=== PATIENT | male | born 1965 | race Caucasian/White ===

== ENCOUNTER → 2016-10-14 | Outpatient (CLI) | payer OTHER ==
[~2016-10-14] MED LIST: DVN80 PO; DVN80125 PO; IBUP-1050 PO; IPRA1AER2 INH; LBT/100 PO; MULT-506 PO; SERT-234 PO; SYMIN160 INFIL; TRAM-10 PO
--- NOTE | 2016-10-14 19:36 | DIAGNOSTIC IMAGING REPORT ---
MRI OF THE LEFT KNEE CLINICAL HISTORY: Left knee pain. Twisting injury. COMPARISON STUDY: Radiograph is a left knee dated 07/10/2016. MRI of the left knee dated 07/15/2016. TECHNIQUE: MRI of the left knee was performed utilizing proton density, T1, and T2-weighted sequences in the axial, sagittal, coronal planes. IV contrast was not administered for this examination. FINDINGS: Menisci: There is minimally increased signal within the posterior horn of the medial meniscus. This does not clearly extend to the articular surface, and could represent a small intrasubstance tear versus mucoid degeneration. The body of the lateral meniscus appears truncated, but is similar in appearance to 07/15/2016 examination. No flipped fragment is identified. Ligaments: The anterior and posterior cruciate ligaments are intact. The medial and lateral collateral ligaments are within normal limits. Extensor mechanism: The extensor mechanism is intact. Hoffa's fat pad is normal in appearance. Articular cartilage and bone: There is bony contusion identified within the lateral tibial plateau. There is no MRI evidence of fracture. There is only minimal degenerative cartilage loss in all 3 compartments. A calcified fabella is incidentally noted. Joint effusion: There is a moderate to large joint effusion. Soft tissues: The musculature surrounding the knee joint is normal in bulk and signal intensity. IMPRESSION: 1. There is a bony contusion identified within the lateral tibial plateau. 2. The body of the lateral meniscus appears truncated. This is similar to the 07/15/2016 examination, and no flipped fragment is identified. This may be related to previous partial meniscectomy. Correlation with the clinical and surgical history will be required. 3. Moderate to large joint effusion. 4. There is linear signal abnormality within the posterior horn of the medial meniscus. This does not clearly extend to the inferior articular surface and could represent a small intrasubstance tear versus mucoid degeneration. This was also seen previously. 5. The cruciate and collateral ligaments are well-maintained Electronically signed by: Jordan Barth M.D. 10/14/2016 7:34 PM Dictated Date/Time: 10/14/2016 7:26 PM
== END | disposition home or self-care (01) ==
LOC: C.MRI 18:14
PROVIDERS: ATTEND Orthopaedic Surgery
DX: M25.562 Pain in left knee (principal); M25.462 Effusion, left knee; R93.7 Abnormal findings on diagnostic imaging of other parts of musculoskeletal system

== ENCOUNTER → 2016-12-22 | Outpatient (CLI) | payer OTHER ==
[~2016-12-22] MED LIST changes: +OXYC-57 PO
[2016-12-22 16:38] LABS: BASO ABS # 0.07 K/uL (0-0.2); COMPLETE YES; EOS % 4.5 %; HEMATOCRIT 41.9 % (42-52); LYMPH % 28.3 %; LYMPH ABS # 1.99 K/uL (1.2-3.4); MEAN CELL VOLUME 90.5 fL (80-100); MEAN CORPUSCULAR HEMOGLOBIN 30.2 pg (25-34); MEAN CORPUSCULAR HGB CONC 33.4 g/dl (32-36); MEAN PLATELET VOLUME 9.1 fL (7.4-10.4); MONO % 8.8 %; NEUT % 56.4 %; PLATELET COUNT 215 K/uL (130-400); RED BLOOD COUNT 4.63 M/uL (4.7-6.1); WHITE BLOOD COUNT 7.04 K/uL (4.8-10.8)
[2016-12-22 17:21] LABS: C-REACTIVE PROTEIN < 0.29 mg/dl (0-0.29); RHEUMATOID FACTOR < 10.0 U/mL (0-15)
[2016-12-22 18:08] LABS: LYME DISEASE AB IGG NEG (NEG); LYME DISEASE AB IGM NEG (NEG)
[2016-12-26 20:19] LABS: HLA-B27** TC 528X NEGATIVE (NEGATIVE)
== END | disposition home or self-care (01) ==
LOC: C.LAB 15:13
PROVIDERS: ATTEND Orthopaedic Surgery
DX: M25.562 Pain in left knee (principal); M25.462 Effusion, left knee

== ENCOUNTER → 2017-03-01 | Day surgery (SDC) | payer OTHER ==
[2017-02-01 15:56] LABS: POTASSIUM 3.8 mmol/L (3.5-5.1)
[2017-02-18 11:18] VITALS: Ht 185.4 cm; Wt 108.0 kg
[~2017-03-01] VITALS: Ht 185.4 cm; Wt 108.0 kg
[~2017-03-01] MED LIST changes: +ATROPINE SULFATE 0.1 MG/ML 5ML SYR IV PRN; +BUPIVACAINE 0.5 % 5 MG/1 ML MPF 30ML VIAL ONE; +CEFAZOLIN 2000 MG/60 ML D5W IV SCH; +DEXAMETHASONE SOD INJ 4 MG/ML VIAL ONE; -DVN80125 PO; +EpHEDrine SULFATE 50MG/5ML SYR ONE; +EpHEDrine SULFATE INJ 50 MG/ML AMP IV PRN; +EpINEphrine INJ 1MG/ML AMP 1 MG/ML AMP ONE; +FENTANYL CITRATE INJ 50 MCG/1 ML 2 ML VIAL IV PRN; +FENTANYL CITRATE INJ 50 MCG/1 ML 2 ML VIAL ONE; +FLUMAZENIL 0.1 MG/1 ML 10 ML VIAL IV PRN; +HYDROmorphone INJ 2 MG/ML SYR/VIAL IV PRN; -IBUP-1050 PO; +KETOROLAC TROMETHAMINE 30 MG/ML VIAL IV STA; +KETOROLAC TROMETHAMINE 30 MG/ML VIAL ONE; +LABETALOL HCL IV 5 MG/ML 20ML IV PRN; +LACTATED RINGER'S 1000ML 1,000 ML IV SCH; +LIDOCAINE HCL 2% 2 ML VIAL (20MG/ML) ONE; +MEPERIDINE HCL 25 MG/ML CARP IV PRN; +MIDAZOLAM HCL 1 MG/ML 2ML VIAL ONE; +NALOXONE HCL 0.4 MG/1 ML VIAL/CARP IV PRN; +ONDANSETRON INJ 2 MG/ML 2 ML VIAL IV PRN; +ONDANSETRON INJ 2 MG/ML 2 ML VIAL ONE; -OXYC-57 PO; +OXYCODONE/ACETAMINOPHEN 5-325 TAB PO PRN; +PHENYLEPHRINE 100MCG/ML 5ML SYR IV PRN; +PROPOFOL IV EMULSION 10 MG/ML 20 ML VIAL IV ONE; +ROPIVACAINE 0.5% 5 MG/ML 30 ML VIAL ONE; +SODIUM CHLORIDE 0.9% 1000ML 1,000 ML IV SCH
--- NOTE | 2017-03-01 07:23 | History & Physical Bridge - SC ---
H&P Re-Evaluation Bridge Note: I have examined the patient, reviewed the History & Physical and in the interval since the performance of the History & Physical I have noted the following changes of clinical significance: No changes noted
--- NOTE | 2017-03-01 08:43 | [facility] Post Operative Brief Note ---
Immediate Operative Summary Operative Date Mar 01, 2017. Pre-Operative Diagnosis Left Knee Osteoarthritis, Pain Post-Operative Diagnosis Same, DJD LATERAL TIBIAL PLATEAU Procedure(s) Performed left Knee Arthroscopy, Partial Lateral Menisectomy, Synovectomy Surgeon Dr. Jung China Decorator Surgeon(s) Niki Gold PA-C Estimated Blood Loss None Findings ABOVE AND DICTATED Specimens None Anesthesia LMA Complication(s) None Disposition Recovery Room / PACU
--- NOTE | 2017-03-01 08:54 | Discharge Instructions-SurgCtr ---
Discharge Instructions Date of Service Mar 01, 2017. Visit Reason for Visit: Left Knee Osteoarthritis, Pain Discharge Discharge Diagnosis / Problem: SAME ABOVE Discharge Goals Goal(s): Decrease discomfort, Improve function Activity Recommendations Activity Limitations: as noted below Lifting Limitations: gradually increase as tolerated Exercise/Sports Limitations: until after follow-up appointment Shower/Bathe: may shower/bathe in 3 days Anesthesia . Post Anesthesia Instructions: If you have had General Anesthesia or IV Sedation: * Do not drive today. * Resume driving when surgeon permits. * Do not make important decisions or sign legal documents today. * Call surgeon for: 1. Temperature elevations greater than 101 degrees F. 2. Uncontrollable pain. 3. Excessive bleeding. 4. Persistent nausea and vomiting. 5. Medication intolerance (nausea, vomiting or rash). * For nausea and vomiting use only clear liquids such as: tea, soda, bouillon until nausea subsides, then gradually increase diet as tolerated. * If you have any concerns or questions, call your surgeon's office. If physician is unavailable and it is an emergency, call 911 or go to the nearest emergency room. . Instructions / Follow-Up Instructions / Follow-Up MEDICATIONS: * Resume previous medications unless instructed otherwise by your surgeon. * Always take pain medication on a full stomach or with food to avoid upset stomach. * Do not drink alcohol or drive while taking narcotics. * Ibuprofen or Tylenol may be taken if narcotic not needed. SPECIAL CARE INSTRUCTIONS: __ None _X_ Keep extremity elevated and iced x 48 hours; apply ice 20-30 minutes 8-10 times/day. May remove at night. __ Crutches __ May discard when able __ Brace/Post-op shoe __ 24 hrs/day __ Remove at night _X_ Dressing __ Maintain until seen in office, may shower with plastic over site _X_ Remove dressings in 24-48 hours and then may shower _X_ Cover incisions with band-aids after showering __ Do not remove steri-strips Call physician if chills or temperature rises above 102 degrees or pain unrelieved by prescribed pain medications. Office [phone] Diet Recommendations Home Diet: resume previous diet Procedures Procedures Performed: left Knee Arthroscopy, Partial Lateral Menisectomy, Synovectomy Pending Studies Studies pending at discharge: no Medical Emergencies . Who to Call and When: Medical Emergencies: If at any time you feel your situation is an emergency, please call 911 immediately. . Non-Emergent Contact Non-Emergency issues call your: Primary Care Provider . . "Provider Documentation" section prepared by Joey Gold. . [place] Drug Monitoring Program Search Results: no issues identified
--- NOTE | 2017-03-01 10:15 | Anesthesia Progress Nt - [facility] ---
Anesthesia Post Op Note Date & Time Mar 01, 2017 at 10:15 Vital Signs Pain Intensity: 4 Vital Signs Past 12 Hours Date Time Temp Pulse Resp B/P (MAP) Pulse Ox O2 Delivery O2 Flow Rate FiO2 03/01/17 10:02 Room Air 03/01/17 08:58 36.4 73 16 99/63 95 Diffusion Mask 5 03/01/17 07:16 36.5 73 16 152/87 (108) 95 Room Air Notes Mental Status: alert / awake / arousable, participated in evaluation Pt Amnestic to Procedure: Yes Nausea / Vomiting: adequately controlled Pain: adequately controlled Airway Patency, RR, SpO2: stable & adequate BP & HR: stable & adequate Hydration State: stable & adequate Anesthetic Complications: no major complications apparent
[2017-03-01 10:30] VITALS: TEMP 36.4
[2017-03-01 10:56] VITALS: BP 136/81; PULSE 72; O2SAT 95
== END | disposition home or self-care (01) ==
LOC: X.SURG 07:03
PROVIDERS: ATTEND Orthopaedic Surgery
DX: M23.269 Derangement of other lateral meniscus due to old tear or injury, unspecified knee (principal); M25.462 Effusion, left knee; M17.9 Osteoarthritis of knee, unspecified; I10 Essential (primary) hypertension; Z98.1 Arthrodesis status

== ENCOUNTER → 2017-03-18 | Outpatient (CLI) | payer OTHER ==
[~2017-03-18] MED LIST changes: -ATROPINE SULFATE 0.1 MG/ML 5ML SYR IV PRN; -BUPIVACAINE 0.5 % 5 MG/1 ML MPF 30ML VIAL ONE; -CEFAZOLIN 2000 MG/60 ML D5W IV SCH; -DEXAMETHASONE SOD INJ 4 MG/ML VIAL ONE; -EpHEDrine SULFATE 50MG/5ML SYR ONE; -EpHEDrine SULFATE INJ 50 MG/ML AMP IV PRN; -EpINEphrine INJ 1MG/ML AMP 1 MG/ML AMP ONE; -FENTANYL CITRATE INJ 50 MCG/1 ML 2 ML VIAL IV PRN; -FENTANYL CITRATE INJ 50 MCG/1 ML 2 ML VIAL ONE; -FLUMAZENIL 0.1 MG/1 ML 10 ML VIAL IV PRN; -HYDROmorphone INJ 2 MG/ML SYR/VIAL IV PRN; -KETOROLAC TROMETHAMINE 30 MG/ML VIAL IV STA; -KETOROLAC TROMETHAMINE 30 MG/ML VIAL ONE; -LABETALOL HCL IV 5 MG/ML 20ML IV PRN; -LACTATED RINGER'S 1000ML 1,000 ML IV SCH; -LIDOCAINE HCL 2% 2 ML VIAL (20MG/ML) ONE; -MEPERIDINE HCL 25 MG/ML CARP IV PRN; -MIDAZOLAM HCL 1 MG/ML 2ML VIAL ONE; -NALOXONE HCL 0.4 MG/1 ML VIAL/CARP IV PRN; -ONDANSETRON INJ 2 MG/ML 2 ML VIAL IV PRN; -ONDANSETRON INJ 2 MG/ML 2 ML VIAL ONE; -OXYCODONE/ACETAMINOPHEN 5-325 TAB PO PRN; -PHENYLEPHRINE 100MCG/ML 5ML SYR IV PRN; -PROPOFOL IV EMULSION 10 MG/ML 20 ML VIAL IV ONE; -ROPIVACAINE 0.5% 5 MG/ML 30 ML VIAL ONE; -SODIUM CHLORIDE 0.9% 1000ML 1,000 ML IV SCH
--- NOTE | 2017-03-18 13:27 | DIAGNOSTIC IMAGING REPORT ---
ULTRASOUND LEFT LOWER EXTREMITY VENOUS CLINICAL HISTORY: Left leg pain. COMPARISON STUDY: Left lower extremity venous ultrasound dated 10/25/2014. TECHNIQUE: Real-time, grayscale, and color Doppler sonography of the deep veins of the left lower extremity was performed from the inguinal crease to the calf. Compression and augmentation were utilized. FINDINGS: There is no sonographic evidence of deep venous thrombosis identified in the left lower extremity. The common femoral, superficial femoral, and popliteal veins are patent and normally compressible. The greater saphenous vein and the profunda femoris vein at the junction with the common femoral vein are clear. The visualized calf veins are patent. IMPRESSION: There is no sonographic evidence of deep venous thrombosis identified in the left lower extremity. Electronically signed by: Jordan Barth M.D. 03/18/2017 1:25 PM Dictated Date/Time: 03/18/2017 1:25 PM
== END | disposition home or self-care (01) ==
LOC: C.ULTRBC 12:51
PROVIDERS: ATTEND Orthopaedic Surgery
DX: M79.605 Pain in left leg (principal); R60.0 Localized edema

== ENCOUNTER 2017-06-05 00:38 | Emergency (ER) | payer OTHER ==
[~2017-06-05] VITALS: Ht 185.4 cm; Wt 130.3 kg
[2017-06-05 00:47] VITALS: Ht 185.4 cm; Wt 130.3 kg
[2017-06-05] MEDS ORDERED: SODIUM CHLORIDE 0.9% 1000ML 1,000 ML IV STA ×2 (01:22→02:55)
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
[2017-06-05 01:43] LABS: BASO % 0.4 %; BASO ABS # 0.04 K/uL (0-0.2); COMPLETE YES; HEMATOCRIT 43.9 % (42-52); IG% 1.5 %; LYMPH % 25.8 %; LYMPH ABS # 2.69 K/uL (1.2-3.4); MEAN CORPUSCULAR HEMOGLOBIN 30.1 pg (25-34); MEAN CORPUSCULAR HGB CONC 34.2 g/dl (32-36); MEAN PLATELET VOLUME 9.5 fL (7.4-10.4); NEUT % 62.3 %; PLATELET COUNT 252 K/uL (130-400); RED BLOOD COUNT 4.99 M/uL (4.7-6.1); WHITE BLOOD COUNT 10.41 K/uL (4.8-10.8)
[2017-06-05] MEDS ORDERED: OPTIRAY 320 IV PRN (01:45)
[2017-06-05 01:57] LABS: BUN/CREATININE RATIO 13.8 (10-20); CALCIUM 8.3 mg/dl (8.5-10.1); CREATININE 1.31 mg/dl (0.60-1.40)
[2017-06-05] MEDS ORDERED: ACETAMINOPHEN 500 MG TAB PO STA (02:14)
[2017-06-05 02:28] LABS: MAGNESIUM 2.3 mg/dl (1.8-2.4)
[2017-06-05] MEDS ORDERED: OXYC-57 PO (03:56)
[2017-06-05] MEDS ORDERED: METOCLOPRAMIDE HCL INJ 5 MG/ML 2 ML VIAL IV STA (04:09)
[2017-06-05 04:40] VITALS: BP 142/80; PULSE 99; TEMP 36.5; O2SAT 94
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
== END 2017-06-05 04:39 | disposition home or self-care (01) ==
LOC: EDBD 00:38 → C.EDB 00:39
DX: F10.129 Alcohol abuse with intoxication, unspecified (principal); Y90.7 Blood alcohol level of 200-239 mg/100 ml; S09.90XA Unspecified injury of head, initial encounter; S00.03XA Contusion of scalp, initial encounter; Y04.8XXA Assault by other bodily force, initial encounter; M54.2 Cervicalgia; I10 Essential (primary) hypertension; M47.22 Other spondylosis with radiculopathy, cervical region; Z82.49 Family history of ischemic heart disease and other diseases of the circulatory system

== ENCOUNTER → 2017-08-03 | Outpatient (CLI) | payer OTHER ==
[~2017-08-03] MED LIST changes: +OXYC-57 PO; -TRAM-10 PO
--- NOTE | 2017-08-03 14:46 | DIAGNOSTIC IMAGING REPORT ---
L RIBS UNILATERAL WITH PA CHEST HISTORY: 51 years-old Male R07.89 OTHER CHEST PAIN acute left-sided atypical chest pain COMPARISON: Chest radiograph 11/03/2014 TECHNIQUE: PA view the chest with 4 views of the left ribs FINDINGS: Cardiomediastinal and hilar silhouettes are within normal limits. No pneumothorax, pleural effusion, focal airspace consolidation or overt pulmonary edema. Fusion hardware of the lower cervical spine. No acute rib fracture identified. IMPRESSION: 1. No acute cardiopulmonary process. 2. No acute rib fracture or pneumothorax identified. The above report was generated using voice recognition software. It may contain grammatical, syntax or spelling errors. Electronically signed by: Wang Means M.D. 08/03/2017 2:45 PM Dictated Date/Time: 08/03/2017 2:42 PM
== END | disposition home or self-care (01) ==
LOC: C.RAD1850 14:23
PROVIDERS: ATTEND Family Medicine
DX: R07.89 Other chest pain (principal)

== ENCOUNTER → 2017-08-24 | Outpatient (CLI) | payer OTHER ==
[2017-08-24 15:41] LABS: BASO % 0.6 %; BASO ABS # 0.05 K/uL (0-0.2); EOS % 3.3 %; EOS ABS # 0.27 K/uL (0-0.5); HEMATOCRIT 45.2 % (42-52); HEMOGLOBIN 15.8 g/dL (14.0-18.0); IG# 0.04 K/uL (0.00-0.02); LYMPH ABS # 2.05 K/uL (1.2-3.4); MEAN CELL VOLUME 88.3 fL (80-100); MEAN CORPUSCULAR HEMOGLOBIN 30.9 pg (25-34); MEAN PLATELET VOLUME 9.4 fL (7.4-10.4); MONO % 6.7 %; MONO ABS # 0.55 K/uL (0.11-0.59); NEUT % 63.9 %; NEUT ABS # 5.23 K/uL (1.4-6.5); PLATELET COUNT 247 K/uL (130-400); RED CELL DISTRIBUTION WIDTH CV 13.2 % (11.5-14.5); RED CELL DISTRIBUTION WIDTH SD 42.4 fL (36.4-46.3); WHITE BLOOD COUNT 8.19 K/uL (4.8-10.8)
[2017-08-24 16:06] LABS: BLOOD UREA NITROGEN 15 mg/dl (7-18); CALCIUM 9.2 mg/dl (8.5-10.1); CARBON DIOXIDE 27 mmol/L (21-32); CREATININE 0.89 mg/dl (0.60-1.40); GLUCOSE 96 mg/dl (70-99); POTASSIUM 4.3 mmol/L (3.5-5.1); SODIUM 137 mmol/L (136-145); URIC ACID 6.6 mg/dl (2.6-7.2)
== END | disposition home or self-care (01) ==
LOC: C.LAB1850 14:34
PROVIDERS: ATTEND Orthopaedic Surgery Sports Medicine
DX: M25.462 Effusion, left knee (principal)

== ENCOUNTER → 2018-01-01 | Outpatient (CLI) | payer OTHER ==
[~2018-01-01] MED LIST changes: +B-CO1CAP3 PO; -OXYC-57 PO
--- NOTE | 2018-01-01 14:22 | DIAGNOSTIC IMAGING REPORT ---
R FOOT MIN 3 VIEWS ROUTINE CLINICAL HISTORY: Right foot pain COMPARISON: None. DISCUSSION: No fractures or dislocations are visualized. There are no erosive or destructive changes. There is a small plantar calcaneal spur. There is Achilles insertional spur. There are minor osteoarthritic changes the level the first metatarsal phalangeal joint. There is a small corticated ossicle adjacent to the distal aspect of the proximal phalanx of the great toe. IMPRESSION: 1. No acute fractures 2. No evidence of erosive disease 3. Calcaneal spurring Electronically signed by: Rm Pope M.D. 01/01/2018 2:21 PM Dictated Date/Time: 01/01/2018 2:19 PM
== END | disposition home or self-care (01) ==
LOC: C.LAB 13:35
PROVIDERS: ATTEND Nurse Practitioner Family
DX: M79.671 Pain in right foot (principal); M77.31 Calcaneal spur, right foot

== ENCOUNTER 2019-03-29 10:27 | Observation (INO) ==
[2019-03-29] MEDS ORDERED: ASPIRIN CHEW 324 MG PO STA (10:43)
--- NOTE | 2019-03-29 10:51 | XRay Report ---
XR chest 1V portable CLINICAL HISTORY: Chest Pain pain COMPARISON STUDY: 01/08/2018 FINDINGS: The bones soft tissues and hemidiaphragms are normal. The cardiomediastinal silhouette is n ormal. The lungs are clear. The pulmonary vasculature is normal. IMPRESSION: Negative chest. The above report was generated using voice recognition software. It may contain grammatical, syntax or spelling errors. Electronically signed by: Kurtis Santos M.D. 03/29/2019 10:49 AM
[2019-03-29 11:15] LABS: Basophils # (auto) 0.02 K/uL (0-0.2); Basophils % (auto) 0.3 %; Eosinophils # (auto) 0.05 K/uL (0-0.5); Eosinophils % (auto) 0.9 %; Hematocrit (blood only) 45.2 % (42-52); Hemoglobin 15.4 g/dL (14.0-18.0); Immature Granulocytes # (auto) 0.04 K/uL (0.00-0.02); Immature Granulocytes % (auto) 0.7 %; Lymphocytes # (auto) 0.53 K/uL (1.2-3.4); Lymphocytes % (auto) 9.3 %; Mean Corpuscular Hgb Conc 34.1 g/dL (32-36); Mean Corpuscular Volume 89.3 fL (80-100); Monocytes % (auto) 1.7 %; Neutrophils # (auto) 4.98 K/uL (1.4-6.5); Neutrophils % (auto) 87.1 %; Platelet Count 185 K/uL (130-400); RDW Coefficient of Variation 13.4 % (11.5-14.5); RDW Standard Deviation 43.7 fL (36.4-46.3); Red Blood Count 5.06 M/uL (4.7-6.1); White Blood Count 5.72 K/uL (4.8-10.8)
[2019-03-29 11:29] LABS: D Dimer 930 ug/L FEU (0-500)
[2019-03-29 11:31] LABS: Alanine Aminotransferase 61 U/L (12-78); Aspartate Aminotransferase 30 U/L (15-37); BUN Creatinine Ratio 17.1 (10-20); Blood Urea Nitrogen 17 mg/dl (7-18); Calcium 8.3 mg/dl (8.5-10.1); Carbon Dioxide 25 mmol/L (21-32); Chloride 107 mmol/L (98-107); Creatinine Clr Calc Pharmacy 108.2 ml/min; Est GFR (African American) 95.5; Est GFR (Non-African American) 82.4; Glucose 146 mg/dl (70-99); Sodium 139 mmol/L (136-145)
[2019-03-29 11:35] LABS: Albumin Globulin Ratio 1.3 (0.9-2); Alkaline Phosphatase 70 U/L (45-117); Bilirubin,Total 0.4 mg/dl (0.2-1); Globulin 3.2 gm/dl (2.5-4.0); Total Protein 7.2 gm/dl (6.4-8.2); Troponin I < 0.015 ng/ml (0-0.045)
--- NOTE | 2019-03-29 13:26 | History & Physical Report ---
Date of Service March 29, 2019 Assessment & Plan (1) Hypertensive urgency: Admit to PCU on telemetry Vital signs every 4 hours Troponin every 6 hours with EKGs to rule out acute coronary syndrome Lipid panel and A1c in a.m. CBC CMP BMP in a.m. Replenish electrolytes as needed DVT prophylaxis Lovenox 40 SC daily Started aspirin 81 daily Hydralazine 10 mg p.o. 3 times daily as needed for blood pressure higher than 160/90 Continue labetalol to 200 mg p.o. twice daily Continue ipratropium albuterol 1 puff every 6 hours as needed for sob Echocardiogram pending Percocet 10 mg 325 every 4 hours as needed for severe pain pain management. Hold opiates if respiratory rate less than 12. Toradol 30 mg IV every 6 hours as needed for moderate pain Tramadol 50 mg p.o. every 6 hours as needed for moderate pain pain. Full code Present on Admission?: Yes (2) Chest pain: As the above Present on Admission?: Yes (3) History of meniscectomy of right knee: Follow-up with orthopedics Dr. Joey Anderson Present on Admission?: Yes History of Present Illness Chief Complaint: Chest pain Primary Care Provider: Ismael Eddy MD Patient is a 53 years old male with past medical history of hypertension cervical radiculopathy, osteoarthritis , ventral hernia who was brought from OR this morning with right knee partial medial meniscectomy chondroplasty and extensive synovectomy under general anesthesia by Dr. Joey Anderson, DO orthopedic. After procedure was done and patient wake up from anesthesia started to have left-sided chest pain with sweating. Patient's blood pressure was also elevated, the high is being 180/108 and improved with labetalol and hydralazine IV. Patient was then brought to the emergency room for further ev aluation and treatment. Chest pain subsided once when patient arrived to the emergency room he was given aspirin 324 p.o. and patient condition in general improved. Were reviewed white blood cell count 5.72, hemoglobin 15.4, hematocrit 45.2 platelets 185, 139, chloride 107, anion gap 7, BUN creatinine 1.02, GFR 8.2 BUN/creatinine ratio 117.1 glucose 146 calcium 8.3, troponin 0.015. Chest x-ray negative chest, lungs. EKG normal sinus rhythm EKG shows NSR with normal intervals, normal QRS complexes, no ST elevation or depression, and no arrhythmias. When compared to March 29, 2019. Ventricular rate 67, no ST segment elevation or depression. Decision was made to admit patient for observation on telemetry at PCU Allergies Allergy/AdvReac Type Severity Reaction Status Date / Time No Known Allergies Allergy Verified 03/29/19 11:19 Home Medications Home Medications Medication Instructions Recorded Confirmed Type ipratropium-albuterol [Combivent 1 puff INHALATION 6XD PRN 03/21/19 03/29/19 History Respimat] labetalol 200 mg PO BID 03/21/19 03/29/19 History multivitamin 1 tab PO DAILY 03/21/19 03/29/19 History sertraline [Zoloft] 200 mg PO QAM 03/21/19 03/29/19 History tramadol [Ultram] 50 mg PO Q6H PRN #30 tab 03/29/19 03/29/19 Rx Past Med/Surg History Medical History Depression Diverticular disease H/O DIVERTICULITIS PERFORATION Hypertension Pneumonia S/P LAPAROTOMY / BOWEL RESECTION Surgical History Fusion of spine C3-C5. FULL ROM. H/O wrist surgery RIGHT History of appendectomy History of bowel resection History of bronchoscopy History of colonoscopy History of colostomy History of colostomy reversal History of detached retina repair LEFT History of herniorrhaphy open abdominal hernia x8 with mesh. 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 Beliefs That Will Affect Care: None Current Living Situation: Spouse and Family Feels Safe at Home: Yes Smoking Status: Never smoker Tobacco Type: cigarettes ; Second Hand Exposure: No ; Hx Alcohol Use: Yes Alcohol type: beer Hx Substance Use: No Review of Systems Review of Systems: All systems reviewed & are unremarkable except as noted in HPI & below Physical Exam Constitutional: WD/WN, vitals as above well developed and + obese Eyes: PERRL, conjunctivae normal, anicteric sclerae ENMT: external ear and nose normal, oropharynx normal Neck: trachea midline, no thyromegaly Respiratory: normal respiratory effort, lungs clear to auscultation Cardiovascular: RRR, no murmur, no edema Chest (Breasts): normal inspection/palpation of breasts Gastrointestinal (Abdomen): normal bowel sounds, soft, nontender, no hepatosplenomegaly Musculoskeletal: Right knee wound clean dry and intact, normal pulses of dorsalis pedis bilaterally Skin: no rashes, warm and dry Neurologic: patellar DTR's 2+ bilat, sensation intact Psychiatric: A+Ox3, euthymic affect Genitourinary: no testicular masses, no penis abnormality Lymphatic: no cervical or axillary lymphadenopathy Results & Data Vital Signs (Past 12 Hours) Vital Signs Pulse Pulse Resp BP BP Pulse Ox 03/29/19 12:27 76 17 148/96 H 95 03/29/19 11:08 76 20 159/98 H 93 03/29/19 10:33 76 20 147/98 H 96 Code Status & VTE Plan Code Status Full code VTE Prophylaxis Plan VTE Prophylaxis will be ordered: Yes PG Care Time/CCT Total # of Minutes Spent Total Time Spent with Patient: Total time spent is greater than 50% in coordination of care (as documented) at patient's floor/unit and/or counseling patient:
[2019-03-29] MEDS ORDERED: ZOLPIDEM TARTRATE 5 MG TAB PO PRN (14:12)
[2019-03-29] MEDS ORDERED: MAGNESIUM HYDROXIDE SUSP 30 ML UDC PO PRN (14:12)
[2019-03-29] MEDS ORDERED: ACETAMINOPHEN 325 MG TAB PO PRN (14:12)
[2019-03-29] MEDS ORDERED: NITROGLYCERIN SL 0.4 MG/TAB TAB SL PRN (14:12)
[2019-03-29] MEDS ORDERED: ALUMINUM/MAGNESIUM SUSP 30 ML UDC PO PRN (14:12)
[2019-03-29] MEDS ORDERED: TRAMADOL HCL 50 MG TABLET PO PRN (14:12)
[2019-03-29] MEDS ORDERED: POLYETHYLENE (MIRALAX) 17 GM PACK PO PRN (14:12)
[2019-03-29] MEDS ORDERED: IPRATROPIUM BROMIDE/ALBUTEROL respimat INH INH PRN (14:12)
[2019-03-29] MEDS ORDERED: HydrALAZINE 10 MG TAB PO SCH (14:12)
[2019-03-29] MEDS ORDERED: HydrALAZINE 10 MG TAB PO PRN (14:25)
[2019-03-29] MEDS: OXYCODONE/ACETAMINOPHEN 5mg/325mg TAB PO PRN ×3 (14:39→23:15)
[2019-03-29] MEDS: ASPIRIN 81 MG ECTAB PO SCH (14:40)
[2019-03-29 14:52] LABS: Prothrombin Time 10.5 Seconds (9.0-12.0)
[2019-03-29 15:05] LABS: NT Pro B Type Natriuretic Pept 47 pg/ml (0-900); Troponin I < 0.015 ng/ml (0-0.045)
--- NOTE | 2019-03-29 16:41 | Emergency Department Note ---
Entered by Nani Vo acting as a scribe for History of Present Illness General Chief complaint: Chest Pain Stated complaint: chest pain, nausea Source: patient Mode of arrival: wheelchair Limitations: no limitations History of Present Illness Onset (ago): hour(s) 1 Location: chest Radiation: non-radiation Pain Consistency: + constant Quality: + other ("tight pressure") Relieved By: + none Exacerbated By: + none Associated symptoms: + nausea/vomiting (+dry heaves), + shortness of breath and + other (-arm pain, -jaw pain) Treatments prior to arrival: none The patient is a 53 year old male w/ PMHx of DM, HTN and hernia repair who p resents to the ED w/ CC of chest pain beginning earlier this morning. He was at the surgery center undergoing a right knee arthroscopy with partial medial meniscus resection. He received general anesthesia with LMA and as he was emerging from anesthesia, states he experienced right sided chest pain, shortness of breath and nausea. He did dry heave but did not vomit. He describes the chest pain as feeling like "tight pressure". He denies any arm or jaw pain. He has never experienced similar symptoms in the past. Patient denies swelling of calves, recent trips, history of immobilization or recent surgery, prior history of DVT, hemoptysis, history of malignancy or history of smoking. Home Medications Home Medications Medication Instructions Recorded Confirmed Type ipratropium-albuterol [Combivent 1 puff INHALATION 6XD PRN 03/21/19 03/29/19 History Respimat] labetalol 200 mg PO BID 03/21/19 03/29/19 History multivitamin 1 tab PO DAILY 03/21/19 03/29/19 History sertraline [Zoloft] 200 mg PO QAM 03/21/19 03/29/19 History tramadol [Ultram] 50 mg PO Q6H PRN #30 tab 03/29/19 03/29/19 Rx Allergies Allergy/AdvReac Type Severity Reaction Status Date / Time No Known Allergies Allergy Verified 03/29/19 11:19 Past Med/Surg History Medical History Depression Diverticular disease H/O DIVERTICULITIS PERFORATION Hypertension Pneumonia S/P LAPAROTOMY / BOWEL RESECTION Surgical History Fusion of spine C3-C5. FULL ROM. H/O wrist surgery RIGHT History of appendectomy History of bowel resection History of bronchoscopy History of colonoscopy History of colostomy History of colostomy reversal History of detached retina repair LEFT History of herniorrhaphy open abdominal hernia x8 with mesh. History of total knee replacement LEFT Family History Other No known health problems Social History Preferred Language: Kosovan Communication Ability: Effective Certifier Required: No Beliefs That Will Affect Care: None Current Living Situation: Family Feels Safe at Home: Yes Smoking Status: Never smoker Tobacco Type: cigarettes ; Second Hand Exposure: No ; Hx Alcohol Use: Yes Alcohol type: beer Hx Substance Use: No Review of Systems See HPI for pertinent positives & negatives. and A total of 10 systems reviewed and were otherwise negative Physical Exam Vital Signs Vital Signs - 24 hr 03/29/19 10:33 03/29/19 10:45 03/29/19 11:08 Temperature Source Oral Sepsis Recent Fever Within 48 Hours No Sepsis New/Unexplained Change in Mental Status No Sepsis Action Taken by Nursing No Action Required Pulse Rate 76 Pulse Rate [Left] 76 Pulse Rhythm Regular Pulse Rhythm [Left] Respiratory Rate 20 20 Respiratory Effort / Characteristics Non-Labored Spontaneous Non-Labored Spontaneous Respiratory Depth Normal Blood Pressure 147/98 H Blood Pressure [Right Arm] 159/98 H Blood Pressure Mean 114 Blood Pressure Mean [Right Arm] 118 Blood Pressure Position Lying Blood Pressure Position [Right Arm] Lying Pulse Oximetry 96 93 Oxygen Delivery Method Room Air Room Air Room Air 03/29/19 12:27 Temperature Source Sepsis Recent Fever Within 48 Hours Sepsis New/Unexplained Change in Mental Status Sepsis Action Taken by Nursing Pulse Rate Pulse Rate [Left] 76 Pulse Rhythm Pulse Rhythm [Left] Regular Respiratory Rate 17 Respiratory Effort / Characteristics Non-Labored Spontaneous Respiratory Depth Normal Blood Pressure Blood Pressure [Right Arm] 148/96 H Blood Pressure Mean Blood Pressure Mean [Right Arm] 113 Blood Pressure Position Blood Pressure Position [Right Arm] Lying Pulse Oximetry 95 Oxygen Delivery Method Room Air GENERAL: Patient is sitting up in bed, alert, disheveled, non-toxic, wearing hospital gown EYE EXAM: normal conjunctiva OROPHARYNX: no exudate, no erythema, lips, buccal mucosa, and tongue normal and mucous membranes are moist NECK: supple, no nuchal rigidity, no adenopathy, non-tender LUNGS: Clear to auscultation. Normal chest wall mechanics HEART: no murmurs, S1 normal and S2 normal ABDOMEN: abdomen soft, non-tender, normo-active bowel sounds, no masses, no rebound or guarding. BACK: Back is symmetrical on inspection and there is no deformity, no midline tenderness, no CVA tenderness. SKIN: no rashes and no bruising UPPER EXTREMITIES: upper extremities are grossly normal. LOWER EXTREMITIES: No pitting edema. Dressing over right knee, DP 2/4. Gross sensation intact. NEURO EXAM: Normal sensorium, cranial nerves II-XII grossly intact, normal speech, no gross weakness of arms, right lower extremity in bandage. Course ED COURSE: Vital signs were reviewed and showed the patient is hypertensive. The patients medical record was reviewed The above diagnostic studies were performed and reviewed. ED treatments and interventions as stated above. 1040: The patient was evaluated in room B4. A complete history and physical examination was performed. 1213: I discussed the patients case with Dr. Roldan, [facility] Hospitalist. The patient will be further evaluated. 1220: Upon reevaluation, the patient is resting comfortably. I discussed my findings with the patient and he understands and agrees with the treatment plan. Based on the patients age, coexisting illnesses, exam and lab findings the decision to treat as an inpatient was made. The patient remained stable while under my care. The patient will be evaluated for further management. Administered Medications Aspirin (Ecotrin Ectab) 81 mg PO QAM [facility] Stop: 04/28/19 14:11 Last Admin: 03/29/19 14:40 Dose: 81 mg Documented by: [id number] Oxycodone/Acetaminophen (Percocet 5mg/325mg) 2 tab PO Q4H PRN PRN Reason: Moderate Pain Stop: 04/12/19 14:11 Last Admin: 03/29/19 14:39 Dose: 2 tab Documented by: [id number] Discontinued Medications Aspirin (Aspirin) 324 mg PO NOW STA Stop: 03/29/19 10:44 Last Admin: 03/29/19 11:12 Dose: 324 mg Documented by: [id number] Medical Decision Making Differential Diagnosis Differential diagnoses includes but is not limited to acute coronary syndrome, myocardial infarction, pericarditis, pulmonary embolus, aortic dissection, pneumonia, pneumothorax, musculoskeletal, shingles, esophageal. Medical Records Attestation: I reviewed the patient's medical records. Home Medications Current Medication List: was personally reviewed by me Laboratory Data Attestation: I reviewed the patient's lab results. Result diagrams: 03/29/19 10:53 03/29/19 10:53 Lab Results 03/29/19 03/29/19 03/29/19 Range/Units 10:53 10:53 10:53 WBC 5.72 (4.8-10.8) K/uL RBC 5.06 (4.7-6.1) M/uL Hgb 15.4 (14.0-18.0) g/dL Hct 45.2 (42-52) % MCV 89.3 (80-100) fL MCH 30.4 (25-34) pg MCHC 34.1 (32-36) g/dL RDW Std Deviation 43.7 (36.4-46.3) fL RDW Coeff of Ashish 13.4 (11.5-14.5) % Plt Count 185 (130-400) K/uL MPV 9.0 (7.4-10.4) fL Immature Gran % (Auto) 0.7 % Neut % (Auto) 87.1 % Lymph % (Auto) 9.3 % [place] % (Auto) 1.7 % Eos % (Auto) 0.9 % Baso % (Auto) 0.3 % Immature Gran # (Auto) 0.04 H (0.00-0.02) K/uL Neut # (Auto) 4.98 (1.4-6.5) K/uL Lymph # (Auto) 0.53 L (1.2-3.4) K/uL [place] # (Auto) 0.10 L (0.11-0.59) K/uL Eos # (Auto) 0.05 (0-0.5) K/uL Baso # (Auto) 0.02 (0-0.2) K/uL PT (9.0-12.0) Seconds INR (0.9-1.1) D-Dimer 930 H* (0-500) ug/L FEU Sodium 139 (136-145) mmol/L Potassium 4.0 (3.5-5.1) mmol/L Chloride 107 (98-107) mmol/L Carbon Dioxide 25 (21-32) mmol/L Anion Gap 7.0 (3-11) BUN 17 (7-18) mg/dl Creatinine 1.02 (0.6-1.4) mg/dl Est Cr Clr Drug Dosing 108.2 ml/min Est GFR ( Amer) 95.5 Est GFR (Non-Af Amer) 82.4 BUN/Creatinine Ratio 17.1 (10-20) Glucose 146 H (70-99) mg/dl Calcium 8.3 L (8.5-10.1) mg/dl Total Bilirubin 0.4 (0.2-1) mg/dl AST 30 (15-37) U/L ALT 61 (12-78) U/L Alkaline Phosphatase 70 (45-117) U/L Troponin I < 0.015 (0-0.045) ng/ml Total Protein 7.2 (6.4-8.2) gm/dl Albumin 4.0 (3.4-5.0) gm/dl Globulin 3.2 (2.5-4.0) gm/dl Albumin/Globulin Ratio 1.3 (0.9-2) Lipase 125 (73-393) U/L 03/29/19 Range/Units 10:53 WBC (4.8-10.8) K/uL RBC (4.7-6.1) M/uL Hgb (14.0-18.0) g/dL Hct (42-52) % MCV (80-100) fL MCH (25-34) pg MCHC (32-36) g/dL RDW Std Deviation (36.4-46.3) fL RDW Coeff of Ashish (11.5-14.5) % Plt Count (130-400) K/uL MPV (7.4-10.4) fL Immature Gran % (Auto) % Neut % (Auto) % Lymph % (Auto) % [place] % (Auto) % Eos % (Auto) % Baso % (Auto) % Immature Gran # (Auto) (0.00-0.02) K/uL Neut # (Auto) (1.4-6.5) K/uL Lymph # (Auto) (1.2-3.4) K/uL [place] # (Auto) (0.11-0.59) K/uL Eos # (Auto) (0-0.5) K/uL Baso # (Auto) (0-0.2) K/uL PT 10.5 (9.0-12.0) Seconds INR 1.0 (0.9-1.1) D-Dimer (0-500) ug/L FEU Sodium (136-145) mmol/L Potassium (3.5-5.1) mmol/L Chloride (98-107) mmol/L Carbon Dioxide (21-32) mmol/L Anion Gap (3-11) BUN (7-18) mg/dl Creatinine (0.6-1.4) mg/dl Est Cr Clr Drug Dosing ml/min Est GFR ( Amer) Est GFR (Non-Af Amer) BUN/Creatinine Ratio (10-20) Glucose (70-99) mg/dl Calcium (8.5-10.1) mg/dl Total Bilirubin (0.2-1) mg/dl AST (15-37) U/L ALT (12-78) U/L Alkaline Phosphatase (45-117) U/L Troponin I (0-0.045) ng/ml Total Protein (6.4-8.2) gm/dl Albumin (3.4-5.0) gm/dl Globulin (2.5-4.0) gm/dl Albumin/Globulin Ratio (0.9-2) Lipase (73-393) U/L Imaging Data Radiologist's Impression: Radiology results as stated below per my review and the radiologist's interpretation: XR chest 1V portable CLINICAL HISTORY: Chest Pain pain COMPARISON STUDY: 01/08/2018 FINDINGS: The bones soft tissues and hemidiaphragms are normal. The cardiomediastinal silhouette is normal. The lungs are clear. The pulmonary vasculature is normal. IMPRESSION: Negative chest. The above report was generated using voice recognition software. It may contain grammatical, syntax or spelling errors. Electronically signed by: Kurtis Santos M.D. 03/29/2019 10:49 AM ECG Data Attestation: I personally reviewed and interpreted this ECG as follows: Indication: chest pain Rate (beats per minute): 67 Rhythm: sinus rhythm Findings: + other (Normal axis, poor baseline in inferior leads); no PVC Blood Pressure Blood Pressure Findings: Elevated blood pressure Blood Pressure Disposition: further management by hospitalist ANNA Narrative Patient is a 53-year-old male who presents the ER status post general anesthesia with an LMA for right knee arthroscopy. IV was established blood work was obtained that showed patient was hypertensive. Labs show no significant leukocytosis or anemia. BMP along with LFTs bilirubin was unremarkable. Troponin was negative. Lipase was normal. Chest x-ray was unremarkable without any focal infiltrate. EKG was nondiagnostic. Patient did have chest pain associate with shortness of breath and a heaviness. Uncertain as this could have been secondary to the intubation versus anesthesia versus ACS. D-dimer was inadvertently obtained and was elevated at 900 which I do favor secondary to the procedure. Will not pursue at this time. Did discuss with the hospitalist for observation patient was updated bedside. Impression & Plan Precordial chest pain, HTN (hypertension), Post-operative state Discharge Plan Visit Data *Final* Discharge Date/Time: 03/29/19 13:52 Chief Complaint: Chest Pain Stated Complaint: chest pain, nausea ED Provider: Vern Rodriguez Discharge Problem: Precordial chest pain, HTN (hypertension), Post-operative state Patient Disposition: Admitted As Inpatient Discharge Instructions Interventions: ED Discharge Assessment Last Done: 03/29/19 13:52 The scribe's documentation has been prepared under my direction and personally reviewed by me in its entirety. I confirm that the note above accurately reflects all work, treatment, procedures, and medical decision making performed by me.
--- NOTE | 2019-03-29 16:59 | Orthopedic Consultation ---
Date of Consultation March 29, 2019 Assessment & Plan (1) S/P right knee arthroscopy: Overall, Dejuan is doing well with regards to his right knee. He is not having much pain. He can be weightbearing as tolerated. He can change the dressing after 2 days. He can continue to follow his postoperative knee arthroscopy instructions. I do not think physical therapy is necessary for this visit. He is orthopedically stable for discharge when medically ready. He will follow-up with orthopedics in 2 weeks. Present on Admission?: Yes History of Present Illness Reason for Consultation: Status post right knee arthroscopy Attending Physician: Cr Roldan MD History of Present Illness Dejuan is a pleasant 53-year-old male who underwent a right knee arthroscopy earlier this morning. Unfortunately, postoperatively he was having trouble with hypertension. There was concerns about his cardiac status as well. He was transferred over to the emergency room and then admitted to the PCU for observation.He is currently not having much pain in his knee. He is already been up and ambulating on it. He is relatively asymptomatic. Allergies Allergy/AdvReac Type Severity Reaction Status Date / Time No Known Allergies Allergy Verified 03/29/19 11:19 Home Medications Home Medications Medication Instructions Recorded Confirmed Type ipratropium-albuterol [Combivent 1 puff INHALATION 6XD PRN 03/21/19 03/29/19 History Respimat] labetalol 200 mg PO BID 03/21/19 03/29/19 History multivitamin 1 tab PO DAILY 03/21/19 03/29/19 History sertraline [Zoloft] 200 mg PO QAM 03/21/19 03/29/19 History tramadol [Ultram] 50 mg PO Q6H PRN #30 tab 03/29/19 03/29/19 Rx Patient History Medical History Depression Diverticular disease H/O DIVERTICULITIS PERFORATION Hypertension Pneumonia S/P LAPAROTOMY / BOWEL RESECTION Surgical History Fusion of spine C3-C5. FULL ROM. H/O wrist surgery RIGHT History of appendectomy History of bowel resection History of bronchoscopy History of colonoscopy History of colostomy History of colostomy reversal History of detached retina repair LEFT History of herniorrhaphy open abdominal hernia x8 with mesh. History of total knee replacement LEFT Family History Other No known health problems Social History Preferred Language: Faroese Communication Ability: Effective Team Primary Care Physician Required: No Beliefs That Will Affect Care: None Current Living Situation: Family Feels Safe at Home: Yes Smoking Status: Never smoker Tobacco Type: cigarettes ; Second Hand Exposure: No ; Hx Alcohol Use: Yes Alcohol type: beer Hx Substance Use: No Review of Systems Review of Systems: All systems reviewed & are unremarkable except as noted in HPI & below Physical Exam Musculoskeletal: On physical examination of his right knee, the dressing is clean and dry. He has active motion of his toes and his foot. His legs out in full extension. Results & Data Vital Signs (Past 12 Hours) Vital Signs Temp Pulse Pulse Resp BP BP BP 03/29/19 16:00 84 03/29/19 15:50 36.9 C 80 20 142/77 H 03/29/19 14:12 36.4 C L 78 16 147/92 H 03/29/19 13:50 75 18 148/90 H 03/29/19 12:27 76 17 148/96 H 03/29/19 11:08 76 20 159/98 H 03/29/19 10:33 76 20 147/98 H Pulse Ox 03/29/19 16:00 03/29/19 15:50 97 03/29/19 14:12 96 03/29/19 13:50 95 03/29/19 12:27 95 03/29/19 11:08 93 03/29/19 10:33 96 PG Care Time/CCT Total # of Minutes Spent Total Time Spent with Patient: Total time spent is greater than 50% in coordination of care (as documented) at patient's floor/unit and/or counseling p atient:
[2019-03-29] MEDS ORDERED: SERTRALINE HCL 100 MG TABLET PO ONE (18:06)
[2019-03-29] MEDS: LABETALOL HCL 200 MG TAB PO SCH (20:29)
[2019-03-30] MEDS: OXYCODONE/ACETAMINOPHEN 5mg/325mg TAB PO PRN ×2 (05:14→09:16)
[2019-03-30 05:33] LABS: Basophils # (auto) 0.02 K/uL (0-0.2); Basophils % (auto) 0.3 %; Eosinophils # (auto) 0.07 K/uL (0-0.5); Eosinophils % (auto) 0.9 %; Hematocrit (blood only) 41.3 % (42-52); Hemoglobin 14.4 g/dL (14.0-18.0); Immature Granulocytes # (auto) 0.02 K/uL (0.00-0.02); Immature Granulocytes % (auto) 0.3 %; Lymphocytes # (auto) 1.43 K/uL (1.2-3.4); Lymphocytes % (auto) 18.7 %; Mean Corpuscular Hgb Conc 34.9 g/dL (32-36); Mean Corpuscular Volume 87.9 fL (80-100); Mean Platelet Volume 8.3 fL (7.4-10.4); Monocytes # (auto) 0.68 K/uL (0.11-0.59); Monocytes % (auto) 8.9 %; Neutrophils # (auto) 5.43 K/uL (1.4-6.5); Neutrophils % (auto) 70.9 %; Platelet Count 174 K/uL (130-400); RDW Coefficient of Variation 13.2 % (11.5-14.5); RDW Standard Deviation 42.7 fL (36.4-46.3); White Blood Count 7.65 K/uL (4.8-10.8)
[2019-03-30 05:50] LABS: Albumin Level 3.6 gm/dl (3.4-5.0); BUN Creatinine Ratio 20.3 (10-20); Calcium 8.1 mg/dl (8.5-10.1); Creatinine Clr Calc Pharmacy 115.6 ml/min; Est GFR (African American) 105.4; Est GFR (Non-African American) 90.9; Potassium 3.7 mmol/L (3.5-5.1)
[2019-03-30 05:53] LABS: Albumin Globulin Ratio 1.2 (0.9-2); Bilirubin,Total 0.4 mg/dl (0.2-1); Globulin 2.9 gm/dl (2.5-4.0); Total Protein 6.5 gm/dl (6.4-8.2)
[2019-03-30 06:19] LABS: Estimated Average Glucose 128 mg/dl; Hemoglobin A1C 6.1 % (4.5-5.6)
[2019-03-30] MEDS: ASPIRIN 81 MG ECTAB PO SCH (08:20)
[2019-03-30] MEDS ORDERED: MULTIVITAMIN TAB PO SCH (09:00)
[2019-03-30] MEDS ORDERED: SERTRALINE HCL 100 MG TABLET PO SCH (09:00)
[2019-03-30] MEDS: LABETALOL HCL 200 MG TAB PO SCH (09:17)
--- NOTE | 2019-03-30 10:24 | Cardiology Consultation ---
Date of Consultation March 30, 2019 Assessment & Plan (1) Chest pain: The patient's description of chest discomfort is atypical for classic angina pectoris. Fortunately, there were no EKG changes and his troponin levels have been undetectable. He has been ambulatory without difficulty. We could consider an outpatient stress test once he has recovered from his surgery. (2) Hypertensive urgency: The patient's blood pressure has improved over recordings at time of presentation. Could increase labetalol to 300 mg b.i.d.. (3) LVH (left ventricular hypertrophy): Moderate left ventricle hypertrophy noted on echocardiogram performed yesterday. We will continue to follow as an outpatient. History of Present Illness Attending Physician: Cr Rodlan MD History of Present Illness Mr. Jefferson is a 53-year-old male admitted yesterday with hypertensive urgency chest pain syndrome. Of note, patient typically follows with Dr. Medellin. The patient underwent arthroscopic surgery of his right knee yesterday with Dr. Anderson in the surgery center. As the patient awoke, he noticed a right-sided chest discomfort, anxiety, and mild shortness of breath. The patient was transferred to the emergency room for further care. Total duration of the patient's discomfort was approximately 20 minutes. His discomfort resolved after he was given for baby strength aspirin, and a dose of intravenous hydralazine. His blood pressure also improved with that intervention. The patient has never experienced exertional chest discomfort or limiting dyspnea. He further denies syncope, presyncope, PND, orthopnea, palpitations, lower extremity edema, and claudication. The patient has a longstanding history of hypertension and left ventricular hypertrophy. His blood pressure has been adequately controlled on labetalol 200 mg b.i.d.. The patient is currently as suffering from a COPD flare. Currently, patient is resting comfortably in bed without complaints. Has been ambulatory without chest discomfort. Past medical and surgical history 1. Hypertension 2. Left ventricle hypertrophy 3. Asthma/COPD 4. GERD 5. Ventral hernia repair 6. Ruptured diverticulum, colostomy 7. Appendectomy 8. Cervical spinal fusion 9. Left TKR-2017 Social history Single, lives alone Social alcohol Quit tobacco use over 10 years ago Family history Mother 76 but developed coronary disease in her 60s. Father at age 60 from gastric carcinoma Siblings are alive and well Review of systems A 10 point review of systems was undertaken and negative except for that described above. Allergies Allergy/AdvReac Type Severity Reaction Status Date / Time No Known Allergies Allergy Verified 03/29/19 11:19 Home Medications Home Medications Medication Instructions Recorded Confirmed Type ipratropium-albuterol [Combivent 1 puff INHALATION 6XD PRN 03/21/19 03/29/19 History Respimat] labetalol 200 mg PO BID 03/21/19 03/29/19 History multivitamin 1 tab PO DAILY 03/21/19 03/29/19 History sertraline [Zoloft] 200 mg PO QAM 03/21/19 03/29/19 History tramadol [Ultram] 50 mg PO Q6H PRN #30 tab 03/29/19 03/29/19 Rx Patient History Medical History Depression Diverticular disease H/O DIVERTICULITIS PERFORATION Hypertension Pneumonia S/P LAPAROTOMY / BOWEL RESECTION Surgical History Fusion of spine C3-C5. FULL ROM. H/O wrist surgery RIGHT History of appendectomy History of bowel resection History of bronchoscopy History of colonoscopy History of colostomy History of colostomy reversal History of detached retina repair LEFT History of herniorrhaphy open abdominal hernia x8 with mesh. History of total knee replacement LEFT Family History Other No known health problems Social History Preferred Language: Ethiopian Communication Ability: Effective Redrawer Required: No Beliefs That Will Affect Care: None Current Living Situation: Family Feels Safe at Home: Yes Smoking Status: Never smoker Tobacco Type: cigarettes ; Second Hand Exposure: No ; Hx Alcohol Use: Yes Alcohol type: beer Hx Substance Use: No Physical Exam Physical Exam: In general this is a well-developed well-nourished white male in no acute distress. HEENT exam is negative. Neck is supple with full carotid upstrokes. There are no carotid bruits. Jugular venous pressure is flat at 90. There is no thyromegaly. Cardiovascular exam reveals a regular rhythm with a normal S1 and S2. No S3, S4, or murmurs are noted. Lungs are clear without rales, rhonchi, or wheezes. Abdomen is soft and nontender without bruits. Extremities reveal intact radial artery and posterior tibial pulses bilaterally. Right knee is dressed. Results & Data Vital Signs (Past 12 Hours) Vital Signs Temp Pulse Pulse Resp BP Pulse Ox 03/30/19 07:46 36.6 C 68 19 158/93 H 97 03/30/19 03:35 36.6 C 79 18 143/79 H 97 03/29/19 23:17 36.5 C 80 18 143/78 H 97 03/29/19 23:15 87 Laboratory Results [facility] notes hemoglobin of 14.4, hematocrit 41.3, white count 7.6, platelet count [id number]. Electrolytes noted a sodium of 139, potassium 3.7, chloride 107, bicarb 24, BUN 20, creatinine 0.94, glucose of 111. Three separate troponins are undetectable less than 0.015. Diagnostic Findings EKGs all notes sinus rhythm with no abnormalities. Chest x-ray shows no acute disease. Echocardiogram noted hyperdynamic left ventricular systolic function without wall motion abnormalities. Left ventricular ejection fraction was greater than 70%. There was moderate left hypertrophy most pronounced at the proximal septum. No valvular pathology. lunchroom monitor is benign. PG Care Time/CCT Total # of Minutes Spent Total Time Spent with Patient: Total time spent is greater than 50% in coordination of care (as documented) at patient's floor/unit and/or counseling patient:
--- NOTE | 2019-03-30 12:54 | Hospitalist Progress Note ---
Date of Service March 30, 2019 Assessment & Plan (1) Hypertensive urgency: D/c home today per request. Feeling bored and reports no chest pain. PCU on telemetry Vital signs every 4 hours Troponin every 6 hours with EKGs to rule out acute coronary syndrome-all negative Lipid panel- wnl A1c -6.1 CBC CMP BMP wnl Replenish electrolytes as needed DVT prophylaxis Lovenox 40 SC daily Started aspirin 81 daily Hydralazine 10 mg p.o. 3 times daily as needed for blood pressure higher than 160/90 Continue ipratropium albuterol 1 puff every 6 hours as needed for sob Echocardiogram : Moderate left ventricular hypertrophy noted on electrocardiogram yesterday. Patient with follow-up with Dr. Mario as an outpatient. Cardiology consult: Appreciate Dr. Mario recommendations- (1) Chest pain: The patient's description of chest discomfort is atypical for classic angina pectoris. Fortunately, there were no EKG changes and his troponin levels have been undetectable. He has been ambulatory without difficulty. We could consider an outpatient stress test once he has recovered from his surgery. (2) Hypertensive urgency: The patient's blood pressure has improved over recordings at time of presentation. Could increase labetalol to 300 mg b.i.d.. (3) LVH (left ventricular hypertrophy): Moderate left ventricle hypertrophy noted on echocardiogram performed yesterday. We will continue to follow as an outpatient. Percocet 10 mg 325 every 4 hours as needed for severe pain pain management. Hold opiates if respiratory rate less than 12. Given prescription for 3 days until he sees his primary care physician every 8 hours. Toradol 30 mg IV every 6 hours as needed for moderate pain Tramadol 50 mg p.o. every 6 hours as needed for moderate pain pain. Full code (2) Chest pain: As the above (3) History of meniscectomy of right knee: Follow-up with orthopedics Dr. Joey Anderson Subjective Patient seen and examined this bedside. Reports no chest pain. Troponin negative. Patient was seen by Dr. Mario cardiology and he will continue to follow-up with him as an outpatient. P.o. intake good. Pain well controlled. Patient said he wants to be discharged home. Patient denies fever chills chest pain near syncope syncope, abdominal pain frequency urgency hematuria hemoptysis melena dysuria nausea or vomiting. Review of Systems Review of Systems: All systems reviewed & are unremarkable except as noted in HPI & below Physical Exam Constitutional: WD/WN, vitals as above well developed and + obese Eyes: PERRL, conjunctivae normal, anicteric sclerae ENMT: external ear and nose normal, oropharynx normal Neck: trachea midline, no thyromegaly Respiratory: normal respiratory effort, lungs clear to auscultation Cardiovascular: RRR, no murmur, no edema Chest (Breasts): normal inspection/palpation of breasts Gastrointestinal (Abdomen): normal bowel sounds, soft, nontender, no hepatosplenomegaly Skin: no rashes, warm and dry Neurologic: patellar DTR's 2+ bilat, sensation intact Psychiatric: A+Ox3, euthymic affect Genitourinary: no testicular masses, no penis abnormality Lymphatic: no cervical or axillary lymphadenopathy Results & Data Vital Signs (Past 12 Hours) Vital Signs Temp Pulse Resp BP Pulse Ox 03/30/19 11:25 37.0 C 71 18 161/92 H 94 03/30/19 10:24 135/85 03/30/19 07:46 36.6 C 68 19 158/93 H 97 03/30/19 03:35 36.6 C 79 18 143/79 H 97 PG Care Time/CCT Total # of Minutes Spent Total Time Spent with Patient: Total time spent is greater than 50% in coordination of care (as documented) at patient's floor/unit and/or counseling patient:
--- NOTE | 2019-03-30 18:51 | Discharge Summary ---
Date of Service March 30, 2019 Admission HPI Per Admitting Provider Patient is a 53 years old male with past medical history of hypertension cervical radiculopathy, osteoarthritis , ventral hernia who was brought from OR this morning with right knee partial medial meniscectomy chondroplasty and extensive synovectomy under general anesthesia by Dr. Joey Anderson, DO orthopedic. After procedure was done and patient wake up from anesthesia started to have left-sided chest pain with sweating. Patient's blood pressure was also elevated, the high is being 180/108 and improved with labetalol and hydralazine IV. Patient was then brought to the emergency room for further evaluation and treatment. Chest pain subsided once when patient arrived to the emergency room he was given aspirin 324 p.o. and patient condition in general improved. Were reviewed white blood cell count 5.72, hemoglobin 15.4, hematocrit 45.2 platelets 185, 139, chloride 107, anion gap 7, BUN creatinine 1.02, GFR 8.2 BUN/creatinine ratio 117.1 glucose 146 calcium 8.3, troponin 0.015. Chest x-ray negative chest, lungs. EKG normal sinus rhythm EKG shows NSR with normal intervals, normal QRS complexes, no ST elevation or depression, and no arrhythmias. When compared to March 29, 2019. Ventricular rate 67, no ST segment elevation or depression. Decision was made to admit patient for observation on telemetry at PCU Admission Exam (Per Admitting) Constitutional WD/WN, vitals as above well developed and + obese Eyes PERRL, conjunctivae normal, anicteric sclerae ENMT external ear and nose normal, oropharynx normal Neck trachea midline, no thyromegaly Respiratory normal respiratory effort, lungs clear to auscultation Cardiovascular RRR, no murmur, no edema Chest (Breasts) normal inspection/palpation of breasts Gastrointestinal (Abdomen) normal bowel sounds, soft, nontender, no hepatosplenomegaly Skin no rashes, warm and dry Neurologic patellar DTR's 2+ bilat, sensation intact Psychiatric A+Ox3, euthymic affect Genitourinary no testicular masses, no penis abnormality Lymphatic no cervical or axillary lymphadenopathy Discharge Data Consultations 03/29/19 14:12 Consult General Surgery Routine 03/29/19 17:12 Consult Cardiology Routine Hospital Course (1) Hypertensive urgency: D/c home today per request. Feeling bored and reports no chest pain. PCU on telemetry Vital signs every 4 hours Troponin every 6 hours with EKGs to rule out acute coronary syndrome-all negative Lipid panel- wnl A1c -6.1 CBC CMP BMP wnl Replenish electrolytes as needed DVT prophylaxis Lovenox 40 SC daily Started aspirin 81 daily Hydralazine 10 mg p.o. 3 times daily as needed for blood pressure higher than 160/90 Continue ipratropium albuterol 1 puff every 6 hours as needed for sob Echocardiogram : Moderate left ventricular hypertrophy noted on electrocardiogram yesterday. Patient with follow-up with Dr. Mario as an outpatient. Cardiology consult: Appreciate Dr. Mario recommendations- (1) Chest pain: The patient's description of chest discomfort is atypical for classic angina pectoris. Fortunately, there were no EKG changes and his troponin levels have been undetectable. He has been ambulatory without difficulty. We could consider an outpatient stress test once he has recovered from his surgery. (2) Hypertensive urgency: The patient's blood pressure has improved over recordings at time of presentation. Could increase labetalol to 300 mg b.i.d.. (3) LVH (left ventricular hypertrophy): Moderate left ventricle hypertrophy noted on echocardiogram performed yesterday. We will continue to follow as an outpatient. Percocet 10 mg 325 every 4 hours as needed for severe pain pain management. Hold opiates if respiratory rate less than 12. Given prescription for 3 days until he sees his primary care physician every 8 hours. Toradol 30 mg IV every 6 hours as needed for moderate pain Tramadol 50 mg p.o. every 6 hours as needed for moderate pain pain. Full code (2) Chest pain: As the above (3) History of meniscectomy of right knee: Follow-up with orthopedics Dr. Joey Anderson
[2019-03-30] MEDS ORDERED: ENOXAPARIN INJ 40 MG/0.4 ML SYR SQ SCH (21:00)
== END 2019-03-30 14:39 | disposition home or self-care (01) ==
LOC: ED 10:27 → 2S 10:27
DX: K21.9 Gastro-esophageal reflux disease without esophagitis; M19.90 Unspecified osteoarthritis, unspecified site; Z98.890 Other specified postprocedural states; I51.7 Cardiomegaly; F32.9 Major depressive disorder, single episode, unspecified; I16.0 Hypertensive urgency; J45.909 Unspecified asthma, uncomplicated; J44.9 Chronic obstructive pulmonary disease, unspecified; R07.9 Chest pain, unspecified

== ENCOUNTER 2019-09-11 09:21 | Inpatient (IN) ==
--- NOTE | 2019-08-28 15:49 | PAT Medication Instructions ---
Medication Instructions Date of Service August 28, 2019 Home Medications Medication Instructions Recorded tramadol 50 mg tablet 50 mg PO TID PRN #30 tab 08/22/19 Combivent Respimat 1 puff INHALATION 6XD PRN labetalol 200 mg PO QAM sertraline 200 mg PO QAM multivitamin 1 cap PO QAM tramadol 50 mg tablet 50 mg PO TID PRN DO NOT take the morning of surgery multivitamin 1 cap PO QAM Take morning of surgery With a small sip of water, OTHERWISE NOTHING TO EAT OR DRINK AFTER MIDNIGHT: Combivent Respimat 1 puff INHALATION 6XD PRN (if needed) labetalol 200 mg PO QAM sertraline 200 mg PO QAM tramadol 50 mg tablet 50 mg PO TID PRN (if needed, may be taken up to four hours before surgery) Other Notes If you have any questions please call us at [phone] or [phone] or [phone] or [phone]
--- NOTE | 2019-08-29 10:43 | Anesthesiology Consultation ---
Date of Service August 29, 2019 Assessment & Plan (1) Encounter for pre-operative examination: S/P L TKA 2018 -- SAB +regional x 1 attempt, no issues on record. Chart Review Chart Review: Acceptable Risk for Surgery (pending pre op labs) and Patient seen in Pre Admission Testing Teaching & Discussion Instructed NPO after midnight before surgery, except medications with 15 cc of water. Medication instructions provided according to the PAT guidelines. History Surgery Operation Date: 09/11/19 07:30 Proposed Procedures p Right Total Knee Arthroplasty - Joey Anderson DO Height/Weight Height: 6 ft 1 in Weight: 106.7 kg Allergies Allergy/AdvReac Type Severity Reaction Status Date / Time No Known Allergies Allergy Verified 08/29/19 09:35 Medications Home Medications Medication Instructions Recorded Confirmed Last Taken Combivent Respimat 1 puff INHALATION 6XD PRN 03/21/19 08/29/19 03/28/19 labetalol 200 mg PO QAM 06/03/19 08/29/19 06/02/19 sertraline 200 mg PO QAM 06/03/19 08/29/19 06/02/19 multivitamin 1 cap PO QAM 08/22/19 08/29/19 Unknown tramadol 50 mg tablet 50 mg PO TID PRN #30 tab 08/22/19 08/29/19 Unknown Past Medical History Medical History Asthma Depression Diverticular disease hx diverticular perforation s/p bowel resection/colostomy/colostomy reversal History of pneumonia Many years ago, was in hospital for bowel perforation and developed HAP. Hypertension Exercise / Class Metabolic Activity II 4-5 Yardwork/Stairs/Walk up hill (Denies CP or SOB with 1 FOS) Past Family History Family History Other No known health problems Past Surgical History Surgical History Fusion of spine C3-C5 "FULL ROM" H/O wrist surgery RIGHT History of appendectomy History of arthroscopy right knee arthroscopy: 03/29/19: LMA#5 History of bowel resection With colostomy, for bowel perforation. History of bronchoscopy History of colonoscopy History of colostomy History of colostomy reversal History of detached retina repair LEFT History of herniorrhaphy open abdominal hernia x8 with mesh. History of total knee replacement LEFT; 01/06/18 [facility] -- SAB + regional block both x 1 attempt Past Anesthesia History No Family Hx of Anesthesia Complications KNEE ARTHROSCOPY 03/29/19 (Phillip Silverio) "The patient is a 53 y/o make with a history of HTN who is s/p R knee arthroscopy with Dr. Anderson today. The patinet was placed under GA with LMA for the procedure. He did well intraoperatively with no issues. In recovery while emerging from anesthesia he began complaining of chest pressure associated with shortness of breath and nausea/vomiting. He stated that he never had pain like this in the past. His BP was elevated to 150s-160/110 HR 70s. The patient was given 10mg IV labetalol and 10mg IV Hydralazine as well as additional IV pain medication. A 12 lead EKG showed sinus bradycardia with no ischemic changes. The patient's chest pain resolved on its own within [address] Ward since the patient sees Dr. Medellin usually and I was not able to get a hold of him. He stated that it would be appropriate for the patient to be transferred to the hospital for an ischemic evaluation The patient was agreeable. The patient was transferred to the ED via EMS. A full report was given to the ER charge nurse. The patient felt well on transfer with no complaints. Ischemic workup was NEGATIVE. History of PONV No Hx of Motion Sickness and History of PONV (WITH KNEE SCOPE 2018 [facility] [place]) Social History Smoking Status: Never smoker tobacco type: cigarettes Do You Dip or Chew Tobacco: No Smoking End Date: 11 YR AGO Hx Alcohol Use: Yes Alcohol type: beer alcohol intake frequency: a few times a week Hx Substance Use: No substance use type: does not use Review of Systems Pt denies any recent chest pain, shortness of breath, palpitations, cough, fever or URI. Physical Exam Vital Signs BP: 130/78 P: 64bpm SPO2: 95% RA T: 98.1 F R: 16 ENMT Mouth: + dentures (partial upper), + dental restorations (one gold cap L molar) and + chipped teeth (front upper incisors); no loose teeth Thyromental Distance: > or= 3.5 Finger Breadths (4) Mallampati Class: I Neck normal visual inspection; neck extension not limited Respiratory normal respiratory effort Auscultation: lungs clear to auscultation bilaterally Cardiovascular Rate/Rhythm: regular rate and regular rhythm Heart Sounds: no murmur Vessels: no carotid bruit Testing Electrocardiogram Date: 03/29/19 Findings: + NSR @ (70) Chest X-Ray Date: 03/29/19 Findings: + NAD Echocardiogram Date: 03/29/19 EF: >70% Normal LV size with hyperdynamic systolic function. No regional wall motion abnormalities. Severe hypertrophy involving the anterior septum, otherwise moderate concentric LVH. No significant valvular abnormalities visualized. Normal estimated RVSP. No prior study available for comparison. Stress Test Date: 07/05/19 Type: DSE Negative dobutamine stress echo for myocardial ischemia at 72% MPHR. The baseline echo notes normal LV function.
[2019-08-29 12:34] LABS: Basophils # (auto) 0.06 K/uL (0-0.2); Basophils % (auto) 0.8 %; Eosinophils # (auto) 0.28 K/uL (0-0.5); Eosinophils % (auto) 3.5 %; Hematocrit (blood only) 44.9 % (42-52); Hemoglobin 15.4 g/dL (14.0-18.0); Immature Granulocytes # (auto) 0.04 K/uL (0.00-0.02); Immature Granulocytes % (auto) 0.5 %; Lymphocytes # (auto) 1.64 K/uL (1.2-3.4); Lymphocytes % (auto) 20.6 %; Mean Corpuscular Hgb Conc 34.3 g/dL (32-36); Mean Corpuscular Volume 90.5 fL (80-100); Mean Platelet Volume 9.5 fL (7.4-10.4); Monocytes # (auto) 0.51 K/uL (0.11-0.59); Monocytes % (auto) 6.4 %; Neutrophils # (auto) 5.42 K/uL (1.4-6.5); Neutrophils % (auto) 68.2 %; Platelet Count 245 K/uL (130-400); RDW Coefficient of Variation 13.7 % (11.5-14.5); RDW Standard Deviation 44.9 fL (36.4-46.3); Red Blood Count 4.96 M/uL (4.7-6.1); White Blood Count 7.95 K/uL (4.8-10.8)
[2019-08-29 12:45] LABS: BUN Creatinine Ratio 11.5 (10-20); Creatinine Clr Calc Pharmacy 117.6 ml/min; Est GFR (African American) 109.6; Est GFR (Non-African American) 94.5; Potassium 4.2 mmol/L (3.5-5.1)
[2019-08-29 12:51] LABS: Partial Thromboplastin Time 26.4 Seconds (21.0-31.0); Prothrombin Time 10.6 Seconds (9.0-12.0)
--- NOTE | 2019-09-10 07:41 | History & Physical Report ---
Date of Service September 10, 2019 Assessment & Plan (1) Osteoarthritis of right knee: We will proceed with a right total knee arthroplasty. Postoperatively he will be started on aspirin for DVT prophylaxis and kept overnight in the hospital for postoperative medical management. [facility] plans [facility] upon discharge. Present on Admission?: Yes History of Present Illness Chief Complaint: Primary osteoarthritis of the right knee Primary Care Provider: Ismael Eddy MD Sang is a pleasant 53-year-old male who is been dealing with chronic increasing right knee pain. X-rays and clinical examination have been diagnostic for osteoarthritis of the right knee. I did do a knee arthroscopy on him about 6 months ago. Unfortunately, that did not take care of his pain. The arthroscopy images did show advanced arthritis of the right knee. He has a history of a left total knee arthroplasty done in December 2017. He has done well with that. After failing extensive conservative treatment with his right knee, he has elected to proceed with a right total knee arthroplasty. Allergies Allergy/AdvReac Type Severity Reaction Status Date / Time No Known Allergies Allergy Verified 08/29/19 09:35 Home Medications Home Medications Medication Instructions Recorded Confirmed Type Combivent Respimat 1 puff INHALATION 6XD PRN 03/21/19 08/29/19 History labetalol 200 mg PO QAM 06/03/19 08/29/19 History sertraline 200 mg PO QAM 06/03/19 08/29/19 History multivitamin 1 cap PO QAM 08/22/19 08/29/19 History tramadol 50 mg tablet 50 mg PO TID PRN #30 tab 08/22/19 08/29/19 Rx Past Med/Surg History Medical History Asthma Depression Diverticular disease hx diverticular perforation s/p bowel resection/colostomy/colostomy reversal History of pneumonia Many years ago, was in hospital for bowel perforation and developed HAP. Hypertension Surgical History Fusion of spine C3-C5 "FULL ROM" H/O wrist surgery RIGHT History of appendectomy History of arthroscopy right knee arthroscopy: 03/29/19: LMA#5 History of bowel resection With colostomy, for bowel perforation. History of bronchoscopy History of colonoscopy History of colostomy History of colostomy reversal History of detached retina repair LEFT History of herniorrhaphy open abdominal hernia x8 with mesh. History of total knee replacement LEFT; 01/06/18 [facility] -- SAB + regional block both x 1 attempt Family History Other No known health problems Social History Preferred Language: Togolese Communication Ability: Effective Mathematics Technician Required: No Beliefs That Will Affect Care: None Current Living Situation: Family Feels Safe at Home: No Is there a partner from a previous relationship who is making you feel unsafe now?: No Smoking Status: Never smoker Tobacco Type: cigarettes ; Second Hand Exposure: No ; Hx Alcohol Use: Yes Alcohol type: beer Hx Substance Use: No Review of Systems All systems reviewed & are unremarkable except as noted in HPI & below Physical Exam Constitutional: WD/WN, vitals as above Eyes: PERRL, conjunctivae normal, anicteric sclerae ENMT: external ear and nose normal, oropharynx normal Neck: trachea midline, no thyromegaly Respiratory: normal respiratory effort Cardiovascular: RRR, no murmur, no edema Gastrointestinal (Abdomen): normal bowel sounds, soft, nontender, no hepatosplenomegaly Musculoskeletal: On physical examination of the right knee there is a trace effusion. There is near full range of motion and no evidence of instability. There is significant tenderness palpation along the medial and lateral joint lines and over the distal femoral condyles. Psychiatric: A+Ox3, euthymic affect Results & Data Diagnostic Findings Radiographs of the right knee demonstrate advanced osteoarthritis with joint space narrowing osteophyte formation and [id number] articulation.
[~2019-09-11 09:21] MED LIST changes: +ACETAMINOPHEN 500 MG TAB PO SCH; -B-CO1CAP3 PO; +BUPIVACAINE 0.5 % 5 MG/1 ML PF 10ML VIAL ONE; +CEFAZOLIN 2000MG 2,000 MG/15 ML SYR IV SCH; -DVN80 PO; +EPINEPHrine INJ 1 MG/ML AMP ONE; +FAMOTIDINE 20 MG TAB PO SCH; +GABAPENTIN 600 MG DOSE PO SCH; -IPRA1AER2 INH; -LBT/100 PO; +LR 500ML BOLUS, THEN 15ML/HR IV SCH; +LR 60ML/HR IV SCH; -MULT-506 PO; +ROPIVACAINE 0.5% 5 MG/ML 30 ML VIAL ONE; +ROPIVACAINE 0.5% HCL/PF 150 MG, BUPIVACAINE 0.5% MPF 30 ML, EPINEPHrine 30MG/30ML (OR U... INFIL SCH; -SERT-234 PO; -SYMIN160 INFIL; +TRANEXAMIC ACID 1,000 MG **IV Intra-op IV SCH; +TRANEXAMIC ACID 1,000 MG **IV Pre-op IV SCH; +dexAMETHasone 4 MG TAB PO SCH
[2019-09-11] MEDS ORDERED: ONDANSETRON INJ 2 MG/ML 2 ML VIAL IV PRN ×2 (10:07→14:55)
[2019-09-11] MEDS ORDERED: ATROPINE SULFATE 0.1 MG/ML 10ML SYR IV PRN (10:07)
[2019-09-11] MEDS ORDERED: ePHEDrine sulfate 50 MG/ML AMP IV PRN (10:07)
[2019-09-11] MEDS ORDERED: fentaNYL citrate 100 MCG/2 ML VIAL IV PRN (10:07)
[2019-09-11] MEDS ORDERED: MIDAZOLAM HCL 1 MG/ML 2ML VIAL ONE (10:50)
[2019-09-11] MEDS ORDERED: PROPOFOL IV EMULSION 10 MG/ML 20 ML VIAL IV ONE ×4 (10:50→12:59)
[2019-09-11] MEDS ORDERED: PHENYLEPHRINE 100MCG/ML 5ML SYR ONE (10:50)
[2019-09-11] MEDS ORDERED: LIDOCAINE HCL 2% 2 ML VIAL/AMP(20MG/ML) INFIL ONE (10:50)
[2019-09-11] MEDS ORDERED: fentaNYL citrate 100 MCG/2 ML VIAL ONE (10:50)
[2019-09-11] MEDS ORDERED: ePHEDrine sulfate 50 MG/ML SYR ONE (10:50)
[2019-09-11] MEDS ORDERED: BACITRACIN INJ 50,000 UNIT VIAL ONE (11:06)
[2019-09-11] MEDS ORDERED: ORTHO JOINT ANESTHETIC ONE (11:06)
--- NOTE | 2019-09-11 11:40 | History & Physical Bridge Note ---
Date of Service September 11, 2019 History & Physical Bridge Note I have examined the patient, reviewed the History & Physical and in the interval since the performance of the History & Physical I have noted the following changes of clinical significance: no changes noted
--- NOTE | 2019-09-11 13:40 | Operative Report ---
PG Post Operative Report Pre & Post Diagnosis Operation Date: 09/11/19 11:30 Pre-Op Diagnosis: Right Knee Degenerative Joint Disease Post-Op Diagnosis: Right Knee Degenerative Joint Disease I identified the patient and participated in the time-out.: Yes Procedure Operation Date: 09/11/19 11:30 Actual Procedures p Right Total Knee Arthroplasty(Right) - Joey Anderson DO Surgeon Joey Anderson, Perinatal Breastfeeding Assistant Joey Gold PAC Estimated Blood Loss 20 Findings Consistent with Post-Op Diagnosis Specimens Right femoral and tibial bone Complications none Disposition Disposition: Recovery Room Indications Sang is a pleasant 53-year-old male who presented my office with chronic increasing right knee pain. We did a knee arthroscopy on him several months ago. Unfortunately that has not worked. He still is a lot of pain. He has advanced arthritis of his right knee. After failing conservative treatment, he has elected proceed with a right total knee arthroplasty. Description of Procedure Implants used: I used a [employer] Vanguard total knee arthroplasty system with a size 72.5 femur, 79 tibia, 31 patella, and a size 12 PS polyethylene bearing. All components were cemented in place with Palacos G cement. The patient arrived [facility] for the above procedure. There were seen in the preoperative holding area and the operative extremity was identified and signed. There were given a preoperative antibiotic, a spinal anesthetic and an adductor nerve block. There were taken back to the operating room and laid on the table in supine position. There were given basic sedation. The operative knee was then prepped and draped in sterile fashion. A timeout was done, and the patient and the operative extremity was properly identified. A midline incision was made directly over the patella. Dissection was taken down to the extensor mechanism. A subvastus arthrotomy was used. The medial retinaculum was released and the fat pad was mostly left intact. The knee was flexed and the ACL, PCL, and meniscus were removed. A drill was sent down the center of the femoral canal followed by an intramedullary mahsa. Off that mahsa a distal femoral cutting block was placed. 9 mm was resected off the distal femur at 5 of valgus. A posterior referencing AP sizing guide was then placed on the distal femur. The femur measured to be a size 72.5. 2 drill holes were placed in 3 of external rotation. A 4-in-1 cutting block was then impacted into place. Anterior posterior and chamfer cuts were then made. The posterior stabilizing box guide was then impacted into place and the box was resected for the posterior stabilizing component. The proximal tibia was then exposed. A drill was sent down the center of the tibial canal followed by an intramedullary mahsa. Off that mahsa a proximal tibial resection guide was placed. The proximal tibia was then resected. The tibia measured to be a size 79. The tibial plate was then placed in the appropriate rotation and the tibia was punched. The posterior aspect of the knee was then opened up and any additional meniscus fragments and osteophytes were removed. Trial components were then placed. I used a size 12 PS polyethylene insert. The knee was brought through a full range of motion and felt to be stable. The patella was then everted and 8 mm was resected off the posterior aspect of the patella. The patella measured to be a size 31. 3 peg holes were then drilled. A trial patella was placed. The knee was once again brought through a full range of motion and felt to be stable. Trial components were then removed. The surrounding soft tissues were injected with 100 cc of an orthopedic pain control cocktail. All components were then cemented into place with Palacos G cement. The final polyethylene insert was then snapped into place and the anterior bar was locked. Once cement was dry the tourniquet was deflated. Hemostasis was obtained. A dilute betadyne lavage was then done for 3 minutes. The joint was then irrigated with normal saline solution. The subvastus arthrotomy was then closed with #1 Vicryl suture. The skin was closed with 2-0 Vicryl, 3-0V lock suture, and fabiola. A soft compressive dressing was placed. The patient was then transferred to a hospital bed and taken to the postanesthesia care unit in stable condition. They tolerated the procedure well. I attest to the content of the Intraoperative Record and any orders documented therein. Any exceptions are noted below.
--- NOTE | 2019-09-11 13:57 | XRay Report ---
XR knee RT 1 or 2V routine HISTORY: 53 years-old Male Surgical Post Op right knee total joint arthroplasty COMPARISON: Right knee radiographs 11/15/2018 TECHNIQUE: 2 views the right knee FINDINGS: Right knee total joint arthroplasty and patella resurfacing. Anterior midline skin fabiola are noted along with expected postsurgical soft tissue swelling and deep tissue air. Surgical drainage catheter is noted. No acute fracture, malalignment or opaque foreign body. IMPRESSION: Satisfactory alignment of the right knee total joint arthroplasty with expected postopera tive findings. ACT 112: Negative or not required by law. The above report was generated using voice recognition software. It may contain grammatical, syntax o r spelling errors. Electronically signed by: Wang Means M.D. 09/11/2019 1:55 PM
--- NOTE | 2019-09-11 14:12 | Anesthesiology Progress Note ---
Date of Service September 11, 2019 Anesthesia Post Procedure Vital Signs Vital Signs: Temp Pulse Pulse Resp BP Pulse Ox 09/11/19 14:05 65 22 119/86 97 09/11/19 13:55 61 18 125/89 97 09/11/19 13:45 62 16 119/84 95 09/11/19 13:36 36.3 C L 69 16 113/82 95 09/11/19 09:54 36.6 C 67 20 96 Pain Intensity Right Knee: Pain Intensity: 8 Transfer of Care Handoff Completed per policy Notes Mental Status: alert / awake / arousable Patient Amnestic to Procedure: Yes Nausea / Vomiting: adequately controlled Pain: adequately controlled Airway Patency, RR, SpO2: stable & adequate BP & HR: stable & adequate Hydration State: stable & adequate Neuraxial Anesthesia: was administered and sensory block is resolving Anesthetic Complications: no major complications apparent and Pt Satisfied with anesthetic care
[2019-09-11] MEDS ORDERED: NALOXONE HCL 0.4 MG/1 ML VIAL/CARP IV PRN (14:55)
[2019-09-11] MEDS ORDERED: IPRATROPIUM BROMIDE/ALBUTEROL respimat INH INH PRN (14:55)
[2019-09-11] MEDS ORDERED: MAGNESIUM HYDROXIDE SUSP 30 ML UDC PO PRN (14:55)
[2019-09-11] MEDS ORDERED: bisacodyL 10 MG SUPP PR PRN (14:55)
[2019-09-11] MEDS ORDERED: METOCLOPRAMIDE HCL INJ 5 MG/ML 2 ML VIAL IV PRN (14:55)
[2019-09-11] MEDS ORDERED: SODIUM CHLORIDE 0.9% 1000ML 1,000 ML IV SCH (15:00)
[2019-09-11] MEDS: KETOROLAC 30 MG/ML VIAL IV SCH ×2 (15:16→21:19)
[2019-09-11] MEDS: ACETAMINOPHEN 500 MG TAB PO SCH (17:01)
[2019-09-11] MEDS: OXYCODONE HCL IR 5 MG TAB (IMMEDIATE RELEASE) PO PRN ×2 (18:32→23:09)
[2019-09-11] MEDS: CEFAZOLIN 2000MG 2,000 MG/15 ML SYR IV SCH (20:43)
[2019-09-11] MEDS: SENNA 8.6 MG TAB PO SCH (20:43)
[2019-09-11] MEDS: DOCUSATE SODIUM 100 MG CAP PO SCH (20:43)
[2019-09-11] MEDS: ASPIRIN 81 MG ECTAB PO SCH (20:44)
[2019-09-11] MEDS: HYDROmorphone INJ 0.5 MG/0.5 ML SYR IV PRN (20:44)
[2019-09-12] MEDS: HYDROmorphone INJ 0.5 MG/0.5 ML SYR IV PRN ×3 (01:33→22:56)
[2019-09-12] MEDS: KETOROLAC 30 MG/ML VIAL IV SCH ×4 (04:42→21:15)
[2019-09-12] MEDS: CEFAZOLIN 2000MG 2,000 MG/15 ML SYR IV SCH (04:42)
[2019-09-12] MEDS: ACETAMINOPHEN 500 MG TAB PO SCH ×3 (04:42→21:13)
[2019-09-12] MEDS: OXYCODONE HCL IR 5 MG TAB (IMMEDIATE RELEASE) PO PRN ×4 (05:32→19:31)
[2019-09-12 05:49] LABS: Hematocrit (blood only) 36.3 % (42-52); Hemoglobin 12.3 g/dL (14.0-18.0); Mean Corpuscular Hemoglobin 30.5 pg (25-34); Mean Corpuscular Hgb Conc 33.9 g/dL (32-36); Mean Corpuscular Volume 90.1 fL (80-100); Mean Platelet Volume 9.3 fL (7.4-10.4); Platelet Count 225 K/uL (130-400); RDW Coefficient of Variation 13.4 % (11.5-14.5); RDW Standard Deviation 44.1 fL (36.4-46.3); Red Blood Count 4.03 M/uL (4.7-6.1); White Blood Count 14.21 K/uL (4.8-10.8)
[2019-09-12 06:18] LABS: BUN Creatinine Ratio 19.1 (10-20); Calcium 8.3 mg/dl (8.5-10.1); Creatinine Clr Calc Pharmacy 118.8 ml/min; Est GFR (Non-African American) 95.8; Potassium 4.1 mmol/L (3.5-5.1)
--- NOTE | 2019-09-12 06:18 | Orthopedic Progress Note ---
Date of Service September 12, 2019 Assessment & Plan (1) History of total right knee replacement: Overall he is doing about as well as expected. He will be seen by physical therapy this morning for ambulation and range of motion exercises. We plan to change his dressing tomorrow morning. He plans to be discharged home tomorrow. He is on aspirin for DVT prophylaxis. Present on Admission?: Yes Subjective Thomas was seen and examined at bedside this morning. Overall he is doing fairly well. He says he is having some soreness in the knee. He is already been up and ambulated on it. He had a little bit of nausea this morning. He has no other complaints. Physical Exam Musculoskeletal: Physical examination of the right knee, the dressing has a little bit of bloody drainage but has not been reinforced yet. He is able to easily do straight leg raises. He has his knee out in full extension. He is neurovascular intact. Results & Data ([facility]) Vital Signs (Past 12 Hours) Vital Signs Temp Pulse Resp BP Pulse Ox 09/12/19 04:43 36.6 C 68 18 156/91 H 95 09/11/19 23:07 36.8 C 72 17 134/79 95 09/11/19 19:13 36.8 C 86 18 124/82 95 Laboratory Results H & H 08/29/19 09/12/19 Range/Units 10:49 05:07 Hgb 15.4 12.3 L (14.0-18.0) g/dL Hct 44.9 36.3 L (42-52) % Coagulation 08/29/19 Range/Units 10:49 INR 1.0 (0.9-1.1) Diagnostic Findings Postoperative x-rays of the right knee show the prosthesis to be in anatomic alignment without any evidence of fracture, dislocation, or loosening. PG Care Time/CCT Total # of Minutes Spent Total Time Spent with Patient: Total time spent is greater than 50% in coordination of care (as documented) at patient's floor/unit and/or counseling patient: Coding Level of Care Code None Diagnoses History of total right knee replacement Z96.651
[2019-09-12] MEDS ORDERED: LORazepam 0.5 MG TAB PO PRN (06:21)
[2019-09-12] MEDS: MULTIVITAMIN TAB PO SCH (07:46)
[2019-09-12] MEDS: SERTRALINE HCL 100 MG TABLET PO SCH (07:46)
[2019-09-12] MEDS: DOCUSATE SODIUM 100 MG CAP PO SCH ×2 (07:46→21:13)
[2019-09-12] MEDS: ASPIRIN 81 MG ECTAB PO SCH ×2 (07:46→21:13)
[2019-09-12] MEDS: LABETALOL HCL 200 MG TAB PO SCH (07:46)
[2019-09-12] MEDS ORDERED: dexAMETHasone 4 MG TAB PO SCH (08:00)
[2019-09-12] MEDS: SENNA 8.6 MG TAB PO SCH (21:13)
[2019-09-13] MEDS: OXYCODONE HCL IR 5 MG TAB (IMMEDIATE RELEASE) PO PRN ×2 (03:34→08:51)
[2019-09-13] MEDS: KETOROLAC 30 MG/ML VIAL IV SCH ×2 (03:35→09:49)
[2019-09-13] MEDS: ACETAMINOPHEN 500 MG TAB PO SCH (05:25)
--- NOTE | 2019-09-13 06:53 | Orthopedic Progress Note ---
Date of Service September 13, 2019 Assessment & Plan (1) History of total right knee replacement: Overall he is doing well. He will be seen by physical therapy again this morning for ambulation and range of motion exercises. He is on aspirin for DVT prophylaxis. He can be discharged home later today. He will follow-up with orthopedics in 2 weeks. Present on Admission?: Yes Subjective Sang was seen and examined at bedside this morning. Overall is doing well. Is not having too much pain in the right knee. He was able to ambulate well yesterday with physical therapy. He has no complaints. Physical Exam Musculoskeletal: On physical examination of the right knee, the dressing has been changed. The dressing is clean and dry. He is wearing his SEAN hose stockings. He is neurovascular intact. Results & Data ([facility]) Vital Signs (Past 12 Hours) Vital Signs Temp Pulse Resp BP Pulse Ox 09/12/19 23:40 36.7 C 71 18 148/80 H 98 PG Care Time/CCT Total # of Minutes Spent Total Time Spent with Patient: Total time spent is greater than 50% in coordination of care (as documented) at patient's floor/unit and/or counseling patient: Coding Level of Care Code None Diagnoses History of total right knee replacement Z96.651
--- NOTE | 2019-09-13 06:55 | Discharge Summary ---
Date of Service September 13, 2019 Admission HPI Per Admitting Provider Sang is a pleasant 53-year-old male who is been dealing with chronic increasing right knee pain. X-rays and clinical examination have been diagnostic for osteoarthritis of the right knee. I did do a knee arthroscopy on him about 6 months ago. Unfortunately, that did not take care of his pain. The arthroscopy images did show advanced arthritis of the right knee. He has a history of a left total knee arthroplasty done in December 2017. He has done well with that. After failing extensive conservative treatment with his right knee, he has elected to proceed with a right total knee arthroplasty. Principal Diagnosis Right total knee arthroplasty Discharge Data Allergies Allergy/AdvReac Type Severity Reaction Status Date / Time No Known Allergies Allergy Verified 09/11/19 09:52 Consultations 09/11/19 14:55 Consult Case Management - Discharge Planning Routine Procedures Performed Operation Date: 09/11/19 11:30 Actual Procedures p Right Total Knee Arthroplasty(Right) - Joey Anderson DO Ordered Studies 09/11/19 05:00 US - OR guided needle placemen Routine Hospital Course (1) History of total right knee replacement: On September 11, 2019 Sang arrived at [facility] and underwent a right total knee arthroplasty without complication. He had a spinal anesthetic and a right adductor nerve block. Postoperatively he was started on aspirin for DVT prophylaxis and discharged to general orthopedic floors. His hospital course was uneventful. On postop day #1 his H&H was stable and his pain was well controlled. He was able to participate well with physical therapy doing ambulation and range of motion exercises. On postop day #2 his dressing was changed. He was seen once again by physical therapy. He was then discharged home. He will follow-up with orthopedics in 2 weeks. Total Time Total Time Spent Total Time Spent (In Minutes): 20 Discharge Plan Discharge Items Reason For Visit: Right Knee Degenerative Joint Disease Discharge Diagnosis: Right knee replacement Activity: As commented below Non-emergency contact: Surgeon Call non-emergency contact if: your wound has increased redness and your wound has increased drainage Follow-up/Referrals: Ismael Eddy MD [Primary Care Provider] - Diet: Regular Addtl Attending Provider Instructions: Activity and Therapy Recommendations: * If you are using [facility] then therapy will be provided at your home until they feel you have accomplished all of your goals. * If you are using [facility] then Physical Therapy will be provided until they feel you are ready to start Outpatient Physical Therapy. * If you are not using home therapy then Outpatient Physical Therapy should start about 3-5 days from your day of surgery. Therapy will last about 6-10 weeks * It is important not to put a pillow under your knee when you are relaxing or sleeping. It is just as important to make sure you are getting your knee perfectly straight as it is to regain your knee bend. * You were shown a series of exercises in the hospital. Do these exercises three times each day including the exercises you were shown in physical therapy. * Get up and walk several times each day. For the first four weeks, try not to stand or walk for more than one hour at a time. If you do stand or walk for more than one hour, you will not hurt anything, but your leg will likely swell. * As you feel comfortable, you may change from the walker or crutches to a cane and then to independent walking. Medications: * Narcotic You will likely be sent home from the hospital with a prescription for the narcotic pain medication that worked best throughout your stay. * Aspirin Most patients will be required to take Aspirin 81mg twice a day for 6 weeks after surgery. This is obtained [id number] and a prescription is not necessary. * Other medications may be prescribed for specific circumstances. If you have any questions, please call the office at . * Resume previous home medications unless otherwise instructed TEDs/Elastic Stockings: The white elastic stockings help limit swelling and prevent blood clots from forming in your legs.~ The more you wear them, the more they work. Wear them for six weeks. Dressing Care: If the incision is not draining then you may leave the fabiola open to air. If there is a little bit of drainage or if the fabiola are getting stuck on your clothing then cover the incision with a dry dressing. The fabiola will be removed at your 2 week follow-up appointment. Showering: You may shower 5 days from the day of surgery. Let the soapy shower water run over the fabiola and pat them dry. Do not scrub or soak the incision. Things To Watch For: * Drainage from the incision site that occurs more than one week after your surgery. * Increased redness at the incision site. * Fever above 102 degrees Fahrenheit. * Unusual chest pain or shortness of breath. * Call [facility] at with any of the above problems Follow-Up Visit: Follow-up with Dr. Anderson 2-3 weeks after your day of surgery. An appointment was probably scheduled when you signed-up for surgery in the office. If you have any questions call Office Instructions: More detailed instructions as well as Frequently Asked Questions were provided in a folder by our office when you signed-up for surgery. Please review these instructions when you get home. If you have any further questions or concerns, please feel free to call the office at [phone] Pending Studies at Discharge: No Stand-Alone Forms: My [facility] Evince, Smoking Cessation Medications and DC Order Prescriptions: New oxycodone 5 mg Tablet 5 mg PO Q4H PRN (Reason: pain) Qty: 60 RF: 0 aspirin [Ecotrin Low Strength] 81 mg Tablet,Delayed Release (Dr/Ec) 81 mg PO BID 42 Days Qty: 0 RF: 0 Continued Combivent Respimat 20-100 mcg/actuation Mist 1 puff INHALATION QID PRN (Reason: SOB) RF: 0 labetalol 200 mg tablet 200 mg PO QAM RF: 0 sertraline 100 mg tablet 200 mg PO QAM RF: 0 multivitamin capsule 1 cap PO QAM RF: 0 Discontinued tramadol 50 mg tablet 50 mg PO TID PRN (Reason: pain) Qty: 30 RF: 0 Admission Data Admit Date/Time: 09/11/19 13:36 Attending Provider: Joey Anderson Admit Provider: Joey Anderson Primary Care Provider: Ismael Eddy Coding Level of Care Code D/C Day Management <30 mins Diagnoses History of total right knee replacement Z96.651
[2019-09-13] MEDS: LABETALOL HCL 200 MG TAB PO SCH (08:44)
[2019-09-13] MEDS: DOCUSATE SODIUM 100 MG CAP PO SCH (08:44)
[2019-09-13] MEDS: SERTRALINE HCL 100 MG TABLET PO SCH (08:44)
[2019-09-13] MEDS: MULTIVITAMIN TAB PO SCH (08:44)
[2019-09-13] MEDS: ASPIRIN 81 MG ECTAB PO SCH (08:44)
== END 2019-09-13 13:16 | disposition home or self-care (01) | DRG 470 ==
LOC: ASU 09:21 → 3E 13:36

== ENCOUNTER 2021-07-27 22:37 | Inpatient (IN) ==
[2021-07-27] MEDS ORDERED: ACETAMINOPHEN 325 MG TAB PO STA (23:05)
[2021-07-27] MEDS ORDERED: dexAMETHasone**PF** 10 MG/ML VIAL IV ONE (23:08)
--- NOTE | 2021-07-27 23:18 | Emergency Department Note ---
Impression & Plan 2019 novel coronavirus-infected pneumonia (NCIP), Weakness ED Provider Note Provider: Wale Hastings MD DATE OF SERVICE: 07/27/2021 CHIEF COMPLAINT: Shortness of breath, Covid, weakness HISTORY OF PRESENT ILLNESS: Patient is a 55-year-old gentleman history of hypertension presenting here today reporting Covid symptoms for the past week. Had a positive home test. Did have a virtual visit with his doctor last week. Patient states has been using Aleve and Tylenol at home. Still having fevers. Decreased intake. Some upper chest pain and headaches and diffuse myalgias. No syncope or trauma reported. States he can barely walk and is very shaky when trying to move around and just feels short of breath. Dry cough reported. Mother was hospitalized but is doing little bit better. Patient is not a smoker. Talked with his doctor today and was referred here for evaluation but waited until things were back to call for help as he did not really want to come to the hospital. Reports decreased intake and darker urine. REVIEW OF SYSTEMS: A total of 10 review of systems was obtained and negative except as stated above in the HPI. PAST MEDICAL HISTORY: As noted above MEDICATIONS: Reviewed home medications SOCIAL HISTORY: Non-smoker, lives at home with PHYSICAL EXAM: GENERAL: alert and oriented in no acute distress on stretcher however fatigued appearing Head: normocephalic and atraumatic EYES: No injection, discharge or icterus. NECK: Trachea midline. ENT: Mucous membranes pink and moist. LUNGS: Airway patent. No retractions but becomes tachypneic with any movement with increased work of breathing then. HEART: Regular rate and rhythm. No chest wall tenderness ABDOMEN: Soft and non-tender, without guarding or rebound. SKIN: Acyanotic, warm, dry, without rashes EXTREMITIES: Without swelling, tenderness or deformity NEUROLOGICAL: No focal deficits moving all extremities No aphasia. No slurred speech. Ambulates with an unsteady gait and tremors and with significantly increased work of breathing EK bpm normal sinus rhythm. No PVC or PAC. No acute ST segment elevation or depression. QTC 427. Nonspecific lead III T wave flattening. CONTINUOUS CARDIAC MONITORING: was ordered and showed a heart rate of 70s-90s bpm in normal sinus rhythm 1 view chest x-ray per my interpretation: No evidence of pneumothorax. No pleural effusions. No cardiomegaly. Patient with diffuse interstitial viral findings consistent with Covid pneumonia. No significant focal consolidation. Some rotation is noted of the patient as well as ACDF hardware in the cervical spine. Patient's laboratory studies and imaging reviewed. Differential includes Infection, dehydration, metabolic abnormality, hypo/hyperglycemia, electrolyte disturbance, anemia, hypoxia, cardiac sources, intracerebral event, toxicologic, neurologic, as well as other pathologies. IMPRESSION/MEDICAL DECISION MAKING: Unimmunized Covid patient approximately 7 days into illness not significantly hypoxic at rest but becomes mildly hypoxic with ambulation and movement and has significant work of breathing with this and tremor. Some fever here and given some Tylenol. Some mild IV hydration given as well as some steroid given his Covid status. X-ray and labs sent. Doubt this is bacterial in nature. Doubt meningitis. Tremulous at this time but I doubt it represents rigors. Covid test ordered here with positive at home Covid test within the last several days. Chest x-ray consistent with inflammatory status of Covid pneumonia but no significant focal consolidation concerning for bacterial pneumonia at this time or pleural effusions. Procalcitonin undetectably low. No significant leukocytosis or anemia. No significant electrolyte abnormality or renal dysfunction noted. Slight AST elevation likely related to inflammatory state from Covid as is the mildly elevated CRP. No troponin elevation. Lower suspicion at this time for acute PE given the x-ray findings believe this is consistent with Covid pneumonia and symptomatologies. Given a small amount again fluid for hydration status. No evidence of rhabdomyolysis based on labs. Patient is significantly weak and becomes hypoxic with ambulation and cannot really ambulate well and becomes quite shaky. Some component of stress and anxiety likely contributing. Desats into the high 80s upon return from walking without oxygen. At this point discussed with the hospitalist for further care here at the hospital. Patient was in agreement with this plan DIAGNOSIS: COVID-19 pneumonia, weakness DISPOSITION: Hospitalist will evaluate Patient was agreeable with this plan. Past Med/Surg History Medical History (Updated 07/27/21 @ 23:24 by Wale Hastings M.D.) Asthma Depression Diverticular disease hx diverticular perforation s/p bowel resection/colostomy/colostomy reversal History of pneumonia Many years ago, was in hospital for bowel perforation and developed HAP. Hypertension Surgical History (Updated 09/12/19 @ 06:18 by Joey Anderson DO) Fusion of spine C3-C5 "FULL ROM" H/O wrist surgery RIGHT History of appendectomy History of arthroscopy right knee arthroscopy: 03/29/19: LMA#5 History of bowel resection With colostomy, for bowel perforation. History of bronchoscopy History of colonoscopy History of colostomy History of colostomy reversal History of detached retina repair LEFT History of herniorrhaphy open abdominal hernia x8 with mesh. 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: No Beliefs That Will Affect Care: None marital status: Current Living Situation: Family Feels Safe at Home: Yes Assistive Devices: Walker Allergies Allergies Allergy/AdvReac Type Severity Reaction Status Date / Time No Known Allergies Allergy Verified 07/27/21 23:57 Home Meds Home Medications Medication Instructions Recorded Confirmed ipratropium 20 mcg-albuterol 100 1 puff INHALATION QID PRN 03/21/19 07/27/21 mcg/actuation mist for inhalation (Combivent Respimat) labetalol 200 mg tablet 200 mg PO QAM 06/03/19 07/27/21 sertraline 100 mg tablet 200 mg PO QAM 06/03/19 07/27/21 alprazolam 0.25 mg tablet 0.25 mg PO QID PRN 07/27/21 07/27/21 ascorbic acid (vitamin C) 500 mg 500 mg PO DAILY 07/27/21 07/27/21 tablet (Vitamin C) cholecalciferol (vitamin D3) 25 25 mcg PO DAILY 07/27/21 07/27/21 mcg (1,000 unit) tablet (Vitamin D3) multivitamin 1 tab PO DAILY 07/27/21 07/27/21 vitamin E 400 unit capsule 400 unit PO DAILY 07/27/21 07/27/21 Results & Data (ED) Vital Signs Vital Signs - 24 hr 07/27/21 22:55 07/27/21 22:58 07/27/21 22:59 Temperature 38.2 C H 38.2 C H Temperature Source Oral Oral Pulse Rate 90 Pulse Rate [Apical] 91 H Respiratory Rate 22 22 Blood Pressure 160/101 H Blood Pressure Mean 120 Pulse Oximetry 94 94 94 Oxygen Delivery Method Nasal Cannula Nasal Cannula Nasal Cannula Oxygen Flow Rate 2 2 2 Sepsis Recent Fever Within 48 Hours No Sepsis New/Unexplained Change in Mental Status No Sepsis Action Taken by Nursing No Action Required Laboratory Data Result diagrams: 07/27/21 22:44 07/27/21 22:44 Lab Results 07/27/21 07/27/21 07/27/21 Range/Units 22:44 22:44 22:44 WBC 7.08 (4.8-10.8) K/uL RBC 4.68 L (4.7-6.1) M/uL Hgb 14.3 (14.0-18.0) g/dL Hct 42.1 (42-52) % MCV 90.0 (80-100) fL MCH 30.6 (25-34) pg MCHC 34.0 (32-36) g/dL RDW Std Deviation 45.7 (36.4-46.3) fL RDW Coeff of Ashish 13.8 (11.5-14.5) % Plt Count 233 (130-400) K/uL MPV 9.4 (7.4-10.4) fL Immature Gran % (Auto) 0.1 % Neut % (Auto) 71.3 % Lymph % (Auto) 17.9 % [place] % (Auto) 9.5 % Eos % (Auto) 1.1 % Baso % (Auto) 0.1 % Neut # (Auto) 5.04 (1.4-6.5) K/uL Lymph # (Auto) 1.27 (1.2-3.4) K/uL [place] # (Auto) 0.67 H (0.11-0.59) K/uL Eos # (Auto) 0.08 (0-0.5) K/uL Baso # (Auto) 0.01 (0-0.2) K/uL Immature Gran # (Auto) 0.01 (0.00-0.02) K/uL PT 10.0 (9.0-12.0) Seconds INR 1.0 (0.9-1.1) Sodium 138 (136-145) mmol/L Potassium 4.1 (3.5-5.1) mmol/L Chloride 106 (98-107) mmol/L Carbon Dioxide 26 (21-32) mmol/L Anion Gap 6.0 (3-11) BUN 11 (7-18) mg/dl Creatinine 0.77 (0.6-1.4) mg/dl Est Cr Clr Drug Dosing 138.4 ml/min Est GFR ( Amer) 116.8 ml/min Est GFR (Non-Af Amer) 100.7 ml/min BUN/Creatinine Ratio 14.3 (10-20) Glucose 112 H (70-99) mg/dl Calcium 8.8 (8.5-10.1) mg/dl Total Bilirubin 0.5 (0.2-1) mg/dl AST 39 H (15-37) U/L ALT 47 (12-78) Alkaline Phosphatase 72 (45-117) U/L Total Creatine Kinase 214 (39-308) U/L Troponin I < 0.015 (0-0.045) ng/ml C-Reactive Protein 4.33 H (0-0.29) mg/dl Total Protein 7.0 (6.4-8.2) gm/dl Albumin 3.2 L (3.4-5.0) gm/dl Globulin 3.8 (2.5-4.0) gm/dl Albumin/Globulin Ratio 0.8 L (0.9-2) Lipase 112 (73-393) U/L Procalcitonin (0-0.5) ng/ml Urine Color Urine Appearance (Clear) Urine pH (4.5-7.5) Ur Specific [place] (1.000-1.030) Urine Protein (Negative) Urine Glucose (UA) (Negative) Urine Ketones (Negative) Urine Blood (Negative) Urine Nitrite (Negative) Urine Bilirubin (Negative) Urine Urobilinogen (Negative) Ur Leukocyte Esterase (Negative) Urine WBC (Auto) (0-5) /hpf Urine RBC (Auto) (0-4) /hpf U Hyaline Cast (Auto) (0-5) /lpf U Epithel Cells (Auto) (0-5) /lpf Urine Bacteria (Auto) (Negative) 07/27/21 07/27/21 Range/Units 22:44 23:49 WBC (4.8-10.8) K/uL RBC (4.7-6.1) M/uL Hgb (14.0-18.0) g/dL Hct (42-52) % MCV (80-100) fL MCH (25-34) pg MCHC (32-36) g/dL RDW Std Deviation (36.4-46.3) fL RDW Coeff of Ashish (11.5-14.5) % Plt Count (130-400) K/uL MPV (7.4-10.4) fL Immature Gran % (Auto) % Neut % (Auto) % Lymph % (Auto) % [place] % (Auto) % Eos % (Auto) % Baso % (Auto) % Neut # (Auto) (1.4-6.5) K/uL Lymph # (Auto) (1.2-3.4) K/uL [place] # (Auto) (0.11-0.59) K/uL Eos # (Auto) (0-0.5) K/uL Baso # (Auto) (0-0.2) K/uL Immature Gran # (Auto) (0.00-0.02) K/uL PT (9.0-12.0) Seconds INR (0.9-1.1) Sodium (136-145) mmol/L Potassium (3.5-5.1) mmol/L Chloride (98-107) mmol/L Carbon Dioxide (21-32) mmol/L Anion Gap (3-11) BUN (7-18) mg/dl Creatinine (0.6-1.4) mg/dl Est Cr Clr Drug Dosing ml/min Est GFR ( Amer) ml/min Est GFR (Non-Af Amer) ml/min BUN/Creatinine Ratio (10-20) Glucose (70-99) mg/dl Calcium (8.5-10.1) mg/dl Total Bilirubin (0.2-1) mg/dl AST (15-37) U/L ALT (12-78) Alkaline Phosphatase (45-117) U/L Total Creatine Kinase (39-308) U/L Troponin I (0-0.045) ng/ml C-Reactive Protein (0-0.29) mg/dl Total Protein (6.4-8.2) gm/dl Albumin (3.4-5.0) gm/dl Globulin (2.5-4.0) gm/dl Albumin/Globulin Ratio (0.9-2) Lipase (73-393) U/L Procalcitonin < 0.05 (0-0.5) ng/ml Urine Color Dark Yellow Urine Appearance Clear (Clear) Urine pH 7.0 (4.5-7.5) Ur Specific [place] 1.023 (1.000-1.030) Urine Protein Trace H (Negative) Urine Glucose (UA) Negative (Negative) Urine Ketones Negative (Negative) Urine Blood Negative (Negative) Urine Nitrite Negative (Negative) Urine Bilirubin Negative (Negative) Urine Urobilinogen Negative (Negative) Ur Leukocyte Esterase Trace H (Negative) Urine WBC (Auto) 1-5 (0-5) /hpf Urine RBC (Auto) 0-4 (0-4) /hpf U Hyaline Cast (Auto) 1-5 (0-5) /lpf U Epithel Cells (Auto) 10-20 H (0-5) /lpf Urine Bacteria (Auto) Negative (Negative) Administered Medications Discontinued Medications Acetaminophen (Acetaminophen 325 Mg Tab) 650 mg PO NOW STA Stop: 07/27/21 23:06 Last Admin: 07/27/21 23:52 Dose: 650 mg Documented by: [id number] Dexamethasone Sodium Phosphate (DexamethasonePf 10 Mg/Ml Vial) 6 mg IV NOW ONE Stop: 07/27/21 23:09 Last Admin: 07/27/21 23:52 Dose: 6 mg Documented by: [id number] Sodium Chloride (Nss) 500 mls @ 999 mls/hr IV .Q31M ONE Stop: 07/27/21 23:51 Last Admin: 07/27/21 23:45 Dose: 999 mls/hr Documented by: [id number] Discharge Plan Visit Data Chief Complaint: Shortness of Breath/Dyspnea Stated Complaint: COVID +/BREATHING DIFF ED Provider: Wale Hastings Discharge Problem: 2019 novel coronavirus-infected pneumonia (NCIP), Weakness Patient Disposition: Being Evaluated by Hospitalist Forms Stand Alone Forms: [employer] Prescriptions Prescriptions: No Action Combivent Respimat 20-100 mcg/actuation Mist 1 puff INHALATION QID PRN (Reason: SOB) RF: 0 labetalol 200 mg tablet 200 mg PO QAM RF: 0 sertraline 100 mg tablet 200 mg PO QAM RF: 0 alprazolam 0.25 mg tablet 0.25 mg PO QID PRN (Reason: Anxiety) RF: 0 multivitamin [Multiple Vitamin] Tablet 1 tab PO DAILY RF: 0 ascorbic acid (vitamin C) [Vitamin C] 500 mg Tablet 500 mg PO DAILY RF: 0 vitamin E 400 unit Capsule 400 unit PO DAILY RF: 0 cholecalciferol (vitamin D3) [Vitamin D3] 25 mcg (1,000 unit) Tablet 25 mcg PO DAILY RF: 0 Referrals Referrals: Ismael Eddy MD [Primary Care Provider] -
[2021-07-27] MEDS ORDERED: SODIUM CHLORIDE 0.9% 500 ML IV ONE (23:21)
[2021-07-27 23:30] LABS: Basophils # (auto) 0.01 K/uL (0-0.2); Basophils % (auto) 0.1 %; Eosinophils # (auto) 0.08 K/uL (0-0.5); Eosinophils % (auto) 1.1 %; Hematocrit (blood only) 42.1 % (42-52); Hemoglobin 14.3 g/dL (14.0-18.0); Immature Granulocytes # (auto) 0.01 K/uL (0.00-0.02); Immature Granulocytes % (auto) 0.1 %; Lymphocytes # (auto) 1.27 K/uL (1.2-3.4); Lymphocytes % (auto) 17.9 %; Mean Corpuscular Hemoglobin 30.6 pg (25-34); Mean Platelet Volume 9.4 fL (7.4-10.4); Monocytes # (auto) 0.67 K/uL (0.11-0.59); Monocytes % (auto) 9.5 %; Neutrophils # (auto) 5.04 K/uL (1.4-6.5); Neutrophils % (auto) 71.3 %; Platelet Count 233 K/uL (130-400); RDW Coefficient of Variation 13.8 % (11.5-14.5); RDW Standard Deviation 45.7 fL (36.4-46.3); Red Blood Count 4.68 M/uL (4.7-6.1); White Blood Count 7.08 K/uL (4.8-10.8)
[2021-07-27 23:41] LABS: Alanine Aminotransferase 47 (12-78); Albumin Level 3.2 gm/dl (3.4-5.0); Aspartate Aminotransferase 39 U/L (15-37); BUN Creatinine Ratio 14.3 (10-20); Blood Urea Nitrogen 11 mg/dl (7-18); Calcium 8.8 mg/dl (8.5-10.1); Carbon Dioxide 26 mmol/L (21-32); Chloride 106 mmol/L (98-107); Creatinine Clr Calc Pharmacy 138.4 ml/min; Est GFR (African American) 116.8 ml/min; Est GFR (Non-African American) 100.7 ml/min; Glucose 112 mg/dl (70-99); Lipase 112 U/L (73-393); Potassium 4.1 mmol/L (3.5-5.1); Sodium 138 mmol/L (136-145)
[2021-07-27 23:45] LABS: Albumin Globulin Ratio 0.8 (0.9-2); Alkaline Phosphatase 72 U/L (45-117); Bilirubin,Total 0.5 mg/dl (0.2-1); C Reactive Protein 4.33 mg/dl (0-0.29); Creatine Kinase 214 U/L (39-308); Globulin 3.8 gm/dl (2.5-4.0); Troponin I < 0.015 ng/ml (0-0.045)
[2021-07-28 00:08] LABS: Appearance Urine Clear (Clear); Bacteria Urine Automated Negative (Negative); Bilirubin Urine Negative (Negative); Blood Urine Negative (Negative); Color Urine Dark Yellow; Glucose Urine UA Negative (Negative); Ketones Urine Negative (Negative); Leukocyte Esterase Urine Trace (Negative); Nitrite Urine Negative (Negative); Protein Urine Trace (Negative); RBC Urine Automated 0-4 /hpf (0-4); Specific Gravity Urine 1.023 (1.000-1.030); Urobilinogen Urine Negative (Negative)
[2021-07-28] MEDS ORDERED: REMDESIVIR 200 MG in SODIUM CHLORIDE 0.9% 210 ML IV STA (01:20)
--- NOTE | 2021-07-28 01:21 | History & Physical Report ---
Date of Service July 28, 2021 Assessment & Plan (1) 2019 novel coronavirus-infected pneumonia (NCIP): Plan: 55yo male with history of HTN, active smoker presenting with Covid-19 infection, hypoxia. He is on day 7-8 of illness. Febrile at present. Saturations on RA <94% and upper 80's with ambulation. He is not vaccinated against Covid-19. -Admit to medical -Maintain isolation precautions -Check LDH, Ferritin, BNP, CRP -Supplemental O2 as needed to maintain saturations >92% -Dexamethasone 6mg IV daily -Remdesivir x 5 day protocol - monitor labs daily -Tylenol, Zofran and Tessalon as needed (2) HTN (hypertension): Plan: Chronic. BP elevated at 160/101 -Continue Labetalol 200m gpo qAM -Monitor (3) Depression: Plan: Chronic -Continue Alprazolam PRN anxiety -Continue Sertraline 200mg po qam (4) Asthma: Plan: Chronic -Continue Combivent -Albuterol PRN -Smoking cessation counseling History of Present Illness Chief Complaint: Covid-19 Primary Care Provider: Ismael Eddy MD [place] is a 55yo male with history of asthma, depression and hypertension presenting with Covid-19 PNA, hypoxia. Patient has been feeling ill x 7-8 days - complaining of cough, fever, chills, myalgias, body aches, weakness and fatigue. He also has upper chest discomfort following cough and MARSH, SOB and CAT. Patient is not vaccinated against Covid. His mother was recently hospitalized briefly with Covid and is now at home recovering. Saturations of 90 - 92% on room air which decrease to upper 80's with ambulation. Patient becomes very dyspneic with ambulation. ER Course: Acetaminophen, Dexamethasone, NSS Allergies Allergy/AdvReac Type Severity Reaction Status Date / Time No Known Allergies Allergy Verified 07/27/21 23:57 Home Medications Medication Instructions Recorded Confirmed Type ipratropium 20 mcg-albuterol 100 1 puff INHALATION QID PRN 03/21/19 07/27/21 History mcg/actuation mist for inhalation (Combivent Respimat) labetalol 200 mg tablet 200 mg PO QAM 06/03/19 07/27/21 History sertraline 100 mg tablet 200 mg PO QAM 06/03/19 07/27/21 History alprazolam 0.25 mg tablet 0.25 mg PO QID PRN 07/27/21 07/27/21 History ascorbic acid (vitamin C) 500 mg 500 mg PO DAILY 07/27/21 07/27/21 History tablet (Vitamin C) cholecalciferol (vitamin D3) 25 25 mcg PO DAILY 07/27/21 07/27/21 History mcg (1,000 unit) tablet (Vitamin D3) multivitamin 1 tab PO DAILY 07/27/21 07/27/21 History vitamin E 400 unit capsule 400 unit PO DAILY 07/27/21 07/27/21 History Past Med/Surg History Medical History (Updated 07/28/21 @ 02:20 by Amalia Prieto DO) Asthma Depression Diverticular disease hx diverticular perforation s/p bowel resection/colostomy/colostomy reversal History of pneumonia Many years ago, was in hospital for bowel perforation and developed HAP. Hypertension Surgical History (Updated 09/12/19 @ 06:18 by Joey Anderson DO) Fusion of spine C3-C5 "FULL ROM" H/O wrist surgery RIGHT History of appendectomy History of arthroscopy right knee arthroscopy: 03/29/19: LMA#5 History of bowel resection With colostomy, for bowel perforation. History of bronchoscopy History of colonoscopy History of colostomy History of colostomy reversal History of detached retina repair LEFT History of herniorrhaphy open abdominal hernia x8 with mesh. History of total knee replacement LEFT; 01/06/18 [facility] -- SAB + regional block both x 1 attempt History of total right knee replacement (~08/2019) Family History Other No known health problems Social History Smoking Status: Never smoker Second Hand Exposure: No; Hx Alcohol Use: Yes Alcohol type: beer Hx Substance Use: No Preferred Language: Yi Communication Ability: Effective Concert Promoter Required: No Beliefs That Will Affect Care: None marital status: Current Living Situation: Family Feels Safe at Home: Yes Assistive Devices: Walker Review of Systems Review of Systems: All systems reviewed & are unremarkable except as noted in HPI & below Physical Exam Physical Exam: General: patient resting comfortably, NAD, non-toxic in appearance, AA&O x 4 Skin: warm, dry, intact, no rashes or lesions HEENT: NC/AT, PERRL, EOMI, anicteric sclera, conjunctiva without injection, external ear normal to inspection and nontender, nares patent, moist mucus membranes, dentition intact, no oropharyngeal lesions, neck supple, trachea midline, no LAD, no thyromegaly, no JVD Heart: +S1/S2, regular, no m/r/g Lungs: equal air entry bilaterally, scattered end-expiratory wheezing with rhonchi cleared by coughing Abd: +BS, soft, NT/ND, no masses/organomegaly/ascites Ext: warm, 2+ pulses in UE/LE bilaterally, no clubbing/cyanosis or edema Neuro: nonfocal, patient AA&O x 4, speech intact, no facial droop, moving all extremities on command with equal strength 5/5 Results & Data Results & Data ([facility]) Vital Signs (Past 12 Hours) Vital Signs Temp Pulse Pulse Resp BP Pulse Ox 07/27/21 22:59 38.2 C H 91 H 22 94 07/27/21 22:58 94 07/27/21 22:55 38.2 C H 90 22 160/101 H 94 Laboratory Results Laboratory Results WBC 7.08 K/uL (4.8-10.8) 07/27/21 22:44 RBC 4.68 M/uL (4.7-6.1) L 07/27/21 22:44 Hgb 14.3 g/dL (14.0-18.0) 07/27/21 22:44 Hct 42.1 % (42-52) 07/27/21 22:44 MCV 90.0 fL (80-100) 07/27/21 22:44 MCH 30.6 pg (25-34) 07/27/21 22:44 MCHC 34.0 g/dL (32-36) 07/27/21 22:44 RDW Std Deviation 45.7 fL (36.4-46.3) 07/27/21 22:44 RDW Coeff of Ashish 13.8 % (11.5-14.5) 07/27/21 22:44 Plt Count 233 K/uL (130-400) 07/27/21 22:44 MPV 9.4 fL (7.4-10.4) 07/27/21 22:44 Immature Gran % (Auto) 0.1 % 07/27/21 22:44 Neut % (Auto) 71.3 % 07/27/21 22:44 Lymph % (Auto) 17.9 % 07/27/21 22:44 [place] % (Auto) 9.5 % 07/27/21 22:44 Eos % (Auto) 1.1 % 07/27/21 22:44 Baso % (Auto) 0.1 % 07/27/21 22:44 Neut # (Auto) 5.04 K/uL (1.4-6.5) 07/27/21 22:44 Lymph # (Auto) 1.27 K/uL (1.2-3.4) 07/27/21 22:44 [place] # (Auto) 0.67 K/uL (0.11-0.59) H 07/27/21 22:44 Eos # (Auto) 0.08 K/uL (0-0.5) 07/27/21 22:44 Baso # (Auto) 0.01 K/uL (0-0.2) 07/27/21 22:44 Immature Gran # (Auto) 0.01 K/uL (0.00-0.02) 07/27/21 22:44 PT 10.0 Seconds (9.0-12.0) 07/27/21 22:44 INR 1.0 (0.9-1.1) 07/27/21 22:44 Sodium 138 mmol/L (136-145) 07/27/21 22:44 Potassium 4.1 mmol/L (3.5-5.1) 07/27/21 22:44 Chloride 106 mmol/L (98-107) 07/27/21 22:44 Carbon Dioxide 26 mmol/L (21-32) 07/27/21 22:44 Anion Gap 6.0 (3-11) 07/27/21 22:44 BUN 11 mg/dl (7-18) 07/27/21 22:44 Creatinine 0.77 mg/dl (0.6-1.4) 07/27/21 22:44 Est Cr Clr Drug Dosing 138.4 ml/min 07/27/21 22:44 Est GFR ( Amer) 116.8 ml/min 07/27/21 22:44 Est GFR (Non-Af Amer) 100.7 ml/min 07/27/21 22:44 BUN/Creatinine Ratio 14.3 (10-20) 07/27/21 22:44 Glucose 112 mg/dl (70-99) H 07/27/21 22:44 Calcium 8.8 mg/dl (8.5-10.1) 07/27/21 22:44 Total Bilirubin 0.5 mg/dl (0.2-1) 07/27/21 22:44 AST 39 U/L (15-37) H 07/27/21 22:44 ALT 47 (12-78) 07/27/21 22:44 Alkaline Phosphatase 72 U/L (45-117) 07/27/21 22:44 Total Creatine Kinase 214 U/L (39-308) 07/27/21 22:44 Troponin I < 0.015 ng/ml (0-0.045) 07/27/21 22:44 C-Reactive Protein 4.33 mg/dl (0-0.29) H 07/27/21 22:44 Total Protein 7.0 gm/dl (6.4-8.2) 07/27/21 22:44 Albumin 3.2 gm/dl (3.4-5.0) L 07/27/21 22:44 Globulin 3.8 gm/dl (2.5-4.0) 07/27/21 22:44 Albumin/Globulin Ratio 0.8 (0.9-2) L 07/27/21 22:44 Lipase 112 U/L (73-393) 07/27/21 22:44 Procalcitonin < 0.05 ng/ml (0-0.5) 07/27/21 22:44 Urine Color Dark Yellow 07/27/21 23:49 Urine Appearance Clear (Clear) 07/27/21 23:49 Urine pH 7.0 (4.5-7.5) 07/27/21 23:49 Ur Specific [place] 1.023 (1.000-1.030) 07/27/21 23:49 Urine Protein Trace (Negative) H 07/27/21 23:49 Urine Glucose (UA) Negative (Negative) 07/27/21 23:49 Urine Ketones Negative (Negative) 07/27/21 23:49 Urine Blood Negative (Negative) 07/27/21 23:49 Urine Nitrite Negative (Negative) 07/27/21 23:49 Urine Bilirubin Negative (Negative) 07/27/21 23:49 Urine Urobilinogen Negative (Negative) 07/27/21 23:49 Ur Leukocyte Esterase Trace (Negative) H 07/27/21 23:49 Urine WBC (Auto) 1-5 /hpf (0-5) 07/27/21 23:49 Urine RBC (Auto) 0-4 /hpf (0-4) 07/27/21 23:49 U Hyaline Cast (Auto) 1-5 /lpf (0-5) 07/27/21 23:49 U Epithel Cells (Auto) 10-20 /lpf (0-5) H 07/27/21 23:49 Urine Bacteria (Auto) Negative (Negative) 07/27/21 23:49 SARS-CoV-2, RNA, NAAT POSITIVE (NEGATIVE) A* 07/27/21 23:49 Code Status & VTE Plan VTE Prophylaxis Plan VTE Prophylaxis will be ordered: Yes PG Care Time/CCT Total # of Minutes Spent Total Time Spent with Patient: Total time spent is greater than 50% in coordination of care (as documented) at patient's floor/unit and/or counseling patient: Coding Level of Care Code 06015 Initial Inpt Care Lvl 2 Diagnoses HTN (hypertension) I10 Depression F32.9 Asthma J45.909 2019 novel coronavirus-infected pneumonia (NCIP) U07.1; J12.82
[2021-07-28] MEDS ORDERED: ALBUTEROL HFA 8 GM INHALER INH PRN ×2 (03:56→04:39)
[2021-07-28] MEDS ORDERED: IPRATROPIUM BROMIDE/ALBUTEROL respimat INH INH PRN (03:56)
[2021-07-28] MEDS ORDERED: ALPRAZolam 0.25 MG TABLET PO PRN (03:56)
[2021-07-28] MEDS ORDERED: ACETAMINOPHEN 325 MG TAB PO PRN (03:56)
[2021-07-28] MEDS ORDERED: IPRATROPIUM BROMIDE HFA INHALER INH PRN (04:39)
--- NOTE | 2021-07-28 07:20 | XRay Report ---
XR chest 1V portable CLINICAL HISTORY: Fever, cough TECHNIQUE: Single frontal radiograph of the chest was obtained. Comparison: Comparison is made to chest radiographs 06/03/2019 FINDINGS: No lines and tubes are seen. The cardiomediastinal silhouette is normal. Left greater than right lowe r lobe predominant airspace opacities are seen. No evidence of pleural effusion or pneumothorax. IMPRESSION: Bilateral lower lung predominant airspace opacities which may represent atelectasis, pneumonia, and/o r aspiration. ACT 112: Negative or not required by law. Electronically signed by: Guilherme Medina M.D. 07/28/2021 7:19 AM
[2021-07-28] MEDS: ONDANSETRON INJ 2 MG/ML 2 ML VIAL IV PRN (10:00)
[2021-07-28] MEDS: ENOXAPARIN INJ 40 MG/0.4 ML SYR SQ SCH ×2 (10:40→17:51)
[2021-07-28] MEDS: SERTRALINE HCL 100 MG TABLET PO SCH (10:42)
[2021-07-28] MEDS: guaiFENesin 600 MG TABCR PO SCH ×2 (10:44→21:36)
[2021-07-28] MEDS: BENZONATATE 100 MG CAPSULE PO SCH ×3 (10:44→21:36)
[2021-07-28] MEDS: dexAMETHasone 6 MG in SYRINGE 0 ML IV SCH (10:44)
[2021-07-28] MEDS: LABETALOL HCL 200 MG TAB PO SCH (10:44)
[2021-07-28] MEDS ORDERED: Flu Vaccine (Fluarix) 0.5mL SYR (Standard Dose) IM ONE (13:30)
[2021-07-28] MEDS: ALPRAZolam 0.5 MG TABLET PO PRN (20:50)
--- NOTE | 2021-07-28 23:12 | History & Physical Bridge Note ---
Date of Service July 28, 2021 History & Physical Bridge Note I have examined the patient, reviewed the History & Physical and in the interval since the performance of the History & Physical I have noted the following changes of clinical significance: Patient reports shortness of breath is improved on oxygen. He denies any recent alcohol use. He does not currently smoke. He denies any diarrhea or constipation at this time, no nausea. He is eating and drinking somewhat. Vitals reviewed Gen: AAOx3, NAD HEENT: Anicteric sclerae, EOMI CV: RRR no mgr nl S1S2 Pulm: Some crackles at bilateral lower and middle lung maradiaga Abd: +BS soft NT ND no masses or hernias Ext: No edema, 2+ DP pulses Skin: No rashes, warm/dry Neuro: Full strength throughout Labs reviewed 55-year-old male with history of HTN, depression, asthma, here with Covid-19 pneumonia and acute respiratory failure with hypoxia. Stable on 2 L nasal cannula Continue current care with albuterol as needed, IV Decadron, Remdesivir
[2021-07-29] MEDS: ENOXAPARIN INJ 40 MG/0.4 ML SYR SQ SCH ×2 (06:03→17:11)
[2021-07-29 06:04] LABS: Basophils # (auto) 0.01 K/uL (0-0.2); Basophils % (auto) 0.1 %; Eosinophils # (auto) 0.01 K/uL (0-0.5); Eosinophils % (auto) 0.1 %; Hematocrit (blood only) 41.5 % (42-52); Immature Granulocytes # (auto) 0.03 K/uL (0.00-0.02); Immature Granulocytes % (auto) 0.4 %; Lymphocytes # (auto) 0.83 K/uL (1.2-3.4); Lymphocytes % (auto) 10.4 %; Mean Corpuscular Hemoglobin 29.9 pg (25-34); Mean Corpuscular Hgb Conc 33.7 g/dL (32-36); Mean Corpuscular Volume 88.7 fL (80-100); Mean Platelet Volume 9.4 fL (7.4-10.4); Monocytes # (auto) 0.77 K/uL (0.11-0.59); Monocytes % (auto) 9.6 %; Neutrophils # (auto) 6.33 K/uL (1.4-6.5); Neutrophils % (auto) 79.4 %; Platelet Count 248 K/uL (130-400); RDW Coefficient of Variation 13.5 % (11.5-14.5); RDW Standard Deviation 43.9 fL (36.4-46.3); Red Blood Count 4.68 M/uL (4.7-6.1); White Blood Count 7.98 K/uL (4.8-10.8)
[2021-07-29 06:37] LABS: BUN Creatinine Ratio 20.9 (10-20); Bilirubin Direct 0.2 mg/dl (0-0.2); Calcium 8.9 mg/dl (8.5-10.1); Creatinine Clr Calc Pharmacy 134.9 ml/min; Est GFR (African American) 115.5 ml/min; Est GFR (Non-African American) 99.7 ml/min
[2021-07-29 06:40] LABS: Bilirubin,Total 0.4 mg/dl (0.2-1); C Reactive Protein 3.93 mg/dl (0-0.29); Total Protein 6.9 gm/dl (6.4-8.2)
[2021-07-29] MEDS: SERTRALINE HCL 100 MG TABLET PO SCH (07:15)
[2021-07-29] MEDS: LABETALOL HCL 200 MG TAB PO SCH (07:16)
[2021-07-29] MEDS: guaiFENesin 600 MG TABCR PO SCH ×2 (07:16→20:12)
[2021-07-29] MEDS: BENZONATATE 100 MG CAPSULE PO SCH ×4 (07:16→20:18)
[2021-07-29] MEDS: dexAMETHasone 6 MG in SYRINGE 0 ML IV SCH (07:17)
[2021-07-29] MEDS: ONDANSETRON INJ 2 MG/ML 2 ML VIAL IV PRN ×2 (09:00→22:54)
[2021-07-29] MEDS: SODIUM CHLORIDE 0.9% 10ML FLUSH IV SCH (11:19)
[2021-07-29] MEDS: REMDESIVIR 100 MG in SODIUM CHLORIDE 0.9% 230 ML IV SCH (11:19)
[2021-07-29] MEDS ORDERED: POLYETHYLENE (MIRALAX) 17 GM PACK PO PRN (12:51)
--- NOTE | 2021-07-29 13:22 | Electrocardiogram Report ---
Test Reason : Blood Pressure : / mmHG Vent. Rate : 081 BPM Atrial Rate : 081 BPM P-R Int : 148 ms QRS Dur : 078 ms QT Int : 368 ms P-R-T Axes : 043 011 026 degrees QTc Int : 427 ms Poor data quality, interpretation may be adversely affected Normal sinus rhythm Possible Left atrial enlargement Borderline ECG When compared with ECG of 29-MAR-2019 14:58, No significant change was found Confirmed by Bart Fox ([id number]) on 07/29/2021 1:22:08 PM Referred By: Ismael Eddy Confirmed By:Bart Fox
[2021-07-29] MEDS: ALPRAZolam 0.5 MG TABLET PO PRN ×2 (13:51→20:23)
--- NOTE | 2021-07-29 14:17 | Hospitalist Progress Note ---
Date of Service July 29, 2021 Assessment & Plan (1) 2019 novel coronavirus-infected pneumonia (NCIP): Plan: 55yo male with history of HTN, anxiety, previous alcohol use disorder, with Covid-19 infection, hypoxia. He is on day 7-8 of illness at the time of admissi on. He was febrile at presentation. Saturations on RA <94% and upper 80's with ambulation. He is not vaccinated against Covid-19. Remains on 2 L nasal cannula today, still with dyspnea on exertion and cough -Continued stay on Covid precautions -Supplemental O2 as needed to maintain saturations >92% -Dexamethasone 6mg IV daily x10-day course -Remdesevir x 5 day protocol - monitor labs daily -Tylenol, Zofran and Tessalon as needed -Continue albuterol and ipratropium as needed -Continue Mucinex -Continue incentive spirometry and add flutter valve (2) HTN (hypertension): Plan: Chronic. BP controlled -Continue Labetalol 200mg po qAM -Monitor (3) Depression: Plan: Chronic -Continue Alprazolam PRN anxiety -Continue Sertraline 200mg po qam -Patient denies current alcohol use, but does have a history of alcohol use disorder-watch for withdrawal (4) Asthma: Plan: Chronic -Continue Combivent -Albuterol PRN Plan: DVT prophylaxis-Lovenox SQ Disposition-continued stay on medical/surgical Covid humph[facility] Admission and Anticipated Discharge Date Admission Date: July 28, 2021 Subjective Still feels short of breath with minimal exertion here. Remains on 2 L nasal cannula. Feels like he is shaky and anxious. He does have a history of alcohol withdrawal in the past, but denies alcohol use recently. He is agreeable to taking Xanax which she states he usually takes a few times a week. Denies any other new issues at this time Review of Systems Review of Systems: All systems reviewed & are unremarkable except as noted in HPI & below Physical Exam Constitutional: WD/WN, vitals as above Eyes: + anicteric sclerae Neck: trachea midline, no thyromegaly Respiratory: normal respiratory effort and + cough Auscultation: + crackles (Bilateral lower and middle lung maradiaga); no rhonchi and no wheezes Cardiovascular: RRR, no murmur, no edema Chest (Breasts): Chest: normal inspection of chest Gastrointestinal (Abdomen): normal bowel sounds, soft, nontender, no hepatosplenomegaly Musculoskeletal: Extremities: extremities normal to inspection; no cyanosis and no clubbing Skin: no rashes, warm and dry Neurologic: moves all extremities and awake; no focal motor deficits Psychiatric: Orientation: alert, oriented x 3 and cooperative Affect: + anxious affect Lymphatic: no lymphedema Results & Data Results & Data ([facility]) Vital Signs (Past 12 Hours) Vital Signs Temp Pulse Resp BP Pulse Ox 07/29/21 07:35 36.5 C 66 18 137/79 94 Laboratory Results 07/29/21 07/29/21 Range/Units 05:29 05:29 WBC 7.98 (4.8-10.8) K/uL RBC 4.68 L (4.7-6.1) M/uL Hgb 14.0 (14.0-18.0) g/dL Hct 41.5 L (42-52) % MCV 88.7 (80-100) fL MCH 29.9 (25-34) pg MCHC 33.7 (32-36) g/dL RDW Std Deviation 43.9 (36.4-46.3) fL RDW Coeff of Ashish 13.5 (11.5-14.5) % Plt Count 248 (130-400) K/uL MPV 9.4 (7.4-10.4) fL Immature Gran % (Auto) 0.4 % Neut % (Auto) 79.4 % Lymph % (Auto) 10.4 % [place] % (Auto) 9.6 % Eos % (Auto) 0.1 % Baso % (Auto) 0.1 % Neut # (Auto) 6.33 (1.4-6.5) K/uL Lymph # (Auto) 0.83 L (1.2-3.4) K/uL [place] # (Auto) 0.77 H (0.11-0.59) K/uL Eos # (Auto) 0.01 (0-0.5) K/uL Baso # (Auto) 0.01 (0-0.2) K/uL Immature Gran # (Auto) 0.03 H (0.00-0.02) K/uL Sodium 138 (136-145) mmol/L Potassium 4.0 (3.5-5.1) mmol/L Chloride 108 H (98-107) mmol/L Carbon Dioxide 27 (21-32) mmol/L Anion Gap 3.0 (3-11) BUN 16 (7-18) mg/dl Creatinine 0.79 (0.6-1.4) mg/dl Est Cr Clr Drug Dosing 134.9 ml/min Est GFR ( Amer) 115.5 ml/min Est GFR (Non-Af Amer) 99.7 ml/min BUN/Creatinine Ratio 20.9 H (10-20) Glucose 167 H (70-99) mg/dl Calcium 8.9 (8.5-10.1) mg/dl Total Bilirubin 0.4 (0.2-1) mg/dl Direct Bilirubin 0.2 (0-0.2) mg/dl AST 19 (15-37) U/L ALT 41 (12-78) Alkaline Phosphatase 66 (45-117) U/L C-Reactive Protein 3.93 H (0-0.29) mg/dl Total Protein 6.9 (6.4-8.2) gm/dl Albumin 3.0 L (3.4-5.0) gm/dl PG Care Time/CCT Total # of Minutes Spent Total Time Spent with Patient: Total time spent is greater than 50% in coordination of care (as documented) at patient's floor/unit and/or counseling patient: Coding Level of Care Code 29830 Subseq Hosp Care Lvl 2 Diagnoses 2019 novel coronavirus-infected pneumonia (NCIP) U07.1; J12.82 HTN (hypertension) I10 Depression F32.9 Asthma J45.909
[2021-07-30] MEDS: ENOXAPARIN INJ 40 MG/0.4 ML SYR SQ SCH ×2 (06:03→15:45)
[2021-07-30 07:02] LABS: Basophils # (auto) 0.01 K/uL (0-0.2); Basophils % (auto) 0.1 %; Eosinophils # (auto) 0.03 K/uL (0-0.5); Eosinophils % (auto) 0.3 %; Hematocrit (blood only) 43.7 % (42-52); Hemoglobin 15.1 g/dL (14.0-18.0); Immature Granulocytes # (auto) 0.05 K/uL (0.00-0.02); Immature Granulocytes % (auto) 0.5 %; Lymphocytes # (auto) 1.31 K/uL (1.2-3.4); Lymphocytes % (auto) 14.1 %; Mean Corpuscular Hemoglobin 30.8 pg (25-34); Mean Corpuscular Hgb Conc 34.6 g/dL (32-36); Mean Corpuscular Volume 89.2 fL (80-100); Mean Platelet Volume 9.2 fL (7.4-10.4); Monocytes # (auto) 0.95 K/uL (0.11-0.59); Monocytes % (auto) 10.2 %; Neutrophils # (auto) 6.96 K/uL (1.4-6.5); Neutrophils % (auto) 74.8 %; Platelet Count 309 K/uL (130-400); RDW Coefficient of Variation 13.5 % (11.5-14.5); RDW Standard Deviation 44.4 fL (36.4-46.3); White Blood Count 9.31 K/uL (4.8-10.8)
[2021-07-30] MEDS: guaiFENesin 600 MG TABCR PO SCH ×2 (07:16→20:55)
[2021-07-30] MEDS: SERTRALINE HCL 100 MG TABLET PO SCH (07:16)
[2021-07-30] MEDS: BENZONATATE 100 MG CAPSULE PO SCH ×3 (07:16→20:55)
[2021-07-30] MEDS: LABETALOL HCL 200 MG TAB PO SCH (07:16)
[2021-07-30] MEDS: dexAMETHasone 6 MG in SYRINGE 0 ML IV SCH (07:17)
[2021-07-30 07:34] LABS: Albumin Level 3.1 gm/dl (3.4-5.0); BUN Creatinine Ratio 20.2 (10-20); C Reactive Protein 1.43 mg/dl (0-0.29); Calcium 8.5 mg/dl (8.5-10.1); Creatinine Clr Calc Pharmacy 138.4 ml/min; Est GFR (African American) 116.8 ml/min; Est GFR (Non-African American) 100.7 ml/min; Potassium 4.1 mmol/L (3.5-5.1)
[2021-07-30 07:37] LABS: Albumin Globulin Ratio 0.8 (0.9-2); Bilirubin,Total 0.5 mg/dl (0.2-1); Globulin 3.8 gm/dl (2.5-4.0); Total Protein 6.9 gm/dl (6.4-8.2)
[2021-07-30] MEDS: ONDANSETRON INJ 2 MG/ML 2 ML VIAL IV PRN (08:02)
[2021-07-30] MEDS: REMDESIVIR 100 MG in SODIUM CHLORIDE 0.9% 230 ML IV SCH (11:10)
[2021-07-30] MEDS: SODIUM CHLORIDE 0.9% 10ML FLUSH IV SCH (11:10)
--- NOTE | 2021-07-30 15:13 | Hospitalist Progress Note ---
Date of Service July 30, 2021 Assessment & Plan (1) 2019 novel coronavirus-infected pneumonia (NCIP): Plan: 55yo male with history of HTN, anxiety, previous alcohol use disorder, with Covid-19 infection, hypoxia. He is not vaccinated against Covid-19. -X ray shows evidence of infiltrates Started on Decadron and Remdesivir Inflammatory markers are trending down Continue PRN tylenol for fevers On 2L of oxygen, wean as tolerated (2) HTN (hypertension): Plan: BP under good control continue home meds (3) Depression: Plan: Chronic -Continue Alprazolam PRN anxiety -Continue Sertraline 200mg po qam -Patient denies current alcohol use, but does have a history of alcohol use disorder-watch for withdrawal (4) Asthma: Plan: Chronic -Continue Combivent -Albuterol PRN (5) Tremor: Plan: Some tremors on exam not sure if its due to alcohol withdrawal, will monitor Plan: DVT prophylaxis-Lovenox SQ Disposition-continued stay on medical/surgical Covid humphrey Admission and Anticipated Discharge Date Admission Date: July 28, 2021 Subjective Patient seen and examined, says SOB is much better, has some tremor Review of Systems Review of Systems: All systems reviewed are negative, apart from the ones contained in the history. Physical Exam Physical Exam: The patient is awake, alert and oriented �3, well developed and well nourished, normocephalic and atraumatic, lying in bed and in no acute distress. HEENT--PERRL, EOMI, mucous membranes and oropharynx mildly dry Neck--supple.� No JVD. No bruits. Thyroid normal, trachea midline, no adenopathy. Heart--normal S1 and S2.� No murmurs, rubs or gallops. Lungs--clear bilaterally, no respiratory distress, no accessory muscle use. Abdomen--normal bowel sounds and soft.� Mild epigastric and left sided abdominal pain Extremities--no cyanosis or clubbing. No edema. Dermatologic--normal skin turgor, normal color, no abnormal lymph nodes, no rash. Neurologic--cranial nerves II through XII grossly intact. tremors Rheumatologic--normal range of motion. Psychiatric--normal affect. Results & Data Results & Data ([facility]) Vital Signs (Past 12 Hours) Vital Signs Temp Pulse Resp BP Pulse Ox 07/30/21 14:26 98.6 F 69 16 130/64 95 07/30/21 07:57 98.1 F 61 16 127/82 94 Laboratory Results Laboratory Results - last 24 hr 07/30/21 07/30/21 06:27 06:27 WBC 9.31 RBC 4.90 Hgb 15.1 Hct 43.7 MCV 89.2 MCH 30.8 MCHC 34.6 RDW Std Deviation 44.4 RDW Coeff of Ashish 13.5 Plt Count 309 MPV 9.2 Immature Gran % (Auto) 0.5 Neut % (Auto) 74.8 Lymph % (Auto) 14.1 [place] % (Auto) 10.2 Eos % (Auto) 0.3 Baso % (Auto) 0.1 Neut # (Auto) 6.96 H Lymph # (Auto) 1.31 [place] # (Auto) 0.95 H Eos # (Auto) 0.03 Baso # (Auto) 0.01 Immature Gran # (Auto) 0.05 H Sodium 142 Potassium 4.1 Chloride 109 H Carbon Dioxide 27 Anion Gap 5.0 BUN 16 Creatinine 0.77 Est Cr Clr Drug Dosing 138.4 Est GFR ( Amer) 116.8 Est GFR (Non-Af Amer) 100.7 BUN/Creatinine Ratio 20.2 H Glucose 126 H Calcium 8.5 Total Bilirubin 0.5 AST 14 L ALT 38 Alkaline Phosphatase 64 C-Reactive Protein 1.43 H Total Protein 6.9 Albumin 3.1 L Globulin 3.8 Albumin/Globulin Ratio 0.8 L PG Care Time/CCT Total # of Minutes Spent Total Time Spent with Patient: Total time spent is greater than 50% in coordination of care (as documented) at patient's floor/unit and/or counseling patient: Coding Level of Care Code 03713 Subseq Hosp Care Lvl 2 Diagnoses 2019 novel coronavirus-infected pneumonia (NCIP) U07.1; J12.82 HTN (hypertension) I10 Depression F32.9 Asthma J45.909 Tremor R25.1 Time Spent (min) 35
[2021-07-30] MEDS: ALPRAZolam 0.5 MG TABLET PO PRN (15:45)
[2021-07-31] MEDS: ALPRAZolam 0.5 MG TABLET PO PRN ×2 (00:41→22:29)
[2021-07-31] MEDS: ENOXAPARIN INJ 40 MG/0.4 ML SYR SQ SCH ×2 (05:57→18:30)
[2021-07-31 07:16] LABS: Est GFR (Non-African American) 103.6 ml/min
[2021-07-31] MEDS: ONDANSETRON INJ 2 MG/ML 2 ML VIAL IV PRN ×2 (08:50→18:28)
[2021-07-31] MEDS: SERTRALINE HCL 100 MG TABLET PO SCH (08:52)
[2021-07-31] MEDS: dexAMETHasone 6 MG in SYRINGE 0 ML IV SCH (08:52)
[2021-07-31] MEDS: LABETALOL HCL 200 MG TAB PO SCH (08:52)
[2021-07-31] MEDS: guaiFENesin 600 MG TABCR PO SCH ×2 (08:52→20:01)
[2021-07-31] MEDS: BENZONATATE 100 MG CAPSULE PO SCH ×3 (08:56→20:01)
[2021-07-31 09:22] LABS: BUN Creatinine Ratio 18.7 (10-20); C Reactive Protein 1.84 mg/dl (0-0.29); Calcium 8.3 mg/dl (8.5-10.1); Creatinine Clr Calc Pharmacy 145.9 ml/min; Est GFR (African American) 119.3 ml/min; Potassium 4.1 mmol/L (3.5-5.1)
[2021-07-31] MEDS: SODIUM CHLORIDE 0.9% 10ML FLUSH IV SCH (11:35)
[2021-07-31] MEDS: REMDESIVIR 100 MG in SODIUM CHLORIDE 0.9% 230 ML IV SCH (11:35)
--- NOTE | 2021-07-31 15:02 | Hospitalist Progress Note ---
Date of Service July 31, 2021 Assessment & Plan (1) 2019 novel coronavirus-infected pneumonia (NCIP): Plan: 55yo male with history of HTN, anxiety, previous alcohol use disorder, with Covid-19 infection, hypoxia. He is not vaccinated against Covid-19. -X ray shows evidence of infiltrates Started on Decadron and Remdesivir Inflammatory markers are trending down Continue PRN tylenol for fevers Still On 2L of oxygen, wean as tolerated (2) HTN (hypertension): Plan: BP under good control, 135/72 today continue home meds (3) Depression: Plan: Chronic -Continue Alprazolam PRN anxiety -Continue Sertraline 200mg po qam -Patient denies current alcohol use, but does have a history of alcohol use disorder-watch for withdrawal (4) Asthma: Plan: Chronic -Continue Combivent -Albuterol PRN (5) Tremor: Plan: Some tremors on exam, improving not sure if its due to alcohol withdrawal, will monitor Plan: DVT prophylaxis-Lovenox SQ Disposition-continued stay on medical/surgical Covid humphrey Admission and Anticipated Discharge Date Admission Date: July 28, 2021 Subjective Patient seen and examined, says SOB is much better, tremor also better Review of Systems Review of Systems: All systems reviewed are negative, apart from the ones contained in the history. Physical Exam Physical Exam: The patient is awake, alert and oriented �3, well developed and well nourished, normocephalic and atraumatic, lying in bed and in no acute distress. HEENT--PERRL, EOMI, mucous membranes and oropharynx mildly dry Neck--supple.� No JVD. No bruits. Thyroid normal, trachea midline, no adenopathy. Heart--normal S1 and S2.� No murmurs, rubs or gallops. Lungs--clear bilaterally, no respiratory distress, no accessory muscle use. Abdomen--normal bowel sounds and soft.� Mild epigastric and left sided abdominal pain Extremities--no cyanosis or clubbing. No edema. Dermatologic--normal skin turgor, normal color, no abnormal lymph nodes, no rash. Neurologic--cranial nerves II through XII grossly intact. tremors Rheumatologic--normal range of motion. Psychiatric--normal affect. Results & Data Results & Data ([facility]) Vital Signs (Past 12 Hours) Vital Signs Temp Pulse Resp BP Pulse Ox 07/31/21 14:43 98.4 F 69 17 135/72 95 07/31/21 11:41 90 07/31/21 10:29 94 07/31/21 07:41 98.6 F 60 16 130/83 92 PG Care Time/CCT Total # of Minutes Spent Total Time Spent with Patient: Total time spent is greater than 50% in coordination of care (as documented) at patient's floor/unit and/or counseling patient: Coding Level of Care Code 56217 Subseq Hosp Care Lvl 2 Diagnoses 2019 novel coronavirus-infected pneumonia (NCIP) U07.1; J12.82 HTN (hypertension) I10 Depression F32.9 Asthma J45.909 Tremor R25.1 Time Spent (min) 35
[2021-08-01] MEDS: ENOXAPARIN INJ 40 MG/0.4 ML SYR SQ SCH (05:44)
[2021-08-01 07:17] LABS: BUN Creatinine Ratio 18.3 (10-20); C Reactive Protein 1.63 mg/dl (0-0.29); Calcium 8.7 mg/dl (8.5-10.1); Creatinine Clr Calc Pharmacy 150.1 ml/min; Est GFR (African American) 120.7 ml/min; Est GFR (Non-African American) 104.2 ml/min; Potassium 4.2 mmol/L (3.5-5.1)
[2021-08-01 07:22] LABS: Ferritin 302.7 ng/ml (8-388)
[2021-08-01] MEDS: guaiFENesin 600 MG TABCR PO SCH (09:10)
[2021-08-01] MEDS: dexAMETHasone 6 MG in SYRINGE 0 ML IV SCH (09:10)
[2021-08-01] MEDS: BENZONATATE 100 MG CAPSULE PO SCH ×2 (09:10→13:23)
[2021-08-01] MEDS: LABETALOL HCL 200 MG TAB PO SCH (09:10)
[2021-08-01] MEDS: SERTRALINE HCL 100 MG TABLET PO SCH (09:10)
[2021-08-01] MEDS: REMDESIVIR 100 MG in SODIUM CHLORIDE 0.9% 230 ML IV SCH (11:29)
[2021-08-01] MEDS: SODIUM CHLORIDE 0.9% 10ML FLUSH IV SCH (11:30)
--- NOTE | 2021-08-01 15:21 | Discharge Summary ---
Date of Service August 01, 2021 Admission HPI Per Admitting Provider Thomas Jefferson is a 55yo male with history of asthma, depression and hypertension presenting with Covid-19 PNA, hypoxia. Patient has been feeling ill x 7-8 days - complaining of cough, fever, chills, myalgias, body aches, weakness and fatigue. He also has upper chest discomfort following cough and MARSH, SOB and CAT. Patient is not vaccinated against Covid. His mother was recently hospitalized briefly with Covid and is now at home recovering. Saturations of 90 - 92% on room air which decrease to upper 80's with ambulation. Patient becomes very dyspneic with ambulation. ER Course: Acetaminophen, Dexamethasone, NSS Principal Diagnosis covid 19 pna Discharge Exam The patient is awake, alert and oriented �3, well developed and well nourished, normocephalic and atraumatic, lying in bed and in no acute distress. HEENT--PERRL, EOMI, mucous membranes and oropharynx mildly dry Neck--supple.� No JVD. No bruits. Thyroid normal, trachea midline, no adenopathy. Heart--normal S1 and S2.� No murmurs, rubs or gallops. Lungs--clear bilaterally, no respiratory distress, no accessory muscle use. Abdomen--normal bowel sounds and soft.� Mild epigastric and left sided abdominal pain Extremities--no cyanosis or clubbing. No edema. Dermatologic--normal skin turgor, normal color, no abnormal lymph nodes, no tj h. Neurologic--cranial nerves II through XII grossly intact. tremors Rheumatologic--normal range of motion. Psychiatric--normal affect. Discharge Data Allergies Allergy/AdvReac Type Severity Reaction Status Date / Time No Known Allergies Allergy Verified 07/27/21 23:57 Consultations 07/28/21 00:28 ED Decision to Admit Stat Hospital Course (1) 2018 novel coronavirus-infected pneumonia (NCIP): 55yo male with history of HTN, anxiety, previous alcohol use disorder, with Covid-19 infection, hypoxia. He is not vaccinated against Covid-19. -X ray shows evidence of infiltrates Started on Decadron and Remdesivir Inflammatory markers are trending down Continue PRN tylenol for fevers Patient was weaned down to room air Discharged home on PO decadron after passing the 2 step home oxygen eval which determined he did not need oxygen at home (2) HTN (hypertension): BP under good control, 135/72 today continue home meds (3) Depression: Chronic -Continue Alprazolam PRN anxiety -Continue Sertraline 200mg po qam -Patient denies current alcohol use, but does have a history of alcohol use di sorder-watch for withdrawal (4) Asthma: Chronic -Continue Combivent -Albuterol PRN (5) Tremor: Some tremors on exam, improving not sure if its due to alcohol withdrawal, will monitor DVT prophylaxis-Lovenox SQ Disposition-continued stay on medical/surgical Covid humphrey Total Time Total Time Spent Total Time Spent (In Minutes): 35 Discharge Plan Discharge Items Patient Disposition: Home - Self-Care Reason For Visit: COVID-19, HYPOXIC Discharge Diagnosis: covid 19 pna Condition on Discharge: Good Activity: Resume your previous activity Non-emergency contact: Primary Care Provider Call non-emergency contact if: you have any medication questions and your symptoms worsen Follow-up/Referrals: Ismael Eddy MD [Primary Care Provider] - Diet: Regular Addtl Attending Provider Instructions: please make appointment to follow up with your PCP Pending Studies at Discharge: No Stand-Alone Forms: My [employer], Smoking Cessation Medications and DC Order Prescriptions: New dexamethasone 6 mg tablet 6 mg PO DAILY Qty: 5 RF: 0 Continued Combivent Respimat 20-100 mcg/actuation Mist 1 puff INHALATION QID PRN (Reason: SOB) RF: 0 labetalol 200 mg tablet 200 mg PO QAM RF: 0 sertraline 100 mg tablet 200 mg PO QAM RF: 0 alprazolam 0.25 mg tablet 0.25 mg PO QID PRN (Reason: Anxiety) RF: 0 multivitamin Tablet 1 tab PO DAILY RF: 0 ascorbic acid (vitamin C) [Vitamin C] 500 mg Tablet 500 mg PO DAILY RF: 0 vitamin E 400 unit Capsule 400 unit PO DAILY RF: 0 cholecalciferol (vitamin D3) [Vitamin D3] 25 mcg (1,000 unit) Tablet 25 mcg PO DAILY RF: 0 Discharge Orders: Discharge Order (Routine); Ordered 08/01/21 Ordered By: Mani Faustin Admission Data Admit Date/Time: 07/28/21 01:20 Attending Provider: Mani Faustin Provider: Amalia Prieto Primary Care Provider: Ismael Eddy Other Providers: Amalia Prieto Coding Level of Care Code D/C DAY MANAGEMENT >30 MINS Diagnoses 2019 novel coronavirus-infected pneumonia (NCIP) U07.1; J12.82 HTN (hypertension) I10 Depression F32.9 Asthma J45.909 Tremor R25.1
== END 2021-08-01 16:40 | disposition home or self-care (01) ==
LOC: ED 22:37 → SUATTDRO 07-28 01:20 → EDINP 07-28 03:44 → 3W 07-28 21:14

== ENCOUNTER 2022-01-09 22:36 | Inpatient (IN) ==
[2022-01-09] MEDS ORDERED: ONDANSETRON INJ 2 MG/ML 2 ML VIAL IV STA (23:05)
[2022-01-09] MEDS ORDERED: ACETAMINOPHEN 1000 MG/100 ML IV IV ONE (23:06)
[2022-01-09 23:08] LABS: iSTAT Creatinine 0.7 mg/dl (0.6-1.3); iSTAT Hemoglobin 14.6 g/dl (14.0-18.0); iSTAT Ionized Calcium 1.05 mmol/l (1.12-1.32); iSTAT Potassium 4.7 mmol/L (3.3-5.0)
[2022-01-09 23:08] LABS: Basophils # (auto) 0.03 K/uL (0-0.2); Basophils % (auto) 0.4 %; Eosinophils # (auto) 0.08 K/uL (0-0.5); Eosinophils % (auto) 1.1 %; Hematocrit (blood only) 40.4 % (42-52); Hemoglobin 13.8 g/dL (14.0-18.0); Immature Granulocytes # (auto) 0.02 K/uL (0.00-0.02); Immature Granulocytes % (auto) 0.3 %; Lymphocytes # (auto) 0.79 K/uL (1.2-3.4); Lymphocytes % (auto) 10.7 %; Mean Corpuscular Hemoglobin 30.7 pg (25-34); Mean Corpuscular Hgb Conc 34.2 g/dL (32-36); Mean Platelet Volume 9.8 fL (7.4-10.4); Monocytes # (auto) 0.48 K/uL (0.11-0.59); Monocytes % (auto) 6.5 %; Platelet Count 205 K/uL (130-400); RDW Coefficient of Variation 13.6 % (11.5-14.5); Red Blood Count 4.49 M/uL (4.7-6.1)
[2022-01-09] MEDS ORDERED: SODIUM CHLORIDE 0.9% 1000ML 1,000 ML IV ONE (23:10)
--- NOTE | 2022-01-09 23:10 | Emergency Department Note ---
History of Present Illness General Chief complaint: Abdominal Pain Stated complaint: Abd Pain, Fever, hx diverticulitis Time Seen by Provider: 01/09/22 22:51 History of Present Illness Maximum Pain Intensity: 10 56-year-old male presents emergency department with 3-day history of lower ab dominal pain and fever with nausea. Patient states decreased p.o. intake. Patient of note had a recent infection with diverticulitis and was on antibiotics for 10 days approximately 2 weeks ago. Patient states that the pain is diffuse its in the lower quadrants is nonradiating. There are no other mitigating or alleviating factors Home Medications Medication Instructions Recorded Confirmed Type ipratropium 20 mcg-albuterol 100 1 puff INHALATION QID PRN 03/21/19 01/10/22 History mcg/actuation mist for inhalation (Combivent Respimat) labetalol 200 mg tablet 200 mg PO QAM 06/03/19 01/10/22 History sertraline 100 mg tablet 200 mg PO QAM 06/03/19 01/10/22 History alprazolam 0.25 mg tablet 0.25 mg PO QID PRN 07/27/21 01/10/22 History ascorbic acid (vitamin C) 500 mg 500 mg PO DAILY 07/27/21 01/10/22 History tablet (Vitamin C) cholecalciferol (vitamin D3) 25 25 mcg PO DAILY 07/27/21 01/10/22 History mcg (1,000 unit) tablet (Vitamin D3) multivitamin 1 tab PO DAILY 07/27/21 01/10/22 History vitamin E 400 unit capsule 400 unit PO DAILY 07/27/21 01/10/22 History acetaminophen 500 mg tablet 1,000 mg PO Q6H PRN 01/10/22 01/10/22 History (Tylenol Extra Strength) budesonide-formoterol HFA 160 2 puff INHALATION BID 01/10/22 01/10/22 History mcg-4.5 mcg/actuation aerosol inhaler (Symbicort) ibuprofen 200 mg tablet 600 mg PO Q6H PRN 01/10/22 01/10/22 History naproxen sodium 220 mg tablet 220 mg PO Q12H PRN 01/10/22 01/10/22 History (Aleve) Allergies Allergy/AdvReac Type Severity Reaction Status Date / Time No Known Allergies Allergy Verified 01/10/22 00:12 Past Med/Surg History Medical History Asthma Depression Diverticular disease hx diverticular perforation s/p bowel resection/colostomy/colostomy reversal History of pneumonia Many years ago, was in hospital for bowel perforation and developed HAP. Hypertension Surgical History Fusion of spine C3-C5 "FULL ROM" H/O wrist surgery RIGHT History of appendectomy History of arthroscopy right knee arthroscopy: 03/29/19: LMA#5 History of bowel resection With colostomy, for bowel perforation. History of bronchoscopy History of colonoscopy History of colostomy History of colostomy reversal History of detached retina repair LEFT History of herniorrhaphy open abdominal hernia x8 with mesh. History of total knee replacement LEFT; 01/06/18 [facility] -- SAB + regional block both x 1 attempt History of total right knee replacement (~08/2019) Family History Other No known health problems Social History Smoking Status: Never smoker Second Hand Exposure: No; Hx Alcohol Use: Yes Alcohol type: beer Hx Substance Use: No Preferred Language: German Communication Ability: Effective Cook Pressure Required: No Beliefs That Will Affect Care: None marital status: Current Living Situation: Family Feels Safe at Home: Yes Assistive Devices: Oxygen - Continuous Review of Systems A total of 10 systems reviewed and were otherwise negative Constitutional: + fever Cardiovascular: no chest pain Gastrointestinal: + abdominal pain, + nausea and + vomiting Physical Exam Vital Signs Vital Signs - 24 hr 01/09/22 22:42 01/09/22 22:46 01/09/22 23:20 Temperature 39.4 C H 39.4 C H Temperature Source Oral Oral Pulse Rate 92 H Pulse Rate [Right Finger] 90 Respiratory Rate 25 H 25 H 25 H Respiratory Effort / Characteristics Non-Labored Respiratory Depth Normal Blood Pressure 141/89 H Blood Pressure [Right Arm] 130/77 Blood Pressure Mean 106 Blood Pressure Mean [Right Arm] 94 Pulse Oximetry 94 93 92 Oxygen Delivery Method Room Air Room Air Oxygen Flow Rate Sepsis Recent Fever Within 48 Hours Yes Sepsis New/Unexplained Change in Mental Status No Sepsis Action Taken by Nursing No Action Required 01/10/22 00:26 Temperature 38.3 C H Temperature Source Oral Pulse Rate Pulse Rate [Right Finger] 80 Respiratory Rate 22 Respiratory Effort / Characteristics Respiratory Depth Blood Pressure Blood Pressure [Right Arm] 127/76 Blood Pressure Mean Blood Pressure Mean [Right Arm] 93 Pulse Oximetry 94 Oxygen Delivery Method Nasal Cannula Oxygen Flow Rate 2 Sepsis Recent Fever Within 48 Hours Sepsis New/Unexplained Change in Mental Status Sepsis Action Taken by Nursing VITAL SIGNS - Vital signs and nursing notes were reviewed. GENERAL -No acute distress. Communicates well with provider and answers questions appropriately. SKIN - Without rashes. HEAD - NC/AT. EYES - PERRL with EOMI bilaterally. Sclera anicteric. Palpebral conjunctiva pink and moist with no injection noted. EARS - No deformities of external structures noted on gross examination bilaterally. NOSE - Midline and without cyanosis. No epistaxis or purulent drainage noted. Septum midline without deviation or septal hematoma noted. MOUTH/OROPHARYNX - Without perioral cyanosis. Buccal mucosa pink and moist and without leukoplakia. Tongue midline with equal elevation of palate bilaterally. No tonsillar hypertrophy, erythema, or exudates noted. . NECK - Neck with FROM. Supple to palpation. LUNGS - Chest wall symmetric without accessory muscle use, intercostals retractions, or central cyanosis. Normal vesicular breath sounds CTA B/L. No wheezes, rales, or rhonchi appreciated. CARDIAC - RRR with S1/S2. No murmur, rubs, or gallops appreciated. ABDOMEN - Abdominal contoursoft without pulsations or visible masses. BS normoactive all four quadrants. No palpable masses, hepatosplenomegaly, or ascites noted. Patient has a large midline surgical scar present he has a surgical scar in the left lower quadrant there is no palpable hernias there is some mild tenderness in the right lower quadrant and left lower quadrant there is no rebound rigidity guarding EXTREMITIES - No clubbing or peripheral cyanosis. No pretibial edema present. +5/5 strength noted in UE/LE bilaterally. NEUROLOGIC - Cranial nerves II through XII grossly intact. PSYCH - A&Ox3 and cooperates fully with examiner. Pt is very pleasant and interacts well with examiner. Course Reevaluation(s) Reevaluation #1: Patient was given IV Tylenol, Zofran, IV fluids, antibiotics which were changed by the hospitalist to cefepime. Case was discussed with the hospitalist. Patient will be admitted for right lower lobe pneumonia; patient is not in septic shock at the time of disposition Time: 00:46 Administered Medications Discontinued Medications Acetaminophen (Acetaminophen 1000 Mg/100 Ml Iv) 1,000 mg IV ONCE ONE Stop: 01/09/22 23:07 Last Admin: 01/09/22 23:21 Dose: 1,000 mg Documented by: [id number] Sodium Chloride (Nss 1000ml) 1,000 mls @ 999 mls/hr IV .Q1H1M ONE Stop: 01/10/22 00:10 Last Infusion: 01/10/22 00:18 Dose: 0 mls/hr Documented by: [id number] Admin: 01/09/22 23:21 Dose: 999 mls/hr Documented by: [id number] Ceftriaxone Sodium (Rocephin) 1,000 mg in 50 mls @ 100 mls/hr IV NOW STA Stop: 01/10/22 00:50 Last Admin: 01/10/22 00:37 Dose: 100 mls/hr Documented by: [id number] Ioversol (Optiray 320 100ml) 94 ml IV ONCE ONE Stop: 01/09/22 23:12 Last Admin: 01/09/22 23:13 Dose: 94 ml Documented by: [id number] Ondansetron HCl (Ondansetron Inj 2 Mg/Ml 2 Ml Vial) 4 mg IV NOW STA Stop: 01/09/22 23:06 Last Admin: 01/09/22 23:21 Dose: 4 mg Documented by: [id number] Medical Decision Making Medical Records Attestation: I reviewed the patient's medical records. Laboratory Data Attestation: I reviewed the patient's lab results. Result diagrams: 01/09/22 22:50 01/09/22 22:50 Lab Results 01/09/22 01/09/22 01/09/22 Range/Units 22:50 22:50 22:50 WBC 7.40 (4.8-10.8) K/uL RBC 4.49 L (4.7-6.1) M/uL Hgb 13.8 L (14.0-18.0) g/dL POC Hgb (14.0-18.0) g/dl Hct 40.4 L (42-52) % POC Hct (42-52) % MCV 90.0 (80-100) fL MCH 30.7 (25-34) pg MCHC 34.2 (32-36) g/dL RDW Std Deviation 45.0 (36.4-46.3) fL RDW Coeff of Ashish 13.6 (11.5-14.5) % Plt Count 205 (130-400) K/uL MPV 9.8 (7.4-10.4) fL Immature Gran % (Auto) 0.3 % Neut % (Auto) 81.0 % Lymph % (Auto) 10.7 % Hyde % (Auto) 6.5 % Eos % (Auto) 1.1 % Baso % (Auto) 0.4 % Neut # (Auto) 6.00 (1.4-6.5) K/uL Lymph # (Auto) 0.79 L (1.2-3.4) K/uL Hyde # (Auto) 0.48 (0.11-0.59) K/uL Eos # (Auto) 0.08 (0-0.5) K/uL Baso # (Auto) 0.03 (0-0.2) K/uL Immature Gran # (Auto) 0.02 (0.00-0.02) K/uL PT 11.3 (9.0-12.0) Seconds INR 1.1 (0.9-1.1) APTT 30.7 (21.0-31.0) Seconds PTT Ratio 1.1 POC Sodium (135-144) mmol/L Sodium 133 L (136-145) mmol/L POC Potassium (3.3-5.0) mmol/L Potassium 4.5 (3.5-5.1) mmol/L POC Chloride (101-112) mmol/L Chloride 103 (98-107) mmol/L Carbon Dioxide 23 (21-32) mmol/L POC Total CO2 (24-31) mmol/L Anion Gap 7 (3-11) POC Anion Gap (16-25) mmol/L POC BUN (7-18) mg/dl BUN 10 (6-23) mg/dl Creatinine 0.72 (0.6-1.4) mg/dl POC Creatinine (0.6-1.3) mg/dl Est Cr Clr Drug Dosing 162.8 ml/min Est GFR ( Amer) 119.2 ml/min Est GFR (Non-Af Amer) 102.8 ml/min BUN/Creatinine Ratio 13.9 (10-20) Glucose 102 H (70-99(Fasting)) mg/dl POC Glucose (other) (70-99) mg/dl Lactate (0.4-2.0) mmol/L Calcium 8.2 L (8.5-10.1) mg/dl POC Ioniz Calcium Aaliyah (1.12-1.32) mmol/l Magnesium 1.8 (1.7-2.4) mg/dl Total Bilirubin 0.6 (0.2-1.0) mg/dl AST 26 (13-39) U/L ALT 25 (7-52) U/L Alkaline Phosphatase 46 (34-104) U/L Total Protein 5.9 L (6.0-8.3) gm/dl Albumin 3.6 (3.4-5.0) gm/dl Globulin 2.3 L (2.5-4.0) gm/dl Albumin/Globulin Ratio 1.6 (0.9-2) SARS-CoV-2, RNA, NAAT (NEGATIVE) 01/09/22 01/09/22 01/09/22 Range/Units 22:56 23:01 23:15 WBC (4.8-10.8) K/uL RBC (4.7-6.1) M/uL Hgb (14.0-18.0) g/dL POC Hgb 14.6 (14.0-18.0) g/dl Hct (42-52) % POC Hct 43 (42-52) % MCV (80-100) fL MCH (25-34) pg MCHC (32-36) g/dL RDW Std Deviation (36.4-46.3) fL RDW Coeff of Ashish (11.5-14.5) % Plt Count (130-400) K/uL MPV (7.4-10.4) fL Immature Gran % (Auto) % Neut % (Auto) % Lymph % (Auto) % Hyde % (Auto) % Eos % (Auto) % Baso % (Auto) % Neut # (Auto) (1.4-6.5) K/uL Lymph # (Auto) (1.2-3.4) K/uL Hyde # (Auto) (0.11-0.59) K/uL Eos # (Auto) (0-0.5) K/uL Baso # (Auto) (0-0.2) K/uL Immature Gran # (Auto) (0.00-0.02) K/uL PT (9.0-12.0) Seconds INR (0.9-1.1) APTT (21.0-31.0) Seconds PTT Ratio POC Sodium 135 (135-144) mmol/L Sodium (136-145) mmol/L POC Potassium 4.7 (3.3-5.0) mmol/L Potassium (3.5-5.1) mmol/L POC Chloride 102 (101-112) mmol/L Chloride (98-107) mmol/L Carbon Dioxide (21-32) mmol/L POC Total CO2 24 (24-31) mmol/L Anion Gap (3-11) POC Anion Gap 14.0 L (16-25) mmol/L POC BUN 10 (7-18) mg/dl BUN (6-23) mg/dl Creatinine (0.6-1.4) mg/dl POC Creatinine 0.7 (0.6-1.3) mg/dl Est Cr Clr Drug Dosing ml/min Est GFR ( Amer) ml/min Est GFR (Non-Af Amer) ml/min BUN/Creatinine Ratio (10-20) Glucose (70-99(Fasting)) mg/dl POC Glucose (other) 105 H (70-99) mg/dl Lactate 0.8 (0.4-2.0) mmol/L Calcium (8.5-10.1) mg/dl POC Ioniz Calcium Aaliyah 1.05 L (1.12-1.32) mmol/l Magnesium (1.7-2.4) mg/dl Total Bilirubin (0.2-1.0) mg/dl AST (13-39) U/L ALT (7-52) U/L Alkaline Phosphatase (34-104) U/L Total Protein (6.0-8.3) gm/dl Albumin (3.4-5.0) gm/dl Globulin (2.5-4.0) gm/dl Albumin/Globulin Ratio (0.9-2) SARS-CoV-2, RNA, NAAT NEGATIVE (NEGATIVE) Imaging Data My Impression: Chest x-ray interpreted by me is right lower lobe infiltrate Radiologist's Impression: * Preliminary Findings Only See Final Report For Complete Findings CT ABDOMEN & PELVIS With Contrast: Comparison: 12/23/2021. Right lower lobe consolidation compatible with pneumonia. Minimal left posterior atelectasis. Normal heart. No pleural effusion. Normal liver. Over distended gallbladder otherwise unremarkable gallbladder and biliary system. Normal spleen and pancreas. Normal bilateral adrenal glands. Normal pancreas. Scarring involving the bilateral kidneys. There is a right mid lower renal pole simple cyst measuring 2.4 cm. Otherwise normal right kidney. Normal left kidney. No hydronephrosis. Minimal atherosclerosis of aorta with no aneurysm or dissection. Unremarkable stomach with no hiatal hernia. Multiple loops of small bowel slightly distended up to 2.6-2.7 cm with multiple air-fluid levels suggestive of malabsorption versus enteritis versus ileus. No significant dilatation to sug gest obstruction. Minimal diverticulosis with no signs of diverticulitis. Appendix not visualized with sutures/clips by the cecum suggestive of prior appendectomy. Normal urinary bladder. Normal size of prostate gland. Degenerative disease of the spine.12:16 AM10 days leftPatient: CORETTA FLORES (Male) : 61 Status: ER12:16 AM10 days left ECG Data Attestation: I personally reviewed and interpreted this ECG as follows: Additional Comments: EKG interpreted by me normal sinus rhythm normal intervals normal axis no obvious ST segment elevation or depression rate is 89 MDM Narrative Decision making differential diagnosis includes diverticulitis, diverticular abscess, bowel obstruction, sepsis, urinary tract infection, dehydration; plan is to check labs, CT, give IV fluids Zofran and Tylenol Impression & Plan Pneumonia, Abdominal pain Discharge Plan Visit Data Chief Complaint: Abdominal Pain Stated Complaint: Abd Pain, Fever, hx diverticulitis ED Provider: Damian Mathur Discharge Problem: Pneumonia, Abdominal pain Patient Disposition: Being Evaluated by Hospitalist Forms Stand Alone Forms: [employer] Prescriptions Prescriptions: No Action Combivent Respimat 20-100 mcg/actuation Mist 1 puff INHALATION QID PRN (Reason: SOB) RF: 0 labetalol 200 mg tablet 200 mg PO QAM RF: 0 sertraline 100 mg tablet 200 mg PO QAM RF: 0 alprazolam 0.25 mg tablet 0.25 mg PO QID PRN (Reason: Anxiety) RF: 0 multivitamin Tablet 1 tab PO DAILY RF: 0 ascorbic acid (vitamin C) [Vitamin C] 500 mg Tablet 500 mg PO DAILY RF: 0 vitamin E 400 unit Capsule 400 unit PO DAILY RF: 0 cholecalciferol (vitamin D3) [Vitamin D3] 25 mcg (1,000 unit) Tablet 25 mcg PO DAILY RF: 0 acetaminophen [Tylenol Extra Strength] 500 mg Tablet 1,000 mg PO Q6H PRN (Reason: Fever Or Pain) RF: 0 naproxen sodium [Aleve] 220 mg Tablet 220 mg PO Q12H PRN (Reason: Fever Or Pain) RF: 0 ibuprofen 200 mg Tablet 600 mg PO Q6H PRN (Reason: Fever Or Pain) RF: 0 budesonide-formoterol [Symbicort] 160-4.5 mcg/actuation HFA aerosol inhaler 2 puff INHALATION BID RF: 0 Referrals Referrals: Ismael Eddy MD [Primary Care Provider] -
[2022-01-09] MEDS ORDERED: OPTIRAY 320 100ml IV ONE (23:11)
[2022-01-09 23:16] LABS: INR 1.1 (0.9-1.1); Partial Thromboplastin Ratio 1.1; Partial Thromboplastin Time 30.7 Seconds (21.0-31.0); Prothrombin Time 11.3 Seconds (9.0-12.0)
[2022-01-09 23:57] LABS: Albumin Globulin Ratio 1.6 (0.9-2); Albumin Level 3.6 gm/dl (3.4-5.0); BUN Creatinine Ratio 13.9 (10-20); Bilirubin,Total 0.6 mg/dl (0.2-1.0); Calcium 8.2 mg/dl (8.5-10.1); Creatinine Clr Calc Pharmacy 162.8 ml/min; Est GFR (African American) 119.2 ml/min; Est GFR (Non-African American) 102.8 ml/min; Globulin 2.3 gm/dl (2.5-4.0); Magnesium 1.8 mg/dl (1.7-2.4); Potassium 4.5 mmol/L (3.5-5.1); Total Protein 5.9 gm/dl (6.0-8.3)
[2022-01-10] MEDS ORDERED: cefTRIAXone SODIUM 1,000 MG/50 ML BAG IV STA (00:21)
[2022-01-10] MEDS ORDERED: AZITHROMYCIN 500 MG in DEXTROSE 5% 250 ML IV ONE (00:21)
[2022-01-10] MEDS ORDERED: CEFEPIME 2,000 MG/20 ML VIAL IV STA (00:45)
--- NOTE | 2022-01-10 00:59 | History & Physical Report ---
Date of Service January 10, 2022 Assessment & Plan (1) Aspiration pneumonia due to gastric secretions: Plan: RLL aspiration pneumonia/asthma- Likely secondary to intense vomiting and dry heaving Cefepime 2 g IV every 12 hours Azithromycin 500 mg IV daily Duonebs every 4 hours while awake and every 2 hours when necessary. Guaifenesin extended release 1200 mg p.o. every 12 hours Hold Symbicort and Combivent (2) Enteritis: Plan: Patient was not having frequent bowel movements, but primarily abdominal cramping Unlikely C. difficile Famotidine 20 mg IV every 12 hours Full liquid diet (3) HTN (hypertension): Plan: Continue labetalol (4) Asthma: Plan: See above (5) Depression: Plan: Continue sertraline, and alprazolam as needed History of Present Illness Chief Complaint: The patient presents to the emergency department with complaint of 3 days of lower abdominal discomfort, fever, nausea and shortness of breath Primary Care Provider: Ismael Eddy MD The patient is a 56-year-old male with a past medical history including asthma, depression, and CIP, cellulitis of lower extremity, hypertension, cervical degenerative disc disease and radiculopathy, pneumoperitoneum, bowel perforation, Banegas's pouch, ventral hernia, hypertensive urgency, hypertension and LVH. He reports most recently completing a 10-day course of antibiotics for presumed diverticulitis about 5 days ago. 3 days ago he started with the lower abdominal discomfort and nausea with vomiting and dry heaving and shortness of breath. Chest x-ray and CT abdomen pelvis consistent with right lower lobe pneumonia, enteritis and right renal cyst. Allergies Allergy/AdvReac Type Severity Reaction Status Date / Time No Known Allergies Allergy Verified 01/10/22 00:12 Home Medications Medication Instructions Recorded Confirmed Type ipratropium 20 mcg-albuterol 100 1 puff INHALATION QID PRN 03/21/19 01/10/22 History mcg/actuation mist for inhalation (Combivent Respimat) labetalol 200 mg tablet 200 mg PO QAM 06/03/19 01/10/22 History sertraline 100 mg tablet 200 mg PO QAM 06/03/19 01/10/22 History alprazolam 0.25 mg tablet 0.25 mg PO QID PRN 07/27/21 01/10/22 History ascorbic acid (vitamin C) 500 mg 500 mg PO DAILY 12/13/21 05/29/22 History tablet (Vitamin C) cholecalciferol (vitamin D3) 25 25 mcg PO DAILY 07/27/21 01/10/22 History mcg (1,000 unit) tablet (Vitamin D3) multivitamin 1 tab PO DAILY 07/27/21 01/10/22 History vitamin E 400 unit capsule 400 unit PO DAILY 07/27/21 01/10/22 History acetaminophen 500 mg tablet 1,000 mg PO Q6H PRN 01/10/22 01/10/22 History (Tylenol Extra Strength) budesonide-formoterol HFA 160 2 puff INHALATION BID 01/10/22 01/10/22 History mcg-4.5 mcg/actuation aerosol inhaler (Symbicort) ibuprofen 200 mg tablet 600 mg PO Q6H PRN 01/10/22 01/10/22 History naproxen sodium 220 mg tablet 220 mg PO Q12H PRN 01/10/22 01/10/22 History (Aleve) Past Med/Surg History Medical History Asthma Depression Diverticular disease hx diverticular perforation s/p bowel resection/colostomy/colostomy reversal History of pneumonia Many years ago, was in hospital for bowel perforation and developed HAP. Hypertension Surgical History Fusion of spine C3-C5 "FULL ROM" H/O wrist surgery RIGHT History of appendectomy History of arthroscopy right knee arthroscopy: 03/29/19: LMA#5 History of bowel resection With colostomy, for bowel perforation. History of bronchoscopy History of colonoscopy History of colostomy History of colostomy reversal History of detached retina repair LEFT History of herniorrhaphy open abdominal hernia x8 with mesh. History of total knee replacement LEFT; 01/06/18 [facility] -- SAB + regional block both x 1 attempt History of total right knee replacement (~08/2019) Family History Other No known health problems Social History Smoking Status: Former smoker Second Hand Exposure: No; Hx Alcohol Use: Yes Alcohol type: beer Hx Substance Use: No Preferred Language: Qatari Communication Ability: Effective Wool Handler Required: No Beliefs That Will Affect Care: None marital status: Current Living Situation: Spouse Other Information That Helps Us Care for You: No Feels Safe at Home: Yes Safety Concerns: Feels Safe At This Time Assistive Devices: None Review of Systems Review of Systems: The patient denies chest pain, palpitations, lower extremity swelling, sore throat, fevers, chills, sweats, blood in urine or stool, dysuria, urinary frequency or urgency, lightheadedness, dizziness, headache, memory loss, loss of consciousness, rash, abnormal bruising or bleeding, imbalance, focal or generalized weakness, numbness or tingling in arms or legs, generalized arthralgias or myalgias, or night sweats. The review of systems is otherwise negative other than for that already noted above, and at least 10 systems have been reviewed. Physical Exam Physical Exam: The patient is awake, alert and oriented 3, mildly diaphoretic, well developed and well nourished, normocephalic and atraumatic, lying in bed and in otherwise no acute distress. HEENT--PERRL, EOMI, mucous membranes and oropharynx dry. Neck--supple. No JVD. No bruits. Thyroid normal, trachea midline, no adenopathy. Heart--normal S1 and S2. No murmurs, rubs or gallops. Lungs--clear bilaterally, no respiratory distress, no accessory muscle use. Abdomen--normal bowel sounds and soft. Nontender. Nondistended. Extremities--no cyanosis or clubbing. No edema. Dermatologic--normal skin turgor, normal color, no abnormal lymph nodes, no rash. Neurologic--cranial nerves II through XII grossly intact. Rheumatologic--normal range of motion. Psychiatric--normal affect. Results & Data Results & Data ([facility]) Vital Signs (Past 12 Hours) Vital Signs Temp Pulse Pulse Resp BP BP Pulse Ox 01/10/22 00:26 38.3 C H 80 22 127/76 94 01/09/22 23:20 90 25 H 130/77 92 01/09/22 22:46 39.4 C H 25 H 93 01/09/22 22:42 39.4 C H 92 H 25 H 141/89 H 94 Laboratory Results Laboratory Results WBC 7.40 K/uL (4.8-10.8) 01/09/22 22:50 RBC 4.49 M/uL (4.7-6.1) L 01/09/22 22:50 Hgb 13.8 g/dL (14.0-18.0) L 01/09/22 22:50 POC Hgb 14.6 g/dl (14.0-18.0) 01/09/22 22:56 Hct 40.4 % (42-52) L 01/09/22 22:50 POC Hct 43 % (42-52) 01/09/22 22:56 MCV 90.0 fL (80-100) 01/09/22 22:50 MCH 30.7 pg (25-34) 01/09/22 22:50 MCHC 34.2 g/dL (32-36) 01/09/22 22:50 RDW Std Deviation 45.0 fL (36.4-46.3) 01/09/22 22:50 RDW Coeff of Ashish 13.6 % (11.5-14.5) 01/09/22 22:50 Plt Count 205 K/uL (130-400) 01/09/22 22:50 MPV 9.8 fL (7.4-10.4) 01/09/22 22:50 Immature Gran % (Auto) 0.3 % 01/09/22 22:50 Neut % (Auto) 81.0 % 01/09/22 22:50 Lymph % (Auto) 10.7 % 01/09/22 22:50 Daggett % (Auto) 6.5 % 01/09/22 22:50 Eos % (Auto) 1.1 % 01/09/22 22:50 Baso % (Auto) 0.4 % 01/09/22 22:50 Neut # (Auto) 6.00 K/uL (1.4-6.5) 01/09/22 22:50 Lymph # (Auto) 0.79 K/uL (1.2-3.4) L 01/09/22 22:50 Daggett # (Auto) 0.48 K/uL (0.11-0.59) 01/09/22 22:50 Eos # (Auto) 0.08 K/uL (0-0.5) 01/09/22 22:50 Baso # (Auto) 0.03 K/uL (0-0.2) 01/09/22 22:50 Immature Gran # (Auto) 0.02 K/uL (0.00-0.02) 01/09/22 22:50 PT 11.3 Seconds (9.0-12.0) 01/09/22 22:50 INR 1.1 (0.9-1.1) 01/09/22 22:50 APTT 30.7 Seconds (21.0-31.0) 01/09/22 22:50 PTT Ratio 1.1 01/09/22 22:50 POC Sodium 135 mmol/L (135-144) 01/09/22 22:56 Sodium 133 mmol/L (136-145) L 01/09/22 22:50 POC Potassium 4.7 mmol/L (3.3-5.0) 01/09/22 22:56 Potassium 4.5 mmol/L (3.5-5.1) 01/09/22 22:50 POC Chloride 102 mmol/L (101-112) 01/09/22 22:56 Chloride 103 mmol/L (98-107) 01/09/22 22:50 Carbon Dioxide 23 mmol/L (21-32) 01/09/22 22:50 POC Total CO2 24 mmol/L (24-31) 01/09/22 22:56 Anion Gap 7 (3-11) 01/09/22 22:50 POC Anion Gap 14.0 mmol/L (16-25) L 01/09/22 22:56 POC BUN 10 mg/dl (7-18) 01/09/22 22:56 BUN 10 mg/dl (6-23) 01/09/22 22:50 Creatinine 0.72 mg/dl (0.6-1.4) 01/09/22 22:50 POC Creatinine 0.7 mg/dl (0.6-1.3) 01/09/22 22:56 Est Cr Clr Drug Dosing 162.8 ml/min 01/09/22 22:50 Est GFR ( Amer) 119.2 ml/min 01/09/22 22:50 Est GFR (Non-Af Amer) 102.8 ml/min 01/09/22 22:50 BUN/Creatinine Ratio 13.9 (10-20) 01/09/22 22:50 Glucose 102 mg/dl (70-99(Fasting)) H 01/09/22 22:50 POC Glucose (other) 105 mg/dl (70-99) H 01/09/22 22:56 Lactate 0.8 mmol/L (0.4-2.0) 01/09/22 23:01 Calcium 8.2 mg/dl (8.5-10.1) L 01/09/22 22:50 POC Ioniz Calcium Aaliyah 1.05 mmol/l (1.12-1.32) L 01/09/22 22:56 Magnesium 1.8 mg/dl (1.7-2.4) 01/09/22 22:50 Total Bilirubin 0.6 mg/dl (0.2-1.0) 01/09/22 22:50 AST 26 U/L (13-39) 01/09/22 22:50 ALT 25 U/L (7-52) 01/09/22 22:50 Alkaline Phosphatase 46 U/L (34-104) 01/09/22 22:50 Total Protein 5.9 gm/dl (6.0-8.3) L 01/09/22 22:50 Albumin 3.6 gm/dl (3.4-5.0) 01/09/22 22:50 Globulin 2.3 gm/dl (2.5-4.0) L 01/09/22 22:50 Albumin/Globulin Ratio 1.6 (0.9-2) 01/09/22 22:50 SARS-CoV-2, RNA, NAAT NEGATIVE (NEGATIVE) 01/09/22 23:15 Diagnostic Findings [facility] Patient: CORETTA FLORES (Male) : 61 Status: ER Date: 01/09/22 23:22 Room #: History: PT. REPORTS DIFFUSE ABDOMINAL PAIN, FEVER, BODY ACHES HISTORY OF DIVRTICULITIS APPENDIX NOT PRESENT OPTI 320 94 CC Slices: [id number] Priors: Tech: Laura Lopez @ [phone] Exams: CT ABDOMEN & PELVIS With Contrast Contrast: IV Amt: opti 320 94 cc Accession Numbers: [id number] Referring Physician: CORI MATHUR Preliminary Findings Only See Final Report For Complete Findings CT ABDOMEN & PELVIS With Contrast: Comparison: 12/23/2021. Right lower lobe consolidation compatible with pneumonia. Minimal left posterior atelectasis. Normal heart. No pleural effusion. Normal liver. Over distended gallbladder otherwise unremarkable gallbladder and biliary system. Normal spleen and pancreas. Normal bilateral adrenal glands. Normal pancreas. Scarring involving the bilateral kidneys. There is a right mid lower renal pole simple cyst measuring 2.4 cm. Otherwise normal right kidney. Normal left kidney. No hydronephrosis. Minimal atherosclerosis of aorta with no aneurysm or dissection. Unremarkable stomach with no hiatal hernia. Multiple loops of small bowel slig htly distended up to 2.6-2.7 cm with multiple air-fluid levels suggestive of malabsorption versus enteritis versus ileus. No significant dilatation to suggest obstruction. Minimal diverticulosis with no signs of diverticulitis. Appendix not visualized with sutures/clips by the cecum suggestive of prior appendectomy. Normal urinary bladder. Normal size of prostate gland. Degenerative disease of the spine. Radiologist: Gisell Santos MD Study ready at 23:26 and initial results transmitted at 00:14 *This report constitutes a preliminary interpretation only. Non-acute findings felt to be unrelated to the clinical presentation may not be discussed in this report. The study will be interpreted and a final report will be generated by the local Radiologist the following shift. To reach the [facility] radiology department call [phone]. If a discrepancy is found between the preliminary and final interpretations of this study, please notify us via our Client Portal at [email or web address], under QA Exams. You can also fax this report with a description of the discrepancy, or include the final report, to our daytime fax number [phone]. If faxing, please indicate the severity of discrepancy using one of the following categories: [ ] 1 - Agree/Informational [ ] 2 - Unlikely to Affect Management [ ] 3 - Possible Eventual Change of Management [ ] 4 - Probable Immediate Change of Management For all other patient related information, please fax us at [phone]. [id number] Code Status & VTE Plan Code Status Full code VTE Prophylaxis Plan VTE Prophylaxis will be ordered: Yes PG Care Time/CCT Total # of Minutes Spent Total Time Spent with Patient: Total time spent is greater than 50% in coordination of care (as documented) at patient's floor/unit and/or counseling patient: Coding Level of Care Code 90476 Initial Inpt Care Lvl 3 Diagnoses HTN (hypertension) I10 Aspiration pneumonia due to gastric secretions J69.0 Asthma J45.909 Depression F32.9 Enteritis K52.9
[2022-01-10] MEDS ORDERED: ALPRAZolam 0.25 MG TABLET PO PRN (02:12)
[2022-01-10] MEDS: traMADol HCL 50 MG TABLET PO PRN (02:57)
[2022-01-10] MEDS ORDERED: COUGH DROP (SUGAR FREE) LOZ 24 LOZ/1 BOX BUCCAL ONE (04:17)
[2022-01-10] MEDS ORDERED: COUGH DROP (SUGAR FREE) LOZ 24 LOZ/1 BOX BUCCAL STA (04:22)
[2022-01-10 04:32] LABS: Appearance Urine Clear (Clear); Bilirubin Urine Negative (Negative); Blood Urine Negative (Negative); Color Urine Yellow; Glucose Urine UA Negative (Negative); Ketones Urine Negative (Negative); Leukocyte Esterase Urine Negative (Negative); Nitrite Urine Negative (Negative); Protein Urine Negative (Negative); Specific Gravity Urine 1.016 (1.000-1.030); Urobilinogen Urine Negative (Negative)
[2022-01-10] MEDS: ALBUT/IPRATROP 3MG/0.5MG NEB 3 ML VIAL NEB SCH ×2 (07:18→11:15)
[2022-01-10] MEDS: ONDANSETRON INJ 2 MG/ML 2 ML VIAL IV PRN ×3 (07:34→23:14)
[2022-01-10] MEDS: KETOROLAC TROMETHAMINE 15 MG/ML VIAL IV PRN ×3 (07:35→23:15)
--- NOTE | 2022-01-10 07:52 | CT Scan Report ---
CT SCAN OF THE ABDOMEN AND PELVIS WITH IV CONTRAST CLINICAL HISTORY: Generalized abdominal pain. Fever. COMPARISON STUDY: Abdominal CT dated 12/23/2021 TECHNIQUE: Following the IV administration of 94 cc of Optiray 320, CT scan of the abdomen and pelvi s is performed from the lung bases to the proximal femora. Images are reviewed in the axial, sagittal , and coronal planes. IV contrast was administered without complication. A dose lowering technique wa s utilized adhering to the principles of ALARA. CT DOSE: 915.77 mGy.cm FINDINGS: Lung bases: The heart is normal in size and without pericardial effusion. Airspace consolidation is s een at the right lung base. Liver: The contrast-enhanced liver is normal in size, contour, and attenuation. There is no intrahepa tic biliary ductal dilatation. The hepatic veins and portal veins are patent. Gallbladder: Unremarkable. Spleen: Normal in size and attenuation. Pancreas: Unremarkable. Adrenal glands: Nodular thickening of the left adrenal gland is similar to previous. The right adrena l gland is normal in appearance. Kidneys: The contrast enhanced kidneys are normal in size and without hydronephrosis. The kidneys enh ance symmetrically. Foci of cortical scarring are noted in both kidneys. A 3.2 cm cyst is noted in th e right kidney. Abdominal vasculature: The abdominal aorta is normal in course and caliber noting mild atheroscleroti c calcification. Bowel: There is postoperative change from sigmoid colon resection with colocolonic anastomosis. No pauly wel obstruction is identified. There is moderate diverticulosis of the remaining colon without CT sapna dence of acute diverticulitis. There is also small bowel diverticulosis. Findings of small bowel dive rticulitis seen on 12/23/2021 have resolved. No bowel obstruction is identified. Fecal retention is se en throughout the colon. The appendix is not identified and postoperative change in the right lower q uadrant suggests previous appendectomy. Peritoneum: There is no intraperitoneal free air or abdominal ascites. A midline surgical scar is not ed. Lymphadenopathy: None. Pelvic viscera: The bladder, prostate, and seminal vesicles are normal as visualized. Skeletal structures: The skeletal structures are osteopenic. Mild to moderate lumbosacral spondylosis is observed. There are large posterior discussed by complexes at L3-L4 and L4-L5. No lytic or blasti c lesions are seen. IMPRESSION: 1. Airspace consolidation at the right lung base is typical for pneumonia. Radiographic follow-up to resolution is recommended. 2. There is diverticulosis of the small bowel and colon. Findings of small bowel diverticulitis seen on 12/23/2021 have resolved. 3. Additional chronic and postoperative findings as above. ACT 112: Negative or not required by law. Electronically signed by: Jordan Barth M.D. 01/10/2022 7:51 AM
[2022-01-10] MEDS: CHOLECALCIFEROL 1,000 UNITS 25 MCG TAB PO SCH (08:03)
[2022-01-10] MEDS: MULTIVITAMIN TAB PO SCH (08:03)
[2022-01-10] MEDS: ASCORBIC ACID 500 MG TAB PO SCH (08:03)
[2022-01-10] MEDS: TOCOPHERYL, DL-ALPHA 400 UNITS 180 MG CAP PO SCH (08:03)
[2022-01-10] MEDS: LABETALOL HCL 100 MG TAB PO SCH ×2 (08:07→21:38)
[2022-01-10] MEDS: SERTRALINE HCL 100 MG TABLET PO SCH (08:07)
[2022-01-10] MEDS: guaiFENesin 600 MG TABCR PO SCH ×2 (08:07→21:37)
[2022-01-10] MEDS: ENOXAPARIN INJ 40 MG/0.4 ML SYR SQ SCH (08:07)
--- NOTE | 2022-01-10 08:08 | XRay Report ---
XR chest 1V portable HISTORY: SEPSIS COMPARISON: Chest 12/23/2021. FINDINGS: Focal airspace opacity within the right medial lung base. This likely represents a pneumoni a. No pneumothorax. No pleural effusions. The heart is normal in size. Cervical spinal fusion hardwar e is noted. IMPRESSION: Right medial lung base airspace opacity consistent with a pneumonia. ACT 112: Negative or not required by law. Electronically signed by: Yony Vidal M.D. 01/10/2022 8:07 AM
[2022-01-10] MEDS: FAMOTIDINE 20 MG in SYRINGE 3 ML IV SCH ×2 (09:13→21:21)
[2022-01-10] MEDS ORDERED: ALBUT/IPRATROP 3MG/0.5MG NEB 3 ML VIAL NEB PRN (11:39)
[2022-01-10] MEDS ORDERED: CEFEPIME 2,000 MG in SYRINGE 0 ML IV SCH (13:00)
[2022-01-10] MEDS ORDERED: POLYETHYLENE (MIRALAX) 17 GM PACK PO ONE (13:30)
--- NOTE | 2022-01-10 13:52 | Electrocardiogram Report ---
Test Reason : Blood Pressure : / mmHG Vent. Rate : 089 BPM Atrial Rate : 089 BPM P-R Int : 144 ms QRS Dur : 082 ms QT Int : 352 ms P-R-T Axes : 036 025 028 degrees QTc Int : 428 ms Poor data quality, interpretation may be adversely affected Normal sinus rhythm Normal ECG When compared with ECG of 23-DEC-2021 16:31, No significant change was found Confirmed by Kaleb Medellin ([id number]) on 01/10/2022 1:51:45 PM Referred By: REFERRED SELF Confirmed By:Kaleb Medellin
[2022-01-10] MEDS: ACETAMINOPHEN 500 MG TAB PO PRN (15:36)
--- NOTE | 2022-01-10 17:42 | Communication Note ---
Date of Service: January 10, 2022 feeling lousy. stabbing/rippy stomach pain sore throat and fevers vitals noted fatigued but otherwise nad heent nc at mmm pharynx w mild/mod erythema no exudate lungs diminished base R no r/r/w good effort no accessory muscles abd soft mild/mod distended no guarding/rebound pneumonia - CAP vs aspiration given vomiting. SIRS on admission = pneumonia w s epsis on admission but fortunatley not severe sepsis/septic shock. given healthcare exposures - MRSA nares and adjust abx to cover if positive, but for now zithromax/rocephin, serial exams, supportive care, time abdominal pain - on review, mo scat scan shows significant stool and gas both noted by me and radiloogy- descritpion, exam, CT findings - strongly suspect his pain is from constipation (and likely nausea and vomiting as wel l). miralax 51g now, then 34g daily - additional if needed. DVT proph - lovenox
[2022-01-10] MEDS ORDERED: IPRATROPIUM BROMIDE/ALBUTEROL respimat INH INH PRN (17:45)
[2022-01-10] MEDS ORDERED: ALBUTEROL HFA 8 GM INHALER INH PRN (17:53)
[2022-01-10] MEDS ORDERED: IPRATROPIUM BROMIDE HFA INHALER INH PRN (17:53)
[2022-01-10] MEDS: cefTRIAXone SODIUM 2,000 MG in DEXTROSE 5% 50 ML IV SCH (21:27)
[2022-01-10] MEDS: AZITHROMYCIN 500 MG in DEXTROSE 5% 250 ML IV SCH (21:33)
[2022-01-11] MEDS: ACETAMINOPHEN 500 MG TAB PO PRN (06:01)
--- NOTE | 2022-01-11 07:24 | Hospitalist Progress Note ---
Date of Service January 11, 2022 Assessment & Plan (1) Pneumonia: (2) Enteritis: (3) Asthma: (4) Depression: (5) HTN (hypertension): Plan: Thomas is a 56 year old male w/ PmHx of asthma, depression, HTN, diverticulitis, cervical disc degeneration admitted for pneumonia. Severe PNA: -CXR w/ evidence of R medial lung base airspace opacity consistent w/ pneumonia. -CT A/P: Airspace consolidation at R lung base consistent typical for pneumonia. -WBC 4.73. MRSA swab negative. Blood cultures negative after 24 hours. -Fever up to 39.4, last fever 38.3 at 06:00 01/11. -Common CAP vs atypical pneumonia. -On Ceftriaxone 2g q24h, Azithromycin 500mg q24h. -Acetaminophen 1000mg Q6H PRN for fevers, Toradol 30mg IV q6h for pain. -Tessalon pearls 100mg TID for cough, Chloraseptic spray for sore throat. -Monitor vitals, AM CBC. Enteritis: -Previous treatment w/ Augmentin for 10 days for diverticulitis. -No complaints of diarrhea. -Low suspicion for C. Diff, may be post antibiotic bowel saqib change vs viral etiology. -Famotidine 20mg IV q12h. Hypertension: -Continue home labetalol 200mg QAM. Asthma: -Breo-ellipta 1 puff daily, Ventolin q6h PRN, duoneb q4h PRN. Depression/Anxiety: -Continue home sertraline, xanax 0.25mg PRN. DVT Prophylaxis: SCDs F/E/N/GI: Heart Healthy diet. Code status: Full code Dispo: Med/Surg Admission and Anticipated Discharge Date Admission Date: January 10, 2022 Supervising Physician Co-Signing Physician Notes Resident Physician Supervision Note: I independently interviewed and examined the patient and verified the acrey history and physical, reviewed labs and image studies and agree with resident Dr. Toscano findings and care plan. Subjective Patient seen at the bedside this morning, stating he still feels crappy but better than when he first came in. At times he is feverish and sweating a lot. Eating well this morning without nausea. Patient feels mildly short of breath and has mild pain with deep inspiration. Lower quadrant pain is lessened and better than when he first came in. Review of Systems Constitutional: as per Subjective / HPI Physical Exam Constitutional: WD/WN, vitals as above Eyes: PERRL, conjunctivae normal, anicteric sclerae Neck: trachea midline, no thyromegaly Respiratory: Mild end expiratory wheeze at R lower lung field, otherwise clear to auscultation bilaterally. Cardiovascular: RRR, no murmur, no edema Gastrointestinal (Abdomen): normal bowel sounds, soft, nontender, no hepatosplenomegaly Skin: no rashes, warm and dry Psychiatric: A+Ox3, euthymic affect Results & Data Results & Data ([facility]) Vital Signs (Past 12 Hours) Vital Signs Temp Pulse Pulse Resp BP Pulse Ox 01/11/22 06:05 38.3 C H 69 18 145/71 H 93 01/11/22 01:14 70 01/10/22 23:51 37.2 C 77 18 132/75 94 01/10/22 23:27 20 95 01/10/22 21:40 36.8 C 63 20 125/70 94 Resident Activity Tracking Resident Involvement: Resident Care Provided Care Provided: Adult Hospital Medicine
[2022-01-11 07:29] LABS: Basophils # (auto) 0.02 K/uL (0-0.2); Basophils % (auto) 0.4 %; Eosinophils # (auto) 0.09 K/uL (0-0.5); Eosinophils % (auto) 1.9 %; Hematocrit (blood only) 38.4 % (42-52); Hemoglobin 13.1 g/dL (14.0-18.0); Immature Granulocytes # (auto) 0.02 K/uL (0.00-0.02); Immature Granulocytes % (auto) 0.4 %; Lymphocytes # (auto) 0.84 K/uL (1.2-3.4); Lymphocytes % (auto) 17.8 %; Mean Corpuscular Hemoglobin 30.4 pg (25-34); Mean Corpuscular Hgb Conc 34.1 g/dL (32-36); Mean Corpuscular Volume 89.1 fL (80-100); Mean Platelet Volume 9.4 fL (7.4-10.4); Monocytes # (auto) 0.41 K/uL (0.11-0.59); Monocytes % (auto) 8.7 %; Neutrophils # (auto) 3.35 K/uL (1.4-6.5); Neutrophils % (auto) 70.8 %; Platelet Count 180 K/uL (130-400); RDW Coefficient of Variation 13.5 % (11.5-14.5); RDW Standard Deviation 44.4 fL (36.4-46.3); Red Blood Count 4.31 M/uL (4.7-6.1); White Blood Count 4.73 K/uL (4.8-10.8)
[2022-01-11 07:48] LABS: BUN Creatinine Ratio 12.9 (10-20); Creatinine Clr Calc Pharmacy 167.4 ml/min; Est GFR (African American) 120.6 ml/min; Potassium 3.8 mmol/L (3.5-5.1)
[2022-01-11] MEDS: ENOXAPARIN INJ 40 MG/0.4 ML SYR SQ SCH (08:02)
[2022-01-11] MEDS: LABETALOL HCL 100 MG TAB PO SCH ×2 (08:03→21:59)
[2022-01-11] MEDS: guaiFENesin 600 MG TABCR PO SCH ×2 (08:03→21:58)
[2022-01-11] MEDS: SERTRALINE HCL 100 MG TABLET PO SCH (08:03)
[2022-01-11] MEDS: CHOLECALCIFEROL 1,000 UNITS 25 MCG TAB PO SCH (08:04)
[2022-01-11] MEDS: MULTIVITAMIN TAB PO SCH (08:04)
[2022-01-11] MEDS: ASCORBIC ACID 500 MG TAB PO SCH (08:04)
[2022-01-11] MEDS: TOCOPHERYL, DL-ALPHA 400 UNITS 180 MG CAP PO SCH (08:04)
[2022-01-11] MEDS: FAMOTIDINE 20 MG in SYRINGE 3 ML IV SCH ×2 (08:13→21:31)
[2022-01-11] MEDS: CHLORASEPTIC 1.4% SOLN 180 ML BTL MT PRN ×2 (08:14→11:04)
[2022-01-11] MEDS: POLYETHYLENE (MIRALAX) 17 GM PACK PO SCH (08:22)
[2022-01-11] MEDS: FLUTICASONE/VILANTEROL 200/25MCG 14 PUFFS/INHALER INH SCH (11:16)
[2022-01-11] MEDS: BENZONATATE 100 MG CAPSULE PO SCH ×2 (13:17→21:31)
[2022-01-11] MEDS: KETOROLAC TROMETHAMINE 15 MG/ML VIAL IV PRN (18:26)
[2022-01-11] MEDS: cefTRIAXone SODIUM 2,000 MG in DEXTROSE 5% 50 ML IV SCH (21:31)
[2022-01-11] MEDS: AZITHROMYCIN 500 MG in DEXTROSE 5% 250 ML IV SCH (22:16)
--- NOTE | 2022-01-12 06:54 | Hospitalist Progress Note ---
Date of Service January 12, 2022 Assessment & Plan (1) Pneumonia: (2) Enteritis: (3) Asthma: (4) Depression: (5) HTN (hypertension): Plan: Thomas is a 56 year old male w/ PmHx of asthma, depression, HTN, diverticulitis, cervical disc degeneration admitted for pneumonia. Severe PNA: -CXR w/ evidence of R medial lung base airspace opacity consistent w/ pneumonia. -CT A/P: Airspace consolidation at R lung base consistent typical for pneumonia. -WBC 4.73. MRSA swab negative. Blood cultures negative after 24 hours. -Fever up to 39.4, last fever 38.3 at 06:00 01/11. -Common CAP vs atypical pneumonia. -On Ceftriaxone 2g q24h, Azithromycin 500mg q24h. -Acetaminophen 1000mg Q6H PRN for fevers, Toradol 30mg IV q6h for pain. -Tessalon pearls 100mg TID for cough, Chloraseptic spray for sore throat. -Monitor vitals, AM CBC. Enteritis: -Previous treatment w/ Augmentin for 10 days for diverticulitis. -No complaints of diarrhea. -Low suspicion for C. Diff, may be post antibiotic bowel saqib change vs viral etiology. -Famotidine 20mg IV q12h. Hypertension: -Continue home labetalol 200mg QAM. Asthma: -Breo-ellipta 1 puff daily, Ventolin q6h PRN, duoneb q4h PRN. Depression/Anxiety: -Continue home sertraline, xanax 0.25mg PRN. DVT Prophylaxis: SCDs F/E/N/GI: Heart Healthy diet. Code status: Full code Dispo: Med/Surg. Discussed discharge with patient today, patient still very anxious about going home today, would like to go home tomorrow morning. Reassured patient on stability and progression but patient still wanting to go home tomorrow morning and be monitored overnight. Admission and Anticipated Discharge Date Admission Date: January 10, 2022 Supervising Physician Co-Signing Physician Notes Resident Physician Supervision Note: I independently interviewed and examined the patient and verified the carey history and physical, reviewed labs and image studies and agree with resident Dr. Toscano findings and care plan. Subjective Patient doing well this morning but anxious about going home today and feeling feverish and sick like he did before he came in. Denies fevers, chills, shortness of breath, chest pain. Review of Systems Constitutional: as per Subjective / HPI Physical Exam Constitutional: WD/WN, vitals as above Eyes: PERRL, conjunctivae normal, anicteric sclerae Neck: trachea midline, no thyromegaly Respiratory: normal respiratory effort, lungs clear to auscultation Cardiovascular: RRR, no murmur, no edema Gastrointestinal (Abdomen): normal bowel sounds, soft, nontender, no hepatosplenomegaly Skin: no rashes, warm and dry Psychiatric: A+Ox3, euthymic affect Results & Data Results & Data ([facility]) Vital Signs (Past 12 Hours) Vital Signs Temp Pulse Resp BP Pulse Ox 01/11/22 23:56 68 18 95 01/11/22 22:00 36.7 C 65 14 162/93 H 94 Resident Activity Tracking Resident Involvement: Resident Care Provided Care Provided: Adult Hospital Medicine
[2022-01-12 07:17] LABS: Basophils # (auto) 0.03 K/uL (0-0.2); Basophils % (auto) 0.6 %; Eosinophils # (auto) 0.14 K/uL (0-0.5); Eosinophils % (auto) 2.7 %; Hematocrit (blood only) 38.9 % (42-52); Hemoglobin 13.3 g/dL (14.0-18.0); Immature Granulocytes # (auto) 0.02 K/uL (0.00-0.02); Immature Granulocytes % (auto) 0.4 %; Lymphocytes # (auto) 1.19 K/uL (1.2-3.4); Lymphocytes % (auto) 23.2 %; Mean Corpuscular Hemoglobin 30.1 pg (25-34); Mean Corpuscular Hgb Conc 34.2 g/dL (32-36); Mean Platelet Volume 9.3 fL (7.4-10.4); Monocytes # (auto) 0.49 K/uL (0.11-0.59); Monocytes % (auto) 9.6 %; Neutrophils # (auto) 3.26 K/uL (1.4-6.5); Neutrophils % (auto) 63.5 %; Platelet Count 212 K/uL (130-400); RDW Coefficient of Variation 13.5 % (11.5-14.5); RDW Standard Deviation 43.7 fL (36.4-46.3); Red Blood Count 4.42 M/uL (4.7-6.1); White Blood Count 5.13 K/uL (4.8-10.8)
[2022-01-12 07:50] LABS: BUN Creatinine Ratio 11.9 (10-20); Calcium 8.3 mg/dl (8.5-10.1); Creatinine Clr Calc Pharmacy 174.9 ml/min; Est GFR (African American) 122.8 ml/min; Est GFR (Non-African American) 105.9 ml/min; Potassium 3.9 mmol/L (3.5-5.1)
[2022-01-12] MEDS: CHOLECALCIFEROL 1,000 UNITS 25 MCG TAB PO SCH (08:22)
[2022-01-12] MEDS: ASCORBIC ACID 500 MG TAB PO SCH (08:22)
[2022-01-12] MEDS: TOCOPHERYL, DL-ALPHA 400 UNITS 180 MG CAP PO SCH (08:22)
[2022-01-12] MEDS: MULTIVITAMIN TAB PO SCH (08:22)
[2022-01-12] MEDS: LABETALOL HCL 100 MG TAB PO SCH ×2 (08:22→21:31)
[2022-01-12] MEDS: guaiFENesin 600 MG TABCR PO SCH ×2 (08:22→21:18)
[2022-01-12] MEDS: FLUTICASONE/VILANTEROL 200/25MCG 14 PUFFS/INHALER INH SCH (08:23)
[2022-01-12] MEDS: KETOROLAC TROMETHAMINE 15 MG/ML VIAL IV PRN ×2 (08:29→21:17)
[2022-01-12] MEDS: POLYETHYLENE (MIRALAX) 17 GM PACK PO SCH (08:56)
[2022-01-12] MEDS ORDERED: IBUPROFEN 600 MG TAB PO PRN (09:41)
[2022-01-12] MEDS: FAMOTIDINE 20 MG in SYRINGE 3 ML IV SCH ×2 (10:46→21:30)
[2022-01-12] MEDS: BENZONATATE 100 MG CAPSULE PO SCH ×3 (10:46→21:30)
[2022-01-12] MEDS: SERTRALINE HCL 100 MG TABLET PO SCH (10:46)
[2022-01-12] MEDS: ENOXAPARIN INJ 40 MG/0.4 ML SYR SQ SCH (10:46)
[2022-01-12] MEDS: AZITHROMYCIN 500 MG in DEXTROSE 5% 250 ML IV SCH (21:18)
[2022-01-12] MEDS: cefTRIAXone SODIUM 2,000 MG in DEXTROSE 5% 50 ML IV SCH (21:18)
[2022-01-13] MEDS: traMADol HCL 50 MG TABLET PO PRN (01:55)
[2022-01-13] MEDS: POLYETHYLENE (MIRALAX) 17 GM PACK PO SCH (07:34)
[2022-01-13] MEDS: guaiFENesin 600 MG TABCR PO SCH (07:35)
[2022-01-13] MEDS: ENOXAPARIN INJ 40 MG/0.4 ML SYR SQ SCH (07:35)
[2022-01-13] MEDS: SERTRALINE HCL 100 MG TABLET PO SCH (07:35)
[2022-01-13] MEDS: FAMOTIDINE 20 MG in SYRINGE 3 ML IV SCH (07:35)
[2022-01-13] MEDS: LABETALOL HCL 100 MG TAB PO SCH (07:35)
[2022-01-13] MEDS: FLUTICASONE/VILANTEROL 200/25MCG 14 PUFFS/INHALER INH SCH (07:35)
[2022-01-13] MEDS: TOCOPHERYL, DL-ALPHA 400 UNITS 180 MG CAP PO SCH (07:36)
[2022-01-13] MEDS: MULTIVITAMIN TAB PO SCH (07:36)
[2022-01-13] MEDS: CHOLECALCIFEROL 1,000 UNITS 25 MCG TAB PO SCH (07:36)
[2022-01-13] MEDS: ASCORBIC ACID 500 MG TAB PO SCH (07:36)
[2022-01-13] MEDS: BENZONATATE 100 MG CAPSULE PO SCH (07:36)
--- NOTE | 2022-01-13 09:58 | Discharge Summary ---
Date of Service January 13, 2022 Admission HPI Per Admitting Provider The patient is a 56-year-old male with a past medical history including asthma, depression, and CIP, cellulitis of lower extremity, hypertension, cervical degenerative disc disease and radiculopathy, pneumoperitoneum, bowel perforation, Banegas's pouch, ventral hernia, hypertensive urgency, hypertension and LVH. He reports most recently completing a 10-day course of antibiotics for presumed diverticulitis about 5 days ago. 3 days ago he started with the lower abdominal discomfort and nausea with vomiting and dry heaving and shortness of breath. Chest x-ray and CT abdomen pelvis consistent with right lower lobe pneumonia, enteritis and right renal cyst. Admission Exam Per Admitting Provider The patient is awake, alert and oriented 3, mildly diaphoretic, well developed and well nourished, normocephalic and atraumatic, lying in bed and in otherwise no acute distress. HEENT--PERRL, EOMI, mucous membranes and oropharynx dry. Neck--supple. No JVD. No bruits. Thyroid normal, trachea midline, no adenopathy. Heart--normal S1 and S2. No murmurs, rubs or gallops. Lungs--clear bilaterally, no respiratory distress, no accessory muscle use. Abdomen--normal bowel sounds and soft. Nontender. Nondistended. Extremities--no cyanosis or clubbing. No edema. Dermatologic--normal skin turgor, normal color, no abnormal lymph nodes, no rash. Neurologic--cranial nerves II through XII grossly intact. Rheumatologic--normal range of motion. Psychiatric--normal affect. Principal Diagnosis Pneumonia Discharge Exam Constitutional WD/WN, vitals as above Eyes PERRL, conjunctivae normal, anicteric sclerae Neck trachea midline, no thyromegaly Respiratory normal respiratory effort, lungs clear to auscultation Cardiovascular RRR, no murmur, no edema Gastrointestinal (Abdomen) normal bowel sounds, soft, nontender, no hepatosplenomegaly Skin no rashes, warm and dry Psychiatric A+Ox3, euthymic affect Discharge Data Allergies Allergy/AdvReac Type Severity Reaction Status Date / Time No Known Allergies Allergy Verified 01/10/22 00:12 Consultations 01/10/22 00:33 ED Decision to Admit Stat Ordered Studies 01/09/22 22:54 CT abd pelvis IV con only Urgent Hospital Course (1) Pneumonia: (2) Enteritis: (3) Asthma: (4) Depression: (5) HTN (hypertension): Thomas is a 56 year old male w/ PmHx of asthma, depression, HTN, diverticulitis, cervical disc degeneration admitted for pneumonia. Severe PNA: -CXR w/ evidence of R medial lung base airspace opacity consistent w/ pneumonia. -CT A/P: Airspace consolidation at R lung base consistent typical for pneumonia. -WBC 4.73. MRSA swab negative. Blood cultures negative after 24 hours. -Fever up to 39.4, last fever 38.3 at 06:00 01/11. -On Ceftriaxone 2g q24h, Azithromycin 500mg q24h during hospital stay. -Completed 3 days of each. -Prescribed additional course of Cefdinir 300mg BID for 7 days upon discharge. Enteritis: -Previous treatment w/ Augmentin for 10 days for diverticulitis. -No complaints of diarrhea. -Low suspicion for C. Diff, may be post antibiotic bowel saqib change vs viral etiology. Total Time Total Time Spent Total Time Spent (In Minutes): Please see attending attestation. Discharge Plan Discharge Items Patient Disposition: Home - Self-Care Reason For Visit: PNEUMONIA W/ HYPOXIA, ENTERITIS Discharge Diagnosis: Pneumonia Activity: Per Instructions section Non-emergency contact: Primary Care Provider Call non-emergency contact if: your symptoms worsen, your pain is worsening and your temperature is above 101 Follow-up/Referrals: Ismael Eddy MD [Primary Care Provider] - 01/20/22 1:10 pm Diet: Regular Addtl Attending Provider Instructions: A discharge summary will be sent to your primary care physician to ensure continuity of care. You came in to the hospital for fevers, cough, and feeling sick. On imaging in the hospital you were found to have a pneumonia causing these symptoms. You were given rehydrating fluids and placed on antibiotics that would cover for the lung infection. Over the course of the hospital stay you showed good improvement with your fevers and how you felt. At this time we feel it is okay for you to return home and finish up the antibiotics at home. If you have any returning fevers please contact your primary care physician. Follow-up: * You should be seen by your primary physician within the next week. Medications: Your medication list has been reviewed and reconciled upon discharge to ensure accuracy and continuity of care. An updated list of all your medications is included with your hospital discharge paperwork. Please review this list closely, and make note of any changes. * You will be taking the medication Omnicef (Cefdinir) twice a day for the next 7 days. Take your medications as instructed; do not skip a dose of your medicines. Make sure all of your doctors know every medicine you are taking (including [id number] medicines, vitamins, and supplements). let your primary care provider know before taking any new medicines because some of these may interact with your current medications, or may make your symptoms worse. CONTACT YOUR PRIMARY CARE PROVIDER if you experience any of the following: * Fevers or shaking chills * Shortness of breath not relieved by inhalers, fainting * Sudden abdominal distension not relieved by catheterization. * Difficulty following your treatment plan, or difficulty taking medications CALL 911 OR GO TO THE EMERGENCY DEPARTMENT if you experience any of the following: * Sudden, severe abdominal pain or nausea/vomiting * Severe chest pain, or chest pain that radiates (moves) to your jaw or arm * Sudden, severe shortness of breath or difficulty breathing It was was our pleasure taking care of you here at [facility] . Thank you for allowing us to participate in your care. Pending Studies at Discharge: No Stand-Alone Forms: My [facility], Smoking Cessation Medications and DC Order Prescriptions: New cefdinir 300 mg capsule 300 mg PO BID 7 Days Qty: 14 RF: 0 Continued Combivent Respimat 20-100 mcg/actuation Mist 1 puff INHALATION QID PRN (Reason: SOB) RF: 0 labetalol 200 mg tablet 200 mg PO QAM RF: 0 sertraline 100 mg tablet 200 mg PO QAM RF: 0 alprazolam 0.25 mg tablet 0.25 mg PO QID PRN (Reason: Anxiety) RF: 0 multivitamin Tablet 1 tab PO DAILY RF: 0 ascorbic acid (vitamin C) [Vitamin C] 500 mg Tablet 500 mg PO DAILY RF: 0 vitamin E 400 unit Capsule 400 unit PO DAILY RF: 0 cholecalciferol (vitamin D3) [Vitamin D3] 25 mcg (1,000 unit) Tablet 25 mcg PO DAILY RF: 0 acetaminophen [Tylenol Extra Strength] 500 mg Tablet 1,000 mg PO Q6H PRN (Reason: Fever Or Pain) RF: 0 naproxen sodium [Aleve] 220 mg Tablet 220 mg PO Q12H PRN (Reason: Fever Or Pain) RF: 0 ibuprofen 200 mg Tablet 600 mg PO Q6H PRN (Reason: Fever Or Pain) RF: 0 budesonide-formoterol [Symbicort] 160-4.5 mcg/actuation HFA aerosol inhaler 2 puff INHALATION BID RF: 0 Discharge Orders: Discharge Order (Routine); Ordered 01/13/22 Ordered By: Compa Toscano Admission Data Admit Date/Time: 01/10/22 00:58 Attending Provider: Gris Mazariegos Admit Provider: Atif Wisdom Primary Care Provider: Ismael Eddy Other Providers: Ifeanyi Silveira ; Pasquariello,Atif D Other Interventions: Discharge Summary Assessment (RN) Last Done: 01/13/22 10:37 Supervising Physician Co-Signing Physician Notes Resident Physician Supervision Note: I independently interviewed and examined the patient and verified the carey history and physical, reviewed labs and image studies and agree with resident Dr. Toscano findings and care plan. Resident Activity Tracking Resident Involvement: Resident Care Provided Care Provided: Adult Hospital Medicine
== END 2022-01-13 12:30 | disposition home or self-care (01) | DRG 871 ==
LOC: ED 22:36 → SUATTDRO 01-10 00:58 → 2N 01-10 00:58 → 3N 01-10 17:46